=== PATIENT | female | born 1980 | race Caucasian/White ===

== ENCOUNTER 2017-09-11 14:28 | Emergency (ER) | payer BC, OTHER ==
[~2017-09-11] VITALS: Ht 175.3 cm; Wt 100.7 kg
[~2017-09-11 14:28] MED LIST: LEVO175T3 PO; LIOT5TAB9 PO; PRENTAB26 PO; SERT-234 PO
[2017-09-11 14:34] VITALS: TEMP 36.9; Ht 175.3 cm; Wt 100.7 kg
--- NOTE | 2017-09-11 15:11 | EMERGENCY ROOM VISIT NOTE ---
History First contact with patient: 14:39 Chief Complaint: ABDOMINAL PAIN Stated Complaint: PAIN IN LOWER ABD RADIATING TO BACK Nursing Triage Summary: 2 days ago started having menstrual cramps radiates to back knows it is not menstrual crampos because it is not that time of month called pcp office told to come to ed bilat lower abd pain. feels nauseated no appetite. no vomiting diarrhea History of Present Illness 37F with a PMHx of x 3 (2006, 2008, 2014), tubal ligation p/w bilateral lower abdominal pain that she describes as constant, dull and burning that has been present for 48 hours. Nothing makes the pain better, nothing makes the pain worse. She has no appetite. She is not taking anything for the pain. Pt never had her Appendix taken out. At first she thought she ate something funny and then she thought it was a RN DOCUMENTATION problem. States that the pain started as a 3/10 and then progressed to a 6/10. She tried to make an appointment with her PCP and couldn't get it. The triage nurse from [facility] sent her here. She states she does not feel ill. THe pain is also INSIDE her abdomen and not on the skin. LMP was at the end of August - this is between cycles for her. Pt denies fevers, chills, diarrhea, constipation, SOB, chest pain, dysuria, vaginal bleeding, vaginal discharge. Review of Systems See HPI for pertinent positives and negatives. A total of ten systems were reviewed and were otherwise negative. Constitutional: No fever, No chills ENT: No hearing loss Respiratory: No cough, No sputum, No wheezing, No shortness of breath Cardiovascular: No chest pain Abdomen: + pain, + nausea, No vomiting, No diarrhea, No constipation Genitourinary - Female: No dysuria, No urinary frequency, No urinary urgency , No urinary incontinence, No urinary retention Integumentary: No rash Past Medical/Surgical History Medical Problems: (1) Depression (2) Hypothyroidism Family History Cancer Hypertension Social History Smoking Status: Never Smoker Drug Use: none Marital Status: Housing Status: lives with family Occupation Status: employed Current/Historical Medications Scheduled Levothyroxine Sodium (Levothyroxine Sodium), 137 MCG PO DAILY Methylphenidate HCl (Methylphenidate HCl), 10 MG PO BID Sertraline HCl (Sertraline HCl), 200 MG PO DAILY Scheduled PRN Albuterol Hfa (Ventolin Hfa), 2 PUFFS INH Q4H PRN for Shortness of Breath Physical Exam Vital Signs Date Time Temp Pulse Resp B/P (MAP) Pulse Ox O2 Delivery O2 Flow Rate FiO2 09/11/17 14:34 36.9 96 18 128/74 97 Room Air Physical Exam Gen: No acute distress. HEENT: Head - normocephalic and atraumatic. Pupils are equal, round, and reactive to light. Extraocular eye muscles are intact and sclera are anicteric. Ears - bilaterally patent canals with noninjected tympanic membranes and no evidence of hemotympanum. Nose - moist nasal mucosa without discharge. Mouth - moist buccal mucosa. Oropharynx is nonerythematous and there is no tonsillar exudate or edema noted. Neck: Supple; no JVD, nuchal rigidity, cervical lymphadenopathy, or auscultated bruits. Heart: Regular rate and rhythm. There is a normal S1 and S2 with no murmurs, clicks, or gallops appreciated. Lungs: Clear to auscultation bilaterally with no wheezes, rales, or rhonchi. Abdomen: Soft, completely nontender, nondistended, with good bowel sounds. There are no palpable pulsatile masses or hepatosplenomegaly. There is no guarding, rigidity, or rebound noted. Abdominal pain was made worse when the patient sat up. Extremities: No evidence of cyanosis, clubbing, or edema. There are easily palpable peripheral pulses. Neuro:The patient is awake and alert, oriented to day, time, and place. Muscle strength is 5/5 in all 4 extremities. The patient has equal gas tester strength and equal pedal push and pull. There are no cerebellar signs. Medical Decision & Procedures ER Provider Diagnostic Interpretation: ABD/PELVIS NO IV OR ORAL CONT CT DOSE: 950.38 mGy.cm HISTORY: Pain Bilateral Lower Abdominal Pain TECHNIQUE: Multiaxial CT images of the abdomen and pelvis were performed without contrast. A dose lowering technique was utilized adhering to the principles of ALARA. COMPARISON STUDY: None. FINDINGS: The lung bases are clear. The unenhanced liver, spleen, gallbladder, pancreas, kidneys, and adrenal glands are within normal limits. No bowel wall thickening or obstruction. The pelvic organs are unremarkable. No suspicious lytic or blastic osseous lesions. IMPRESSION: No significant abnormality identified within the abdomen or pelvis. Laboratory Results 09/11/17 15:00 Red Blood Count 4.56, Mean Corpuscular Volume 79.6, Mean Corpuscular Hemoglobin 27.6, Mean Corpuscular Hemoglobin Concent 34.7, Mean Platelet Volume 8.7, Neutrophils (%) (Auto) 55.8, Lymphocytes (%) (Auto) 32.2, Monocytes (%) (Auto) 8.1, Eosinophils (%) (Auto) 3.7, Basophils (%) (Auto) 0.1, Neutrophils # (Auto) 3.73, Lymphocytes # (Auto) 2.16, Monocytes # (Auto) 0.54, Eosinophils # (Auto) 0.25, Basophils # (Auto) 0.01 09/11/17 15:00 Test 09/11/17 14:43 09/11/17 15:00 09/11/17 15:40 Urine Color YELLOW Urine Appearance CLEAR (CLEAR) Urine pH 7.0 (4.5-7.5) Urine Specific [place] 1.019 (1.000-1.030) Urine Protein NEG (NEG) Urine Glucose (UA) NEG (NEG) Urine Ketones NEG (NEG) Urine Occult Blood NEG (NEG) Urine Nitrite NEG (NEG) Urine Bilirubin NEG (NEG) Urine Urobilinogen NEG (NEG) Urine Leukocyte Esterase NEG (NEG) Urine WBC (Auto) 0 /hpf (0-5) Urine RBC (Auto) 0-4 /hpf (0-4) Urine Hyaline Casts (Auto) 1-5 /lpf (0-5) Urine Epithelial Cells (Auto) 5-10 /lpf (0-5) Urine Bacteria (Auto) NEG (NEG) Urine Test NEG (NEG) White Blood Count 6.70 K/uL (4.8-10.8) Red Blood Count 4.56 M/uL (4.2-5.4) Hemoglobin 12.6 g/dL (12.0-16.0) Hematocrit 36.3 % (37-47) Mean Corpuscular Volume 79.6 fL (80-100) Mean Corpuscular Hemoglobin 27.6 pg (25-34) Mean Corpuscular Hemoglobin Concent 34.7 g/dl (32-36) Platelet Count 240 K/uL (130-400) Mean Platelet Volume 8.7 fL (7.4-10.4) Neutrophils (%) (Auto) 55.8 % Lymphocytes (%) (Auto) 32.2 % Monocytes (%) (Auto) 8.1 % Eosinophils (%) (Auto) 3.7 % Basophils (%) (Auto) 0.1 % Neutrophils # (Auto) 3.73 K/uL (1.4-6.5) Lymphocytes # (Auto) 2.16 K/uL (1.2-3.4) Monocytes # (Auto) 0.54 K/uL (0.11-0.59) Eosinophils # (Auto) 0.25 K/uL (0-0.5) Basophils # (Auto) 0.01 K/uL (0-0.2) RDW Standard Deviation 38.2 fL (36.4-46.3) RDW Coefficient of Variation 13.3 % (11.5-14.5) Immature Granulocyte % (Auto) 0.1 % Immature Granulocyte # (Auto) 0.01 K/uL (0.00-0.02) Anion Gap 6.0 mmol/L (3-11) BUN/Creatinine Ratio 12.9 (10-20) Calcium Level 8.2 mg/dl (8.5-10.1) Total Bilirubin 0.3 mg/dl (0.2-1) Direct Bilirubin < 0.1 mg/dl (0-0.2) Aspartate Amino Transf (AST/SGOT) 19 U/L (15-37) Alanine Aminotransferase (ALT/SGPT) 30 U/L (12-78) Alkaline Phosphatase 90 U/L (45-117) Total Protein 7.2 gm/dl (6.4-8.2) Albumin 3.5 gm/dl (3.4-5.0) Medical Decision The patient's care and disposition was discussed with Dr. Khan, Attending ED Physician. This is a 37F with abdominal pain. Differential diagnosis include appendicitis , diverticulitis, inflammatory bowel disease, renal colic, PUD, biliary pathology, pancreatitis, mesenteric ischemia, aortic pathology, infections, genitourinary, UTI, perforated viscus, as well as others were entertained. Triage Nursing notes were reviewed. ED Course included an extensive history and physical exam, labs and imaging. 2:45 - Pt was seen and examined by resident. 3:00pm - Pt seen by Dr. Khan. 3:30 - Pelvis exam by Dr. Khan. 3:45 - Pt was updated with lab findings. Did not want anything for pain. Discussed management options with patient. She is OK for discharge and PCP follow up. The pt was informed about the findings as listed above. All questions were answered. Return instructions were outlined and the patient was discharged in good condition. The patient was referred to PCP for recheck of the current condition. Head Trauma GCS Score: 15 Impression Primary Impression: Abdominal pain of unknown cause Departure Information Dispostion Home / Self-Care Condition GOOD Referrals No Doctor, Assigned (PCP) Patient Instructions [facility] Additional Instructions Your lab work (CBC, CMP, Lipase) was normal and the CAT Scan of your Abdomen and Pelvis was also normal. There is no definitive etiology of your abdominal pain. We recommend a trial of 600mg Ibuprofen every 8 hours as needed for abdominal pain. Be sure to stay well hydrated while taking this medication. Please follow up with your PCP regarding your abdominal pain. Abdominal pain warning signs include increasing pain to the point where you cannot perform activities of daily living, worsening abdominal pain and fevers and worsening abdominal pain with an inability to tolerate oral fluids. If these occur please call your PCP or return to the ER. We also advise to drink at least 3L of water per day. Resident Involvement: Resident Care Provided Care Provided: Adult ED
[2017-09-11 15:15] LABS: BASO % 0.1 %; BASO ABS # 0.01 K/uL (0-0.2); EOS % 3.7 %; EOS ABS # 0.25 K/uL (0-0.5); HEMATOCRIT 36.3 % (37-47); HEMOGLOBIN 12.6 g/dL (12.0-16.0); IG# 0.01 K/uL (0.00-0.02); LYMPH % 32.2 %; LYMPH ABS # 2.16 K/uL (1.2-3.4); MEAN CELL VOLUME 79.6 fL (80-100); MEAN CORPUSCULAR HEMOGLOBIN 27.6 pg (25-34); MEAN CORPUSCULAR HGB CONC 34.7 g/dl (32-36); MEAN PLATELET VOLUME 8.7 fL (7.4-10.4); MONO % 8.1 %; MONO ABS # 0.54 K/uL (0.11-0.59); NEUT % 55.8 %; NEUT ABS # 3.73 K/uL (1.4-6.5); PLATELET COUNT 240 K/uL (130-400); RED CELL DISTRIBUTION WIDTH CV 13.3 % (11.5-14.5); RED CELL DISTRIBUTION WIDTH SD 38.2 fL (36.4-46.3)
--- NOTE | 2017-09-11 15:26 | DIAGNOSTIC IMAGING REPORT ---
ABD/PELVIS NO IV OR ORAL CONT CT DOSE: 950.38 mGy.cm HISTORY: Pain Bilateral Lower Abdominal Pain TECHNIQUE: Multiaxial CT images of the abdomen and pelvis were performed without contrast. A dose lowering technique was utilized adhering to the principles of ALARA. COMPARISON STUDY: None. FINDINGS: The lung bases are clear. The unenhanced liver, spleen, gallbladder, pancreas, kidneys, and adrenal glands are within normal limits. No bowel wall thickening or obstruction. The pelvic organs are unremarkable. No suspicious lytic or blastic osseous lesions. IMPRESSION: No significant abnormality identified within the abdomen or pelvis. The above report was generated using voice recognition software. It may contain grammatical, syntax or spelling errors. Electronically signed by: Elroy Sauer M.D. 09/11/2017 3:24 PM Dictated Date/Time: 09/11/2017 3:22 PM
[2017-09-11] MEDS ORDERED: VNTHFA/IN INH (15:31)
[2017-09-11] MEDS ORDERED: LEVO137T3 PO (15:31)
[2017-09-11] MEDS ORDERED: RTL10 PO (15:31)
[2017-09-11] MEDS ORDERED: ZLF/100 PO (15:31)
[2017-09-11 15:40] LABS: ALBUMIN 3.5 gm/dl (3.4-5.0); ALKALINE PHOSPHATASE 90 U/L (45-117); ALT/SGPT 30 U/L (12-78); BLOOD UREA NITROGEN 9 mg/dl (7-18); CALCIUM 8.2 mg/dl (8.5-10.1); CARBON DIOXIDE 25 mmol/L (21-32); GLUCOSE 114 mg/dl (70-99); TOTAL PROTEIN 7.2 gm/dl (6.4-8.2)
[2017-09-11 15:45] LABS: CREATININE 0.71 mg/dl (0.60-1.20); POTASSIUM 3.7 mmol/L (3.5-5.1); SODIUM 139 mmol/L (136-145)
[2017-09-11 15:50] LABS: AST/SGOT 19 U/L (15-37)
[2017-09-11 16:00] LABS: LIPASE 69 U/L (73-393)
[2017-09-11 16:01] VITALS: BP 115/76; PULSE 82; O2SAT 97
--- NOTE | 2017-09-11 17:13 | EMERGENCY ROOM VISIT NOTE ---
History Report prepared by Pancho: Bobo Zimmerman Under the Supervision of: Dr. Ramos Khan D.O. First contact with patient: 14:39 Chief Complaint: ABDOMINAL PAIN Stated Complaint: PAIN IN LOWER ABD RADIATING TO BACK Nursing Triage Summary: 2 days ago started having menstrual cramps radiates to back knows it is not menstrual crampos because it is not that time of month called pcp office told to come to ed bilat lower abd pain. feels nauseated no appetite. no vomiting diarrhea History of Present Illness The patient is a 37 year old female who presents to the Emergency Room with complaints of constant lower abdominal pain beginning two days ago. She rates her pain as a 6/10 in severity. Her pain radiates into her back. The patient describes her pain as "dull" and "burning". She called her PCP today regarding her symptoms, but was unable to be seen. She notes that she has had a small amount of "mucousy-brown discharge" vaginally, but this is normal for her. Pt denies headache, change in vision, fevers, chest pain, shortness of breath, nausea, vomiting, diarrhea, pain with urination, vaginal bleeding, and melena. LNMP was two weeks ago. The patient has a history of tubal ligation and C- section (x3). She is sexually active with a single partner. She has no history of STI. The patient reports lack of appetite recently. Source of History: patient Onset: Two days ago Position: abdomen (lower) Symptom Intensity: 6/10 Quality: burning, dull Timing: constant Associated Symptoms: + back pain, No fevers, No headache, No chest pain, No SOB, No nausea, No vomiting, No melena, No diarrhea, No urinary symptoms Review of Systems See HPI for pertinent positives & negatives. A total of 10 systems reviewed and were otherwise negative. Past Medical & Surgical Medical Problems: (1) Depression (2) Hypothyroidism Family History Cancer Hypertension Social History Smoking Status: Never Smoker Drug Use: none Marital Status: Housing Status: lives with family Occupation Status: employed Current/Historical Medications Scheduled Levothyroxine Sodium (Levothyroxine Sodium), 137 MCG PO DAILY Methylphenidate HCl (Methylphenidate HCl), 10 MG PO BID Sertraline HCl (Sertraline HCl), 200 MG PO DAILY Scheduled PRN Albuterol Hfa (Ventolin Hfa), 2 PUFFS INH Q4H PRN for Shortness of Breath Allergies Coded Allergies: Iodinated Diagnostic Agents (Verified Allergy, Severe, HIVES, SOB, 07/27/14 ) POLLEN (Verified Allergy, Mild, ITCHING, SNEEZING, 07/27/14) Physical Exam Vital Signs Date Time Temp Pulse Resp B/P (MAP) Pulse Ox O2 Delivery O2 Flow Rate FiO2 09/11/17 16:01 82 18 115/76 97 Room Air 09/11/17 14:34 36.9 96 18 128/74 97 Room Air Physical Exam GENERAL: Sitting up in bed, alert, well appearing, well nourished, no distress, non-toxic EYE EXAM: normal conjunctiva. OROPHARYNX: no exudate, no erythema, lips, buccal mucosa, and tongue normal and mucous membranes are moist NECK: supple, no nuchal rigidity, no adenopathy, non-tender LUNGS: Clear to auscultation. Normal chest wall mechanics HEART: no murmurs, S1 normal and S2 normal ABDOMEN: abdomen soft, normo-active bowel sounds, no masses, no rebound or guarding. Faint tenderness in the suprapubic region. BACK: Back is symmetrical on inspection and there is no deformity, no midline tenderness, no CVA tenderness. PELVIC: Normal female external genitalia. No cervical motion tenderness. Normal vaginal mucosa. SKIN: no rashes and no bruising UPPER EXTREMITIES: upper extremities are grossly normal. LOWER EXTREMITIES: No pitting edema. NEURO EXAM: Normal sensorium, cranial nerves II-XII grossly intact, normal speech, no gross weakness of arms, no gross weakness of legs. Medical Decision & Procedures ER Provider Diagnostic Interpretation: Radiology results as stated below per my review and the radiologist's interpretation: ABD/PELVIS NO IV OR ORAL CONT FINDINGS: The lung bases are clear. The unenhanced liver, spleen, gallbladder, pancreas, kidneys, and adrenal glands are within normal limits. No bowel wall thickening or obstruction. The pelvic organs are unremarkable. No suspicious lytic or blastic osseous lesions. IMPRESSION: No significant abnormality identified within the abdomen or pelvis. The above report was generated using voice recognition software. It may contain grammatical, syntax or spelling errors. Electronically signed by: Elroy Sauer M.D. 09/11/2017 3:24 PM Laboratory Results 09/11/17 15:00 Red Blood Count 4.56, Mean Corpuscular Volume 79.6, Mean Corpuscular Hemoglobin 27.6, Mean Corpuscular Hemoglobin Concent 34.7, Mean Platelet Volume 8.7, Neutrophils (%) (Auto) 55.8, Lymphocytes (%) (Auto) 32.2, Monocytes (%) (Auto) 8.1, Eosinophils (%) (Auto) 3.7, Basophils (%) (Auto) 0.1, Neutrophils # (Auto) 3.73, Lymphocytes # (Auto) 2.16, Monocytes # (Auto) 0.54, Eosinophils # (Auto) 0.25, Basophils # (Auto) 0.01 09/11/17 15:00 Test 09/11/17 14:43 09/11/17 15:00 09/11/17 15:40 Urine Color YELLOW Urine Appearance CLEAR (CLEAR) Urine pH 7.0 (4.5-7.5) Urine Specific [place] 1.019 (1.000-1.030) Urine Protein NEG (NEG) Urine Glucose (UA) NEG (NEG) Urine Ketones NEG (NEG) Urine Occult Blood NEG (NEG) Urine Nitrite NEG (NEG) Urine Bilirubin NEG (NEG) Urine Urobilinogen NEG (NEG) Urine Leukocyte Esterase NEG (NEG) Urine WBC (Auto) 0 /hpf (0-5) Urine RBC (Auto) 0-4 /hpf (0-4) Urine Hyaline Casts (Auto) 1-5 /lpf (0-5) Urine Epithelial Cells (Auto) 5-10 /lpf (0-5) Urine Bacteria (Auto) NEG (NEG) Urine Test NEG (NEG) White Blood Count 6.70 K/uL (4.8-10.8) Red Blood Count 4.56 M/uL (4.2-5.4) Hemoglobin 12.6 g/dL (12.0-16.0) Hematocrit 36.3 % (37-47) Mean Corpuscular Volume 79.6 fL (80-100) Mean Corpuscular Hemoglobin 27.6 pg (25-34) Mean Corpuscular Hemoglobin Concent 34.7 g/dl (32-36) Platelet Count 240 K/uL (130-400) Mean Platelet Volume 8.7 fL (7.4-10.4) Neutrophils (%) (Auto) 55.8 % Lymphocytes (%) (Auto) 32.2 % Monocytes (%) (Auto) 8.1 % Eosinophils (%) (Auto) 3.7 % Basophils (%) (Auto) 0.1 % Neutrophils # (Auto) 3.73 K/uL (1.4-6.5) Lymphocytes # (Auto) 2.16 K/uL (1.2-3.4) Monocytes # (Auto) 0.54 K/uL (0.11-0.59) Eosinophils # (Auto) 0.25 K/uL (0-0.5) Basophils # (Auto) 0.01 K/uL (0-0.2) RDW Standard Deviation 38.2 fL (36.4-46.3) RDW Coefficient of Variation 13.3 % (11.5-14.5) Immature Granulocyte % (Auto) 0.1 % Immature Granulocyte # (Auto) 0.01 K/uL (0.00-0.02) Anion Gap 6.0 mmol/L (3-11) Est Creatinine Clear Calc Drug Dose 134.4 ml/min Estimated GFR () 124.4 Estimated GFR (Non- 107.3 BUN/Creatinine Ratio 12.9 (10-20) Calcium Level 8.2 mg/dl (8.5-10.1) Total Bilirubin 0.3 mg/dl (0.2-1) Direct Bilirubin < 0.1 mg/dl (0-0.2) Aspartate Amino Transf (AST/SGOT) 19 U/L (15-37) Alanine Aminotransferase (ALT/SGPT) 30 U/L (12-78) Alkaline Phosphatase 90 U/L (45-117) Total Protein 7.2 gm/dl (6.4-8.2) Albumin 3.5 gm/dl (3.4-5.0) Lipase 69 U/L (73-393) Date/Time Source Procedure Growth Status 09/11/17 15:40 Cervix Exudate Trichomonas Preparation - Final Complete Laboratory results per my review. ED Course ED COURSE: Vital signs were reviewed and appeared normal. The patients medical record was reviewed The above diagnostic studies were performed and reviewed. ED treatments and interventions as stated above. 1441: The patient was evaluated in room A12B. A complete history and physical examination was performed. 1615: Upon reevaluation, the patient is resting comfortably. I discussed my findings with the patient and she understands and agrees with the treatment plan. Based on the patients age, coexisting illnesses, exam and lab findings the decision to treat as an outpatient was made. The patient remained stable while under my care. The patient appeared well at the time of discharge. Medical Decision Differential diagnoses includes but is not limited to gastritis, peptic ulcer disease, GERD, gallbladder disease, pancreatitis, small bowel obstruction, acute coronary syndrome, pericarditis, ischemic bowel, irritable bowel disease, irritable bowel syndrome, appendicitis, diverticulitis, malignancy, hernia, urinary tract infection, torsion, /ectopic , perforation, trauma, infectious. Patient is a 37-year-old female that presents the ER for lower pelvic/abdominal pain. She denies any new vaginal bleeding or vaginal discharge. No urinary symptoms. Abdominal exam is fairly benign. CBC along with BMP, LFTs, bilirubin lipase is normal. UA was unremarkable. was normal. CT abdomen pelvis was benign. Pelvic was unremarkable. Vitals are stable. Patient was updated at bedside. She seen independently of the resident. She is discharged follow-up with PCP as an outpatient with lower abdominal pain which I favor is likely pelvic in origin without signs of infection. Discussed with Pt concerning signs and symptoms to watch out for. Pt was instructed to follow up with their PCP and discussed with the patient their option to return to the ED at anytime for persistent or worsening symptoms. The appropriate anticipatory guidance and out-patient management, including indications for return to the emergency department, were explained at length to the patient and understood. Medication Reconcilliation Current Medication List: was personally reviewed by me Blood Pressure Screening Patient's blood pressure: Normal blood pressure Blood pressure disposition: Did not require urgent referral Impression Primary Impression: Abdominal pain of unknown cause Scribe Attestation The scribe's documentation has been prepared under my direction and personally reviewed by me in its entirety. I confirm that the note above accurately reflects all work, treatment, procedures, and medical decision making performed by me. Departure Information Dispostion Home / Self-Care Referrals No Doctor, Assigned (PCP) Forms Call Back Authorization, HOME CARE DOCUMENTATION FORM, IMPORTANT VISIT INFORMATION Patient Instructions Abdominal Pain - [facility], [facility] Additional Instructions Your lab work (CBC, CMP, Lipase) was normal and the CAT Scan of your Abdomen and Pelvis was also normal. There is no definitive etiology of your abdominal pain. We recommend a trial of 600mg Ibuprofen every 8 hours as needed for abdominal pain. Be sure to stay well hydrated while taking this medication. Please follow up with your PCP regarding your abdominal pain. Abdominal pain warning signs include increasing pain to the point where you cannot perform activities of daily living, worsening abdominal pain and fevers and worsening abdominal pain with an inability to tolerate oral fluids. If any of the above occur please call your PCP or return to the ER. We also advise to drink at least 3L of water per day.
== END 2017-09-11 16:18 | disposition home or self-care (01) ==
LOC: C.EDB 14:29 → C.EDA 16:18
DX: R10.30 Lower abdominal pain, unspecified (principal); E03.9 Hypothyroidism, unspecified; F32.9 Major depressive disorder, single episode, unspecified; Z91.041 Radiographic dye allergy status; Z91.048 Other nonmedicinal substance allergy status

== ENCOUNTER 2023-09-16 13:18 | Observation (INO) ==
--- OUTSIDE RECORDS SUMMARY | 2023-09-16 13:21 | External Medical Summary | Summary of Care ---
Author Name Unknown Organization [facility] Address [address] [address] Phone [phone] Care Team Providers Care Wool Supplier Name Role Phone Chaya Thao DO Primary Care Provider [phone] Reason for Visit * Reason Comments Outpatient Testing Encounter Details Date Type Department Care Team (Late st Contact Info) Description 08/27/2023 8:30 AM EDT Laboratory Laboratory, [facility] [address] [facility] [place] [phone] [facility] [address] [facility] [place] [address] Screening for cardiovascular condition; [employer] Research Other*[id number] Allergies Active Allergy Reactions Criticality Noted Date Comments Iodinated Contrast Media 03/23/2010 hives documented as of this encounter (statuses as of 08/27/2023) Medications Medication Sig Dispensed Refills Start Date End Date Status Cholecalciferol (VITAMIN D-3) 1000 UNITS Capsule Take 1 Cap by mouth daily. 0 12/22/2015 Active fexofenadine (TOMMY ALLERGY) 180 MG Tablet Take 1 Tab by mouth daily. Use as needed for worsening nasal allergy symptoms 0 01/21/2020 Active FLUoxetine HCl 40 MG Oral Capsule (PROzac) Take 2 Capsules by mouth in the morning. Pt takes 2 tablets daily. . 0 Active Fluticasone Propionate 50 MCG/ACT Nasal Suspension (Flonase)Indication s:Seasonal allergic rhinitis due to pollen Administer 2 Sprays into nostril daily. 16 g 5 05/27/2020 Active Additional Information Patient not taking.Reported on 08/17/2023 Famotidine 20 MG Oral Tablet (Pepcid)Indications :Acute gastritis without hemorrhage, unspecified gastritis type Take 1 Tab by mouth 2 times a day. 60 Tab 11 08/31/2020 Active Dicyclomine HCl 10 MG Oral Capsule (Bentyl) Take 1 Cap by mouth 4 times a day as needed (for abdomninal pain). 60 Cap 2 09/21/2020 Active Albuterol Sulfate HFA 108 (90 Base) MCG/ACT Inhalation Aerosol SolutionIndications :Mild intermittent asthma with exacerbation Inhale 2 Puffs by mouth every 6 hours as needed for Cough or Wheezing. 18 g 2 05/09/2021 Active Fluticasone Furoate-Vilanterol 100-25 MCG/INH Inhalation Aerosol Powder Breath Activated (BREO ellipta) Inhale by mouth 1 Puff in the morning. Use for worsening/persiste nt asthma symptoms. 28 Each 5 08/05/2021 Active Additional Information Patient not taking.Reported on 08/17/2023 Ferrous Sulfate 325 (65 Fe) MG Oral Tablet (Feosol) Take 1 Tablet by mouth daily with breakfast. 0 Active Armodafinil 200 MG Oral Tablet 150 0 08/17/2022 Active Omeprazole 40 MG Oral Capsule Delayed Release (PriLOSEC) take 1 capsule by mouth every morning 1 hour before breakfast 30 Capsule 11 12/12/2022 Active Synthroid 150 MCG Oral Tablet 1 tablet 6 days a week and 2 tablets 1 day a week (at least 30 min prior to breakfast or other meds) levothyroxine- generic not working 40 Tablet 5 12/13/2022 Active Montelukast Sodium 10 MG Oral Tablet (Singulair) take 1 tablet by mouth every evening 30 Tablet 2 12/15/2022 Active documented as of this encounter (statuses as of 08/27/2023) Active Problems Problem Noted Date Diagnosed Date Vaginal burning 04/13/2023 PLMD (periodic limb movement disorder) Abnormal uterine bleeding (AUB) 01/12/2023 Mood swings 01/12/2023 JORDAN on CPAP 12/02/2021 Nostril infection 02/17/2021 Nasal abscess 12/07/2020 Primary osteoarthritis of both knees 06/24/2020 Recurrent sinus infections 01/21/2020 Mild persistent asthma without complication 01/05 Major depressive disorder, recurrent 05/27/2018 Chronic fatigue 02/05/2018 Primary hypothyroidism 11/13/2016 History of 3 sections 06/29/2008 Overview: Repeat C-Sx at term scheduled Patient given flu vaccine. 01/25/2009 Reyna Florentino RN VSD (ventricular septal defect) 02/06/2003 Overview: echo at 22 -24wks SBE (subacute bacterial endocarditis) prophylaxi s candidate 02/06/2003 documented as of this encounter (statuses as of 08/27/2023) Resolved Problems Problem Noted Date Diagnosed Date Resolved Date LUQ pain 12/02/2021 01/12/2023 Allergic conjunctivitis, bilateral 01/21/2020 09/04/2020 Allergic rhinitis 01/21/2020 09/04/2020 Snoring 02/05/2018 09/04/2020 Bilateral carpal tunnel syndrome 04/06/2016 09/04/2020 Palpitations 03/03/2016 09/04/2020 Acquired autoimmune hypothyroidism 02/10/2015 11/13/2016 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 Placenta previa without hemorrhage 06/29/2014 12/30/2016 Supervision of other high-risk 03/16/2014 04/06/2016 Overview: ICD-10 update of inactive term Placenta previa without hemorrhage 03/16/2014 07/17/2014 Overview: 1. Discussed complications associated with placenta previa. The primary risk is bleeding. Also explained that there is 5-10% risk of a placenta accreta. 2. Recommend pelvic rest for any previa that is experiencing vaginal bleeding or that persists after 32 weeks. 3. Recommend Maternal Medicine ultrasound to evaluate placental position at 32 weeks gestation and if still persists, then again at 35-36 weeks. 4. Recommend section delivery between 36w0d and 37w6d for any previa within 1cm of the internal cervical os without amniocentesis for lung maturity. 5. If placental edge is 1cm or greater from the internal cervical os and no vaginal bleeding has occurred, then trial of labor should be considered and may continue to 41 weeks gestation. 6. Characteristics suspicious for placenta accreta, such as placental lakes and/or loss of uterine/placental definition, are not appreciated on today's ultrasound. If there is sonographic concern for accreta or high clinical suspicion, we recommend delivery by between 34w0d and 35w6d. Acute sinusitis 03/09/2014 04/06/2016 AMA (advanced maternal age) multigravida 35+ 4 12/30/2016 Depression complicating , antepartum 01/10/20 14 09/04/2020 Medication exposure during f irst trimester of 01/09/2014 12/30/2016 Hypothyroid in , antepartum 12/05/2013 07/17/2014 Overview: 12/05/13 @ [facility] pt taking Levothyroxine 175mcg and Liothyronine 5mg daily; TSH: 1.65 Endocrinology 12/17/13: increased cytomel 5mg in AM, 2.5mg in PM Elderly multigravida 12/05/2013 015 Overview: Desires [id number]; offer MSAFP after 15wks Patient received flu vaccine. 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 01/17/2009 12/05/2013 Overview: +RV culture; IV Abx in labor Ovarian cyst 07/05/2008 12/05/2013 Overview: L ovarian cyst on early sono -- repeat scan early August-[facility] for 08/03 Nausea with vomiting 06/29/2008 014 Overview: Diet discussed. Rx Phenergan 25 mg tabs and Zofran 8 mg ODT. Poor growth, affecting management of mother, antepartum condition or complication 09/17/2006 02/06/2008 Allergic conjunctivitis 03/16/200505/2015 Intermittent asthma with rel iever use up to twice per week 03/16/2005 01/21/2020 Headache 11/25/2003 02/06/2008 Overview: ICD-10 update of inactive term Hypothyroidism 02/06/2003 12/05/2013 Overview: On Meds -- check studies every trimester TSH @28w-13; increase Levoythyroxine to 175mcg daily repeat TSH in 4-6weeks TSH@ 36w -5.72; increase Levothyroxine to 200mcg Allergic rhinitis 02/06/2003 04/06/2016 EXTRINSIC ASTHMA, UNSPEC 02/06/200306/2007 PATELLAR TENDINITIS- patellar dislocation 02/06/2003 02/06/2008 Major depressive disorder 02/06/2003 Overview: On Zoloft 200mg daily ICD-10 update of inactive term PRESCRIP-ORAL CONTRACEPT 02/06/200306/2007 documented as of this encounter (statuses as of 08/27/2023) Immunizations Name Administration Dates Next Due COVID-19 mRNA, LNP-s, No Pre serve, 2-Dose Series (Moderna) 07/03/2020,05/29/2020 H1N1 2009 Influenza, IM 03/15/2009 Hepatitis B, 20+ yrs 04/12/2023,11/10/2022,10/11 Pneumococcal Conjugate Vacci ne, 20-valent ([id number]) 10/11/2022 Pneumococcal Polysaccharide PPV23 (Pneumovax) 05/31/2011,2011(Deferred: Patient Refused) Seasonal Influenza, PF, 6 M & above, IM , (FluLaval or Fluzone) 03/09/2023,02/10/2022,03/24/2021,02/05,01/16/2019,02/05/2018,01/26/20 17 Seasonal Influenza, Quadriva lent, No Preserve, IM 04/06/2016 04/06/2017 Seasonal Influenza, Split, I IV3, With Preserve, Inj 01/29/2014,03/10/2013,02/14/2012,02/05,01/25/2009,05/02/2007 TDAP (age 10 and older)(Boostrix) 07/24/2014 TDAP (age 11 and older)(Adacel) 02/13/20,09/03/2008(Deferred: Patient Refused) documented as of this encounter Social History Tobacco Use Types Packs/Day Years Used Date Smoking Tobacco: Never Smokeless Tobacco: Never Comments:no passive smoke Alcohol Use Standard Drinks/Week Comments No 0 (1 standard drink = 0.6 oz pur e alcohol) PHQ-2 Answer Date Recorded PHQ Adult Total Score 2 04/20/2021 Hunger Vital Sign Answer Date Recorded Worried About Running Out of Food in the Last Ye ar Never true 05/22/2019 Ran Out of Food in the Last Year Never true 05/22/2019 Sex and Gender Information Value Date Recorded Sex Assigned at Female 11/19/2019 9:42 AM EDT Gender Identity Female 11/19/2019 9:42 AM EDT Sexual Orientation Straight 11/19/2019 9: 42 AM EDT Job Start Date Occupation Industry Not on file Not on file Not on file documented as of this encounter Plan of Treatment Upcoming Encounters Date Type Department Care Team (Latest Contact Info) Description 08/27/2023 10:40 AM EDT Office Visit Family Practice [facility] [address] [facility] [place] [address] June Colvin DO [address] [place] [address] 09/20/2023 3:30 PM EDT Office [facility] [place] [facility] [phone] Parth Sarabia MD [address] [facility] [place] [address] 09/28/2023 7:30 AM EDT Hospital Encounter OR [facility], Operating Room, [facility] 1st Floor [address] [place] [address] Parth Sarabia MD [address] [place] [address] 09/28/2023 7:30 AM EDT - 09/28/2023 9:50 AM EDT Surgery OR [facility], Operating Room, [facility] 1st Floor [address] [place] [address] Parth Sarabia MD [address] [place] [phone] LAPAROSCOPIC HYSTERECTOMY REMOVAL TUBES AND/OR OVARIES FOR UTERUS 250GM OR LESS Pending Results Name Type Priority Associated Diagnoses Date /Time LIPID PANEL WITH DIRECT LDL IF TG IS HIGH Lab Routine Screening for cardiovascular condition 08/27/2023 8:37 AM EDT MYCODE SUBSEQUENT ADULT Lab Routine [employer] Other*[id number] 08/27/2023 8:37 AM EDT MYCODE SST1 Lab Routine [employer] Other*[id number] 08/27/2023 8:37 AM EDT MYCODE SST2 Lab Routine [employer] Other*[id number] 08/27/2023 8:37 AM EDT Scheduled Orders Name Type Priority Associated Diagnoses Orde r Schedule LIPID PANEL WITH DIRECT LDL IF TG IS HIGH Lab Routine Screening for cardiovascular condition Expected: 08/27/2023 (Approximate), Expires: 08/26/2024 Scheduled Procedures Name Priority Associated Diagnoses Date/Ti me LAPAROSCOPIC HYSTERECTOMY REMOVAL TUBES AND/OR OVARIES FOR UTERUS 250GM OR LESS Abnormal uterine bleeding (AUB) Adenomyosis Pelvic pain in female 09/28/2023 7:30 AM EDT COLONOSCOPY FLEXIBLE PROXIMAL DIAGNOSTIC Recall Screening for colon cancer Health Maintenance Due Date Last Done Comments HPV/Co-Test 02/25/2008 Lipid Panel 10/19/2010 10/19/2005 COVID-19 Vaccine ( season) 2023 07/03/2020, 05/29/2020 Mammogram 03/26/2024 03/26/2023, 03/07, 04/12/2021, Additional history exists DTaP,Tdap,and Td Vaccines (3 - Td or Tdap) 07/24/2024 07/24/2014, 02/12/2009 TSH 08/16/2024 08/17/2023, 05/07, 03/19/2023, Additional history exists Cervical Cancer Screening 01/10/2025 Pap Smear 01/10/2025 01/10/2022, 07/06, 12/19/2015, Additional history exists Diabetes Screening 03/19/2026 03/19/2023, 0 12/01/2022, 08/30/2022, Additional history exists COLONOSCOPY-EVERY 5 YRS AGES 18-100 11/24/2026 11/24/2021, 11/24/2021, 09/27/2020, Additional history exists COLONOSCOPY-ANNUAL AGES 18-100 Discontinued 11/24/2021, 11/24/2021, 09/27/2020, Additional history exists Pneumococcal Vaccine: Pediatrics (0 to 5 Years) and At-Risk Patients (6 to 64 Years) Completed 10/11/2022, 05/31/2011 Influenza Vaccine (FLU shot) Completed 03/09/2023, 02/10/2022, 03/24/2021, Additional history exists Hepatitis B Completed 04/12/2023, 0711/2022, 10/11/2022 GARDASIL-HPV IMMUNIZATION SERIES Aged Out No longer eligible based on patient's age to complete this topic MENINGOCOCCAL (MENACTRA/MENVEO) Aged Out No longer eligible based on patient's age to complete this topic documented as of this encounter Medical Devices Not on filedocumented as of this encounter Visit Diagnoses Diagnosis Screening for cardiovascular condition Screening for other and unspecified cardiovascular conditions [employer] Other*[id number] Abnormal uterine bleeding (AUB) Adenomyosis Endometriosis of uterus Pelvic pain in female Unspecified symptom associated with female genital organs documented in this encounter Care Teams Wool Supplier Relationship Specialty Start Date End Date Chaya Thao DO [address] [place] [phone] PCP - General Family Medicine 03/03/16 documented as of this encounter
--- OUTSIDE RECORDS SUMMARY | 2023-09-16 13:21 | External Medical Summary | Summary of Care ---
Author Name Unknown Organization [facility] Address [address] [facility] [place] [address] Phone [phone] Care Team Providers Care Lockstitch Collar Setter Name Role Phone Chaya Thao DO Primary Care Provider [phone] Reason for Visit * Reason Comments NEW PATIENT Right middle finger pain Encounter Details Date Type Department Care Team (Late st Contact Info) Description 08/31/2023 8:15 AM EDT Office Visit Orthopaedics [facility] [address] [place] [address] SharerLibia PA-C [address] [place] [address] Closed nondisplaced fracture of middle phalanx of left middle finger, initial encounter*; Pain of left middle finger Allergies Active Allergy Reactions Criticality Noted Date Comments Iodinated Contrast Media 03/23/2010 hives documented as of this encounter (statuses as of 08/31/2023) Medications Medication Sig Dispensed Refills Start Date [...] every evening 30 Tablet 2 12/15/2022 Active Hospital, Clinic, or Other Facility Administered Medication Ordered Dose Route Frequency Start Date End Date Status Albuterol Sulfate (Proventil) (2.5 MG/3ML) 0.083% inhalation solution 2.5 mgIndications:SOB (shortness of breath),Mild persistent asthma without complication 2.5 mg NEBULIZER ONCE PRN 08/27/2023 08/26/2024 Active documented as of this encounter (statuses as of 08/31/2023) Active Problems Problem Noted Date Diagnosed Date [...] as of this encounter (statuses as of 08/31/2023) Resolved Problems Problem Noted Date Diagnosed Date [...] in AM, 2.5mg in PM Elderly multigravida 12/05/201307/17/ 015 Overview: Desires [id number]; offer MSAFP after 15wks Patient received flu vaccine. 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 Rx Phenergan 25 mg tabs and Zofran 8 mg ODT. Poor growth, affecting management of mother, antepartum condition or complication 09/17/2006 02/06/2008 Allergic conjunctivitis 03/16/2005 1205/2015 Intermittent asthma with rel iever use up [...] as of this encounter (statuses as of 08/31/2023) Immunizations Name Administration Dates Next Due COVID-19 mRNA, LNP-s, No Pre serve, 2-Dose Series (Moderna) 07/03/2020,05/29/2020 H1N1 2009 Influenza, IM 03/15/2009 Hepatitis B, 20+ yrs 04/12/2023,11/10/2022,10/11 Pneumococcal Conjugate Vacci ne, 20-valent ([id number]) 10/11/2022 Pneumococcal Polysaccharide PPV23 (Pneumovax) 05/31/2011,2011(Deferred: Patient Refused) Seasonal Influenza, PF, 6 M & above, IM , (FluLaval or Fluzone) 03/09/2023,02/10/2022,03/24/2021,02/05,01/16/2019,02/05/2018,01/26/20 17 Seasonal Influenza, Quadriva lent, No Preserve, IM 04/06/2016 04/06/2017 Seasonal Influenza, Split, I IV3, With Preserve, Inj 01/29/2014,03/10/2013,02/14/2012,02/05,01/25/2009,05/02/2007 TDAP (age 10 and older)(Boostrix) 07/24/2014 TDAP (age 11 and older)(Adacel) 02/13/20 09,09/03/2008(Deferred: Patient Refused) documented as of this encounter [...] on file documented as of this encounter Progress Notes * Sharer, Libia Ortega PA-C - 08/31/2023 8:34 AM EDT Lenka Meyer is a 43 year old female who presents for consultation to [facility] for right hand injury/pain. Consult requested by Self. Lenka Meyer is here unaccompanied History: Patient is a 43 year old female here today with right hand/finger pain. Reports pain started 08/30/2023. Patient states she injured her hand when she jammed her finger into a table as it was falling.She complains of pain along PIP joint. Reports difficulty with finger motion. Notes associated swelling. She denies any previous hand injuries. She denies any numbness or tingling. Review of systems: All others negative except those noted above in HPI. Past Medical History: Diagnosis Date ALLERGIC RHINITIS NOS 02/06/2003 Asthma, severity to be determined 03/16/2005 rare inhaler use Carpal tunnel syndrome on both sides 2015 Chronic fatigue 02/05/2018 Depressive disorder, not elsewhere classified 02/06/2003 using zoloft Hypothyroidism 02/06/2003 Rick's INFORMATION was told to have IgG transfusions Palpitations 03/03/2016 SBE (subacute bacterial endocarditis) prophylaxis candidate 02/06/2003 Sleep apnea, obstructive Snoring 02/05/2018 VENTRICULAR SEPTAL DEFECT-almost closed 02/06/2003 Family History Problem Relation Age of Onset Thyroid Disorder Mother hypothyroidism Allergies Mother nasal allergies Depression Mother Heart Disorder Father a.fib Hypertension Father Allergies Father allergic rhinitis Allergies Daughter food allergies; nasal allergies Asthma Daughter Allergies Daughter nasal and food allergies Cancer Grandmother (Maternal) Hod dx Allergies Grandfather (Maternal) nasal allergies Heart Disorder Grandfather (Maternal) CHF Prostate cancer Grandfather (Maternal) Stroke Grandmother (Paternal) TIA Skin cancer Grandmother (Paternal) Macular degeneration Grandmother (Paternal) No Past Hx Son Social History Socioeconomic History Marital status: Spouse name: Stone Alvarado Number of children: 2 Years of education: 17 Highest education level: Not on file Occupational History Occupation: housewife Tobacco Use Smoking status: Never Smokeless tobacco: Never Tobacco comments: no passive smoke Vaping Use Vaping Use: Never used Substance and Sexual Activity Alcohol use: No Drug use: No Sexual activity: Yes Partners: Male control/protection: Surgical Comment: BTL Other Topics Concern Not on file Social History Narrative Not on file Social Determinants of Health Financial Resource Strain: Not on file Food Insecurity: No Food Insecurity (05/22/2019) Hunger Vital Sign Worried About Running Out of Food in the Last Year: Never true Ran Out of Food in the Last Year: Never true Transportation Needs: Not on file Physical Activity: Not on file Stress: Not on file Social Connections: Not on file Intimate Partner Violence: Not on file Housing Stability: Not on file Past Surgical History: Procedure Laterality Date CARPAL TUNNEL SURGERY Bilateral 05/2016, and 09/2016 DELIVERY 2006, 2008, 2015 COLONOSCOPY 09/27/2020 COLONOSCOPY, DIAGNOSTIC (RECTUM) 11/24/2021 normal, repeat 5 yrs / COLONOSCOPY FLEXIBLE PROXIMAL DIAGNOSTIC performed by Audrey Rothman MD at ENDOSCOPY [facility] DENTAL SURGERY PROCEDURE NEC 1998 wisdom teeth EGD, FLEXIBLE, DIAGNOSTIC 11/24/2021 normal bx / ESOPHAGOGASTRODUODENOSCOPY (EGD), FLEXIBLE, TRANSORAL, DIAGNOSTIC performed by Audrey Mendieta MD at ENDOSCOPY [facility] INJECT DX/THER SUBSTANCE INTERLAMINAR LUMBAR/SACRAL W IMAGE GUIDE 11/04/2018 INJECTION SPINE LUMBAR OR SACRAL performed by Trey Calle DO at OR [facility] REPAIR OF KNEE CARTILAGE Right 10/2016 Dr. Dey Physical Exam There were no vitals filed for this visit. Estimated body mass index is 34.83 kg/m as calculated from the following: Height as of 08/17/23: 1.753 m (5' 9.02"). Weight as of 08/27/23: 107 kg (236 lb). General: generally well-nourished and in no acute distress HEENT: normocephalic, atraumatic, sclera anicteric. Psych: mood and affect normal , cooperative Card: Peripheral pulses: normal in affected extremity (s) Resp: equal chest rise, non-tachypneic, non-labored breathing Skin: no rash, normal Neuro: Coordination: normal; Sensation: normal on affected extremity (s) MSK: Hand Exam, Bilateral Inspection: Moderate swelling left middle finger. No ecchymosis. Skin intact. Palpation: Tenderness of the PIP joint left middle finger. Range of Motion: Range of motion: symmetric and normal in both hands Rotation, angulation, or crossover: no Strength: [employer] Coordinator - 5/5 Finger spread - 5/5 Flex - 5/5 Ext - 5/5 T Special tests: Digits: Collaterol ligaments intact - yes Boutonniere deformity - no [place]-neck deformity - no Mallet finger - no Lavelle's test for central slip- negative Radiology (I have personally reviewed the following films): X-rays of the left middle finger were reviewed with patient. Those x-rays show a nondisplaced volar plate avulsion fracture Assessment and Plan: Closed nondisplaced fracture of middle phalanx of left middle finger, initial encounter (Primary) Pain of left middle finger - XR FINGERS 2 OR MORE VIEWS Patient will be immobilized aluminum splint in slight flexion for 5 to 10 days as needed for comfort. May then advance to jennifer tape. Patient will follow up in 3-4 weeks with repeat x-ray Follow Up: Return for 3-4 weeks for finger fracture. | For: 3-4 weeks for finger fracture Libia Diego PA-C [address]opaed[address] [address] documented in this encounter Nursing Notes * Virginia Jaime ATC - 08/31/2023 8:06 AM EDT Right middle finger pain. States that she has been icing and taking medication for pain control. Ice made finger hurt worse. States that she went to catch a bookcase at a book far and her finger musthave jammed into a space and got caught. States she has most pain with bending. Finger is swollen. documented in this encounter Plan of Treatment Upcoming Encounters Date Type Department Care Team (Latest Contact Info) Description 09/03/2023 7:45 AM EDT Imaging Radiology [facility] 1st Floor, [address] [place] [address] 09/03/2023 8:15 AM EDT Imaging Radiology [address] [place] [address] 09/20/2023 3:30 PM EDT Office Visit Gynecology/[place]st[place] [address] [place] [id number] Parth Sarabia MD [address] [place] [address] 09/25/2023 11:00 AM EDT Office Visit Orthopaedics [facility] [address] [facility] [place] [address] Sharer, Libia Ortega PA-C [address] [facility] [place] [address] 09/28/2023 7:30 AM EDT Hospital Encounter OR [facility], Operating Room, [facility] 1st Floor [address] [place] [address] Parth Sarabia MD [address] [place] [address] 09/28/2023 7:30 AM EDT - 09/28/2023 9:50 AM EDT Surgery OR [facility], Operating Room, [facility] 1st Floor [address] [place] [address] Parth Sarabia MD [address] [place] [id number] LAPAROSCOPIC HYSTERECTOMY REMOVAL TUBES AND/OR OVARIES FOR UTERUS 250GM OR LESS 10/16/2023 1:30 PM EDT PulmDiagnostic Pulmonary Function Lab, [facility] [address] [facility] [place] [address] [place], [address] [facility] [place] [address] 11/22/2023 1:00 PM EDT Imaging Cardiac Studies, [facility] [address] [facility] [place] [address] 01/18/2024 7:00 AM EDT Office Visit Sleep Disorders [facility] [address] [facility] [place] [phone] Evi Bartholomew CRNP [address] [place] [address] Pending Results Name Type Priority Associated Diagnoses Date /Time XR FINGERS 2 OR MORE VIEWS Medical Imaging Routine Pain of left middle finger 08/31/2023 8:25 AM EDT Scheduled Procedures Name Priority Associated Diagnoses Date/Ti me LAPAROSCOPIC HYSTERECTOMY REMOVAL TUBES AND/OR OVARIES FOR UTERUS 250GM OR LESS Abnormal uterine bleeding (AUB) Adenomyosis Pelvic pain in female 09/28/2023 7:30 AM EDT COLONOSCOPY FLEXIBLE PROXIMAL DIAGNOSTIC Recall Screening for colon cancer Health Maintenance Due Date Last Done Comments HPV/Co-Test 02/25/2008 COVID-19 Vaccine (3 - 2022- season) 2023 07/03/2020, 05/29/2020 Mammogram 03/26/2024 03/26/2023, [...] 11/24/2026 11/24/2021, 11/24/2021, 09/27/2020, Additional history exists Lipid Panel 08/26/2028 08/27/2023, 10/19/2005 COLONOSCOPY-ANNUAL AGES 18-100 Discontinued 11/24/2021, 11/24/2021, 09/27/2020, Additional history exists Pneumococcal Vaccine: Pediatrics (0 to 5 Years) and At-Risk Patients (6 to 64 Years) Completed 10/11/2022, 05/31/2011 Influenza Vaccine (FLU shot) Completed 03/09/2023, 02/10/2022, 03/24/2021, Additional history exists Hepatitis B Completed 04/12/2023, 07/11/2022, 10/11/2022 GARDASIL-HPV IMMUNIZATION SERIES Aged Out No longer eligible based on patient's age to complete this topic MENINGOCOCCAL (MENACTRA/MENVEO) Aged Out No longer eligible based on patient's age to complete this topic documented as of this encounter Medical Devices Not on filedocumented as of this encounter Visit Diagnoses Diagnosis Closed nondisplaced fracture of middle phalanx of left middle finger, initial encounter- Primary Pain of left middle finger Abnormal uterine bleeding (AUB) Adenomyosis Endometriosis of uterus Pelvic pain in female Unspecified symptom associated with female genital organs documented in this encounter Care Teams Lockstitch Collar Setter Relationship Specialty Start Date End Date Chaya Thao DO [address] [facility] [place] [address] PCP - General Family Medicine 03/03/16 documented as of this encounter
--- OUTSIDE RECORDS SUMMARY | 2023-09-16 13:21 | External Medical Summary ---
Author Name Unknown Address Unknown Organization K01:[facility] [place] [address] [place] [address] Laboratory Report Ordering Provider Test Date Status SANJU POSADAS 08/27/2023 08:37:41 Final Observation Date Value Abnormality Reference (Units ) Status MYCODE SPECIMEN-SST 08/27/2023 08:37:41 Freezing of extracted DNA, whole blood and/or serum. Final Performing Location LAB[facility]AT[facility] - [address] [place] [address]
--- OUTSIDE RECORDS SUMMARY | 2023-09-16 13:21 | External Medical Summary | Summary of Care ---
Author Name Unknown Organization [facility] Address [address] [place] [address] Phone [phone] Care Team Providers Care Laborer Cheesemaking Name Role Phone Chaya Thao DO Primary Care Provider [phone] Reason for Referral * Precert (Within 10 days (routine)) - Pending Review Specialty Diagnoses / Procedures Referred By Contac t Referred To Contact Cardiac Studies Diagnoses SOB (shortness of breath) Chronic fatigue Chest pain, unspecified type Procedures ECHO, STRESS (EXERCISE) W/ PHYSICIAN June Colvin DO [address] [place] [address] Referral ID Status Reason Start Date Expiration Date Visits Requested Visits Authorized [id number] Pending Review Precert 08/27/2023 999 999 * Precert (Within 10 days (routine)) - Pending Review Specialty Diagnoses / Procedures Referred By Contac t Referred To Contact Radiology Diagnoses SOB (shortness of breath) Mild persistent asthma without complication Procedures CT CHEST WO CONTRAST June Colvin DO [address] [place] [address] Referral ID Status Reason Start Date Expiration Date V isits Requested Visits Authorized [id number] Pending Review 08/27/2023 999 999 * Evaluate & Treat - Unlimited Visits (Within 10 days (routine)) - Pending Review Specialty Diagnoses / Procedures Referred By Contac t Referred To Contact Sleep Medicine / Sleep Disorders Diagnoses SOB (shortness of breath) Chronic fatigue June Colvin DO [address] [place] [address] Referral ID Status Reason Start Date Expiration Date Visits Requested Visits Authorized [id number] Pending Review Specialty Services Required 08/27/2023 2 2 Question Answer Referral Priority Within 10 days (routine) Where should this appointment be scheduled? [facility] Sleep Apnea Testing and Management Does the patient snore and/or gasp at night or has been told they stop breathing at night? Yes Reason for Visit * Reason Comments Emergency Department Follow-Up Pt being seen for ER f/u apt and was seen for increase weakness and SOB, was sent from our office. Still has same symptoms and not better. Encounter Details Date Type Department Care Team (Late st Contact Info) Description 08/27/2023 10:40 AM EDT Office Visit [facility] [address] [place] [address] June Colvin DO [address] [place] [address] SOB (shortness of breath)*; Chronic fatigue; LUQ pain; Mild persistent asthma without complication; Chest pain, unspecified type Allergies Active Allergy Reactions Criticality Noted Date [...] morning 1 hour before breakfast 30 Capsule 12/12/2022 Active Synthroid 150 MCG Oral Tablet [...] PM Elderly multigravida 12/05/2013 015 Overview: Desires [id number]; offer MSAFP after 15wks Patient received flu vaccine. 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 01/17/2009 12/05/2013 Overview: +RV culture; IV Abx in labor Ovarian cyst 07/05/2008 12/05/2013 Overview: L ovarian cyst on early sono -- repeat scan early August-[facility] for 08/03 Nausea with vomiting 06/29/2008 [...] yrs 04/12/2023,11/10/2022,10/11 Pneumococcal Conjugate Vacci ne, 20-valent ([id number]) 10/11/2022 Pneumococcal Polysaccharide PPV23 (Pneumovax) 05/31/2011,2011(Deferred: Patient [...] Date Smoking Tobacco: Never Smokeless Tobacco: Never Tobacco Cessation:Counseling Given: Not Answered Comments:no passive smoke Alcohol Use Standard Drinks/Week [...] on file documented as of this encounter Last Filed Vital Signs Vital Sign Reading Time Taken Comments Blood Pressure 126/80 08/27/2023 10:36 AM EDT Pulse 87 08/27/2023 10:36 AM EDT Temperature 37.3 C (99.1 F) 08/27/2023 10:36 AM E DT Respiratory Rate 16 08/27/2023 10:36 AM EDT Oxygen Saturation - - Inhaled Oxygen Concentration - - Weight 107 kg (236 lb) 08/27/2023 10:36 AM EDT Height - - Body Mass Index 34.83 08/17/2023 11:26 AM EDT documented in this encounter Progress Notes * June Colvin, - 08/27/2023 10:42 AM EDT Subjective: Lenka Meyer is a 43 year old female. Chief Complaint Patient presents with Emergency Department Follow-Up Pt being seen for ER f/u apt and was seen for increase weakness and SOB, was sent from our office. Still has same symptoms and not better. There are no exam notes on file for this visit. HPI: This is a 43 year old female with PMHx as below presents with acute illness 2 weeks fatigue and sob. Pulse and chest pain will inc with activity - not normally doing that Went to Er - no acute abnormalities noted Pos hx of asthma - not taking breo/flonase. Doesn't feel asthma related. But did advise to start flonase and breo to see if that helps with high pollen count right now Pos snoring Pos fullness LUQ Pulse ox normal at home VSS Health Maintenance Due Topic Date Due Lipid Panel 10/19/2010 COVID-19 Vaccine ( season) 2023 Patient Active Problem List Diagnosis Code VSD (ventricular septal defect) Q21.0 SBE (subacute bacterial endocarditis) prophylaxis candidate Z29.89 History of 3 sections Z98.891 Primary hypothyroidism E03.9 Chronic fatigue R53.82 Major depressive disorder, recurrent (HCC) F33.9 Recurrent sinus infections J32.9 Mild persistent asthma without complication J45.30 Primary osteoarthritis of both knees M17.0 Nasal abscess J34.0 Nostril infection J34.89 JORDAN on CPAP G47.33 Abnormal uterine bleeding (AUB) N93.9 Mood swings R45.86 PLMD (periodic limb movement disorder) G47.61 Vaginal burning N94.9 Current Outpatient Medications Medication Sig Dispense Refill Cholecalciferol (VITAMIN D-3) 1000 UNITS Capsule Take 1 Cap by mouth daily. FLUoxetine HCl 40 MG Oral Capsule (PROzac) Take 2 Capsules by mouth in the morning. Pt takes 2 tablets daily. . Famotidine 20 MG Oral Tablet (Pepcid) Take 1 Tab by mouth 2 times a day. 60 Tab 11 Albuterol Sulfate HFA 108 (90 Base) MCG/ACT Inhalation Aerosol Solution Inhale 2 Puffs by mouth every 6 hours as needed for Cough or Wheezing. 18 g 2 Ferrous Sulfate 325 (65 Fe) MG Oral Tablet (Feosol) Take 1 Tablet by mouth daily with breakfast. Armodafinil 200 MG Oral Tablet 150 Omeprazole 40 MG Oral Capsule Delayed Release (PriLOSEC) take 1 capsule by mouth every morning 1 hour before breakfast 30 Capsule 11 Synthroid 150 MCG Oral Tablet 1 tablet 6 days a week and 2 tablets 1 day a week (at least 30 min prior to breakfast or other meds) levothyroxine- generic not working 40 Tablet 5 Montelukast Sodium 10 MG Oral Tablet (Singulair) take 1 tablet by mouth every evening 30 Tablet 2 fexofenadine (TOMMY ALLERGY) 180 MG Tablet Take 1 Tab by mouth daily. Use as needed for worseningnasal allergy symptoms Fluticasone Propionate 50 MCG/ACT Nasal Suspension (Flonase) Administer 2 Sprays into nostril daily. (Patient not taking: Reported on 08/17/2023) 16 g 5 Dicyclomine HCl 10 MG Oral Capsule (Bentyl) Take 1 Cap by mouth 4 times a day as needed (for abdomninal pain). 60 Cap 2 Fluticasone Furoate-Vilanterol 100-25 MCG/INH Inhalation Aerosol Powder Breath Activated (BREO ellipta) Inhale by mouth 1 Puff in the morning. Use for worsening/persistent asthma symptoms. (Patient not taking: Reported on 08/17/2023) 28 Each 5 No current facility-administered medications for this visit. Past Medical History: Diagnosis Date ALLERGIC RHINITIS [...] Snoring 02/05/2018 VENTRICULAR SEPTAL DEFECT-almost closed 02/06/2003 Past Surgical History: Procedure Laterality Date CARPAL TUNNEL SURGERY Bilateral 05/2016, and 09/2016 DELIVERY 2006, 2008, 2014 COLONOSCOPY 09/27/2020 COLONOSCOPY, DIAGNOSTIC (RECTUM) 11/24/2021 normal, repeat 5 yrs / COLONOSCOPY FLEXIBLE PROXIMAL DIAGNOSTIC performed by Audrey Rothman MD at ENDOSCOPY [facility] DENTAL SURGERY PROCEDURE NEC 1998 wisdom teeth EGD, FLEXIBLE, DIAGNOSTIC 11/24/2021 normal bx / ESOPHAGOGASTRODUODENOSCOPY (EGD), FLEXIBLE, TRANSORAL, DIAGNOSTIC performed by Audrey Mendieta MD at ENDOSCOPY [facility] INJECT DX/THER SUBSTANCE INTERLAMINAR LUMBAR/SACRAL W IMAGE GUIDE 11/04/2018 INJECTION SPINE LUMBAR OR SACRAL performed by Trey Calle DO at OR [facility] REPAIR OF KNEE CARTILAGE Right 10/2016 Dr. Dey Review of patient's allergies indicates: Allergen Reactions Iodinated Contrast Media hives Family History Problem Relation Age of Onset [...] degeneration Grandmother (Paternal) No Past Hx Son Family Status Relation Status Mo Alive Fa Alive Yulissa Alive Yulissa (Not Specified) MGMA (Not Specified) MGFA (Not Specified) PGMA (Not Specified) Son Alive Social History Socioeconomic History Marital status: Spouse [...] on file Housing Stability: Not on file Review of Systems: As per HPI all other ROS negative. Wt Readings from Last 3 Encounters: 08/27/23 107 kg (236 lb) 08/23/23 108.2 kg (238 lb 9.6 oz) 08/17/23 105.7 kg (233 lb 1.3 oz) Results for orders placed or performed in visit on 08/17/23 TSH WITH FREE T4 IF INDICATED Result Value Ref Range TSH 1.28 0.27 - 4.20 uIU/mL ANEMIA CBC Result Value Ref Range WBC 6.54 4.00 - 10.80 K/uL RBC 4.71 3.85 - 5.15 M/uL HGB 12.3 12.0 - 15.3 g/dL HCT 39.1 36.0 - 45.2 % MCV 83.0 81.5 - 97.5 fL MCH 26.1 27.0 - 34.0 pg MCHC 31.5 32.0 - 36.0 g/dL RDW 13.4 11.5 - 15.5 % PLT 342 140 - 400 K/uL MPV 9.4 6.6 - 11.1 fL nRBCs 0 <=0 /100 WBCs DIFFERENTIAL, AUTOMATED Result Value Ref Range WBC 6.54 4.00 - 10.80 K/uL Neutrophils % 52.7 40.0 - 75.0 % Lymphocytes % 35.9 18.0 - 42.0 % Monocytes % 6.6 1.0 - 11.0 % Eosinophils % 4.0 0.0 - 6.0 % Basophils % 0.5 0.0 - 2.0 % Immature Granulocytes % 0.3 0.0 - 2.0 % Absolute Neutrophils 3.45 1.80 - 7.70 K/uL Absolute Lymphocytes 2.35 1.00 - 4.80 K/ul Absolute Monocytes 0.43 0.00 - 1.10 K/uL Absolute Eosinophils 0.26 0.00 - 0.70 K/uL Absolute Basophils 0.03 0.00 - 0.20 K/uL Absolute Immature Granulocytes 0.02 0.00 - 0.20 K/uL *Note: Due to a large number of results and/or encounters for the requested time period, some results have not been displayed. A complete set of results can be found in Results Review. OBJECTIVE: Physical Exam: BP 126/80 | Pulse 87 | Temp 37.3 C (99.1 F) (Tympanic) | Resp 16 | Wt 107 kg (236 lb) | BMI 34.83 kg/m | BSA 2.28 m General: alert, healthy, and no distress Heart: regular rate & rhythm, no murmur, and no gallops Lungs: lungs clear to auscultation Abdomen: abdomen soft, non-tender, normal bowel sounds, and no masses or organomegaly Extremities: no joint deformities, effusion, or inflammation SOB (shortness of breath) (Primary) - SLEEP MEDICINE REFERRAL OP - SPIROMETRY B/A BRONCHODILATOR; Future; Expected date: 08/27/2023 - Albuterol Sulfate (Proventil) (2.5 MG/3ML) 0.083% inhalation solution 2.5 mg - CT CHEST WO CONTRAST - ECHO, STRESS (EXERCISE) W/ PHYSICIAN; Future; Expected date: 08/27/2023 Chronic fatigue - SLEEP MEDICINE REFERRAL OP - ECHO, STRESS (EXERCISE) W/ PHYSICIAN; Future; Expected date: 08/27/2023 LUQ pain - US ABDOMEN LIMITED; Future; Expected date: 08/28/2023 Mild persistent asthma without complication - SPIROMETRY B/A BRONCHODILATOR; Future; Expected date: 08/27/2023 - Albuterol Sulfate (Proventil) (2.5 MG/3ML) 0.083% inhalation solution 2.5 mg - CT CHEST WO CONTRAST Chest pain, unspecified type - ECHO, STRESS (EXERCISE) W/ PHYSICIAN; Future; Expected date: 08/27/2023 June Colvin DO documented in this encounter Plan of Treatment Upcoming Encounters Date Type Department Care Team (Latest Contact Info) Description 09/03/2023 7:45 AM EDT Imaging Radiology [facility] 1st Floor, [place] [address] [facility] [place] [address] 09/03/2023 8:15 AM EDT Imaging Radiology [facility] [address] [facility] [place] [address] 09/20/2023 3:30 PM EDT Office Visit Gynecology/Obsteti cs [facility] [place] [address] [place] [address] [place] [phone] Parth Sarabia MD [address] [place] [address] 09/28/2023 7:30 AM EDT Hospital Encounter OR [facility], Operating Room, [facility] 1st Floor [address] [place] [address] Parth Sarabia MD [address] [place] [address] 09/28/2023 7:30 AM EDT - 09/28/2023 9:50 AM EDT Surgery OR [facility], Operating Room, [facility] 1st Floor [address] [place] [address] Parth Sarabia MD [address] [place] [address] LAPAROSCOPIC HYSTERECTOMY REMOVAL TUBES AND/OR OVARIES FOR UTERUS 250GM OR LESS 10/16/2023 1:30 PM EDT PulmDiagnostic Pulmonary Function Lab, [facility] [address] [facility] [place] [address] [address], [address] [place] [address] 11/22/2023 1:00 PM EDT Imaging Cardiac Studies, [facility] [address] [facility] [place] [address] 01/18/2024 7:00 AM EDT Office Visit Sleep Disorders Ctr [facility] [address] [facility] [place] [address] Evi Bartholomew CRNP [address] [place] [address] Scheduled Orders Name Type Priority Associated Diagnoses Orde r Schedule US ABDOMEN LIMITED Medical Imaging Routine LUQ pain Expected: 08/28/2023 (Approximate), Expires: 09/25/2024 SPIROMETRY B/A BRONCHODILATOR Procedures Routine SOB (shortness of breath) Mild persistent asthma without complication Expected: 08/27/2023 (Approximate), Expires: 09/25/2024 CT CHEST WO CONTRAST Medical Imaging Routine SOB (shortness of breath) Mild persistent asthma without complication Ordered: 08/27/2023 ECHO, STRESS (EXERCISE) W/ PHYSICIAN Echocardiology Routine SOB (shortness of breath) Chronic fatigue Chest pain, unspecified type Expected: 08/27/2023, Expires: 09/25/2024 Scheduled Procedures Name Priority Associated Diagnoses Date/Ti me LAPAROSCOPIC HYSTERECTOMY REMOVAL TUBES AND/OR OVARIES FOR UTERUS 250GM OR LESS Abnormal uterine bleeding (AUB) Adenomyosis Pelvic pain in female 09/28/2023 7:30 AM EDT COLONOSCOPY FLEXIBLE PROXIMAL DIAGNOSTIC Recall Screening for colon cancer Scheduled Referrals Name Type Priority Associated Diagnoses Orde r Schedule SLEEP MEDICINE REFERRAL OP Referral Within 10 days (routine) SOB (shortness of breath) Chronic fatigue Ordered: 08/27/2023 Health Maintenance Due Date Last Done Comments HPV/Co-Test 02/25/2008 Lipid Panel 10/19/2010 10/19/2005 COVID-19 Vaccine (3 - 2022- season) 2023 [...] Additional history exists Hepatitis B Completed 04/12/2023, 11/2022, 10/11/2022 GARDASIL-HPV IMMUNIZATION SERIES Aged Out No longer eligible based on patient's age to complete this topic MENINGOCOCCAL (MENACTRA/MENVEO) Aged Out No longer eligible based on patient's age to complete this topic documented as of this encounter Medical Devices Not on filedocumented as of this encounter Visit Diagnoses Diagnosis SOB (shortness of breath)- Primary Shortness of breath Chronic fatigue Other malaise and fatigue LUQ pain Abdominal pain, left upper quadrant Mild persistent asthma without complication Unspecified asthma Chest pain, unspecified type Abnormal uterine bleeding (AUB) Adenomyosis Endometriosis of uterus Pelvic pain in female Unspecified symptom associated with female genital organs documented in this encounter Care Teams Laborer Cheesemaking Relationship Specialty Start Date End Date Chaya Thao DO [address] [place] [address] PCP - General Family Medicine 03/03/16 documented as of this encounter"
--- OUTSIDE RECORDS SUMMARY | 2023-09-16 13:21 | External Medical Summary ---
Author Name Unknown Address Unknown Organization [id number] [place] [address] [facility] [address] Laboratory Report Ordering Provider Test Date Status AJITH BUTLERR 08/27/2023 08:37:41 Final Observation Date Value Abnormality Reference (Units ) Status Triglyceride 08/27/2023 08:37:41 225 Above high normal <=174 (mg/dL) Final Triglyceride Reference Range s (mg/dL):
<150 Acceptable
150-174 Borderline high
175-499 High
>=500 Very high Cholesterol 08/27/2023 08:37:41 196 <200 (mg /dL) Final Total Cholesterol Reference Ranges (mg/dL):
<200 Desirable
200-239 Borderline high
>=240 High HDL 08/27/2023 08:37:41 37 Below low normal >49 (mg/dL) Final HDL Cholesterol Reference Ra nges (mg/dL):
>=60 High (Desirable)
<50 Low (Undesirable) For Females
<40 Low (Undesirable) For Males NON-HDL CHOLESTEROL 08/27/2023 08:37:41 159 <=159 (mg/dL) Final Non-HDL Cholesterol Referenc e Range (mg/dL):
<100 Target level for high risk ASCVD patient
<130 Optimal for general population
130-159 Near optimal for general population
160-189 Borderline High
190-219 High
>=220 Very High LDL, (calculated) 08/27/2023 08:37:41 114 <= 129 (mg/dL) Final LDL Cholesterol Reference Ra nges (mg/dL):
<70 Target level for high risk ASCVD patient
<100 Optimal for general population
100-129 Near optimal for general population
130-159 Borderline high
160-189 High
>=190 Very high Performing Location [facility] [place] [address] [facility] [address]
--- OUTSIDE RECORDS SUMMARY | 2023-09-16 13:21 | External Medical Summary | Summary of Care ---
Author Name Unknown Organization [facility] Address [address] [place] [address] Phone [phone] Care Team Providers Care Log Chain Worker Name Role Phone HectorChaya loredo Claude OGDEN Primary Care Provider [phone] Reason for Visit * Reason Onset Date Comments Mycode Lab Reorder 09/11/2023 Encounter Details Date Type Department Care Team (Late st Contact Info) Description 09/11/2023 Orders Only Outcomes Research Department [address] [place] [address] Elisabet Duval CHRA MyCode Research Other*[id number]* Allergies Active Allergy Reactions Criticality Noted Date Comments Iodinated Contrast Media 03/23/2010 hives documented as of this encounter (statuses as of 09/11/2023) Medications Medication Sig Dispensed Refills Start Date [...] as of this encounter (statuses as of 09/11/2023) Active Problems Problem Noted Date Diagnosed Date [...] as of this encounter (statuses as of 09/11/2023) Resolved Problems Problem Noted Date Diagnosed Date [...] PM Elderly multigravida 12/05/2013 015 Overview: Desires [id number]; offer MSAFP after 15wks Patient received flu vaccine. 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 01/17/2009 12/05/2013 Overview: +RV culture; IV Abx in labor Ovarian cyst 07/05/2008 12/05/2013 Overview: L ovarian cyst on early sono -- repeat scan early August-[facility] for 08/03 Nausea with vomiting 06/29/2008 014 Overview: Diet discussed. Rx Phenergan 25 mg tabs and Zofran 8 mg ODT. Poor growth, affecting management of mother, antepartum condition or complication 09/17/2006 02/06/2008 Allergic conjunctivitis 03/16/2005 12/0 05/2015 Intermittent asthma with rel iever use up [...] as of this encounter (statuses as of 09/11/2023) Immunizations Name Administration Dates Next Due COVID-19 mRNA, LNP-s, No Pre serve, 2-Dose Series (Moderna) 07/03/2020,05/29/2020 H1N1 2009 Influenza, IM 03/15/2009 Hepatitis B, 20+ yrs 04/12/2023,11/10/2022,10/11 Pneumococcal Conjugate Vacci ne, 20-valent ([id number]) 10/11/2022 Pneumococcal Polysaccharide PPV23 (Pneumovax) 05/31/2011,2011(Deferred: Patient [...] as of this encounter Progress Notes * Elisabet Duval CHRA - 09/11/2023 2:23 PM EDT MyCode lab reordered. documented in this encounter Plan of Treatment Upcoming Encounters Date Type Department Care Team (Latest Contact Info) Description 09/20/2023 3:30 PM EDT Office Visit Gynecology/Obsteti cs [place] [address] [place] [phone] Parth Sarabia [facility] [address] [facility] [place] [id number] 09/25/2023 11:00 AM EDT Office Visit Orthopaedics [facility] [address] [place] [address] SharerLibia PA-C [address] [facility] [place] [address] 09/28/2023 7:30 AM EDT Hospital Encounter OR [facility], Operating Room, [facility] 1st Floor [address] [place] [address] Parth Sarabia MD [address] [place] [address] 09/28/2023 7:30 AM EDT - 09/28/2023 9:50 AM EDT Surgery OR [facility], Operating Room, [facility] 1st Floor [address] [place] [address] Parth Sarabia MD [address] [place] [address] LAPAROSCOPIC HYSTERECTOMY REMOVAL TUBES AND/OR OVARIES FOR UTERUS 250GM OR LESS 10/09/2023 1:00 PM EDT Office Visit Sleep Disorders Ctr [facility] [address] [facility] [place] [address] Evi Bartholomew CRNP [address] [place] [address] 10/16/2023 1:30 PM EDT PulmDiagnostic Pulmonary Function Lab, [facility] [address] [place] [address] [address], [address] [place] [address] 11/22/2023 1:00 PM EDT Imaging Cardiac Studies, [facility] [address] [facility] [place] [address] Scheduled Orders Name Type Priority Associated Diagnoses Orde r Schedule MYCODE SUBSEQUENT ADULT Lab Routine MyCode Research Other*[id number] Every 6 Months for 2 Occurrences starting 09/11/2023 until 09/30/2024 Scheduled Procedures Name Priority Associated Diagnoses Date/Ti me LAPAROSCOPIC HYSTERECTOMY REMOVAL TUBES AND/OR OVARIES FOR UTERUS 250GM OR LESS Abnormal uterine bleeding (AUB) Adenomyosis Pelvic pain in female 09/28/2023 7:30 AM EDT COLONOSCOPY FLEXIBLE PROXIMAL DIAGNOSTIC Recall Screening for colon cancer Health Maintenance Due Date Last Done Comments HPV/Co-Test 02/25/2008 COVID-19 Vaccine (3 - 2022- season) 2023 07/03/2020, 05/29/2020 Cologuard 2023 Fecal Occult Blood Test 2023 Sigmoidoscopy 2023 Mammogram 03/26/2024 03/26/2023, 03/07, 04/12/2021, Additional history exists DTaP,Tdap,and Td Vaccines (3 - Td or Tdap) 07/24/2024 07/24/2014, 02/12/2009 TSH 08/16/2024 08/17/2023, 05/07, 03/19/2023, Additional history exists Cervical Cancer Screening 01/10/2025 Pap Smear 01/10/2025 01/10/2022, 07/06, 12/19/2015, Additional history exists Diabetes Screening 03/19/2026 03/19/2023, 0 12/01/2022, 08/30/2022, Additional history exists Colonoscopy 11/24/2026 11/24/2021, 11/05, 09/27/2020, Additional history exists Colorectal Cancer Screening 11/24/2026 Lipid Panel 08/26/2028 08/27/2023, 10/19/2005 RETIRED - COLONOSCOPY-ANNUAL AGES 18-100 Discontinued 11/24/2021, 11/24/2021, 09/27/2020, Additional history exists RETIRED - COLONOSCOPY-EVERY 5 YRS AGES 18-100 Discontinued 11/24/2021, 11/24/2021, 09/27/2020, Additional [...] as of this encounter Visit Diagnoses Diagnosis MyCode Research Other*[id number]- Primary Abnormal uterine bleeding (AUB) Adenomyosis Endometriosis of uterus Pelvic pain in female Unspecified symptom associated with female genital organs documented in this encounter Care Teams Log Chain Worker Relationship Specialty Start Date End Date Chaya Thao DO [address] [facility] [place] [address] PCP - General Family Medicine 03/03/16 documented as of this encounter
--- OUTSIDE RECORDS SUMMARY | 2023-09-16 13:21 | External Medical Summary ---
Author Name Unknown Address Unknown Organization K01[place] [place] [address] [place] [address] Laboratory Report Ordering Provider Test Date Status SANJU POSADAS 08/27/2023 08:37:41 Final Observation Date Value Abnormality Reference (Units ) Status MYCODE SPECIMEN-SST 08/27/2023 08:37:41 Freezing of extracted DNA, whole blood and/or serum. Final Performing Location LABORATORY C - [address] [place] [address]
--- NOTE | 2023-09-16 13:22 | Emergency Department Note ---
Impression & Plan Elevated troponin, Grief, Acute dyspnea, Heart palpitations ED Provider Note NAME: LEIGH ANN JOHNSON AGE: 43 SEX: F : 1980 ARRIVES VIA: Ambulance INFORMANT: Patient, ED PROVIDER(S): Williams Mina MD CHIEF COMPLAINT: Weakness, fecal fatigue, shortness of breath, abdominal cramping MEDICAL DECISION MAKING: Patient presented due to concern for shortness of breath weakness and fatigue in the setting of discovering that her daughter had committed suicide. Blood work was obtained along with chest x-ray EKG troponin. Patient was offered fluids and medications which she declined at this time. Patient's blood work showed white count that was normal with normal H&H and platelet count kidney function was unremarkable. Troponin was 20.4 so repeat was ordered. EKG reviewed and no signs of any significant changes. Patient did request IV fluids as well as NSAIDs for cramping and the patient was ordered fluids and Toradol. ED case management did give the patient resources with regards to grief Repeat troponin was 27. Given this with the patient's recent tragic event with regard to her daughter did not think it is unreasonable for monitoring trending the troponins and an echocardiogram. Takotsubo in the differential. It is with the on-call hospitalist Dr. Parr and the patient was admitted to the medicine service. Prior to the patient being assigned to bed the patient had complained of chest pain repeat EKG was performed which did not show any acute ST elevations. Discussion w/ other healthcare providers: Dr. Parr inpatient medicine service ED case management Prior /Outside records reviewed: None Differential diagnosis: Reactive airway disease, pneumonia, pneumothorax, COPD, CHF, ACS, pulmonary embolism, musculoskeletal, GERD as well as other pathologies were considered. Diagnostics, as interpreted by me: ECG: Normal sinus rhythm, rate of 80 prolonged QT, normal axis no ST elevations, T wave inversion in V2. No significant change from comparison EKG completed August 23, 2023 w/ exception of longer QTc. Repeat EKG interpreted myself Normal sinus rhythm rate of 89, normal TX and QRS prolonged QTc, normal axis no ST elevations. Cardiac monitoring: An order was placed for continuous cardiac monitoring. The monitor shows a rate of 85 with sinus rhythm. Patient was placed on pulse oximetry Medical decision rules: None Imaging studies: I informally interpreted the patient's chest x-ray without obvious pneumonia or pneumothorax with formal report to follow. HPI: Patient presents from home after recently discovering that her daughter had hung herself and . Patient states that she felt short of breath weak and had lower back discomfort and abdominal cramping. The patient had nausea but without vomiting. Patient currently denies wanting to harm herself. Patient states that some of her symptoms are still present. She does have a known history of asthma but denies any wheezing. Patient had had some shortness of breath last couple of months did have a recent ED visit which reportedly was normal at that time. Patient does feel weak and exhausted. Patient denies any recent surgeries procedures or hospitalizations no recent prolonged car plane travel. The patient is pending hysterectomy due to heavy cramping bleeding and anemia. Patient currently does not feel anxious and does not want anything to eat or drink. Patient states that this situation has not quite sunken yet. PAST MEDICAL HISTORY: See Below PAST SURGICAL HISTORY: See Below SOCIAL HISTORY: See Below HOME MEDICATIONS: See Below ALLERGIES: See Below VITALS: See Below PHYSICAL EXAMINATION: GENERAL: NAD, non-toxic. Fatigable in appearance. EYE EXAM: Normal conjunctiva. PERRL, no anisocoria and EOM's grossly intact w/o pain. OROPHARYNX: Moist mucus membranes, grossly normal dentition. NECK: Trachea midline, no stridor. Supple, no nuchal rigidity, no adenopathy, non-tender. No signs of meningismus. FROM of the neck with good chin to chest and neck extension. LUNGS: Clear to auscultation. Normal chest wall mechanics. HEART: NSR, no MRG. ABDOMEN: Abdomen soft, non-tender, no masses, no rebound or guarding. BACK: No CVA TTP. SKIN: No rashes and no bruising. UPPER EXTREMITIES: Upper extremities are grossly normal. LOWER EXTREMITIES: Grossly normal, no edema. Negative Homans' sign bilaterally. NEURO EXAM: A&O x3, cranial nerves II-XII grossly intact, normal speech, moves all 4 extremities. Psych: Flat affect, negative SI. Past Med/Surg History Medical History (Updated 09/16/23 @ 19:00 by Williams Mina MD) Ventricular septal defect Surgical History H/O section H/O tubal ligation Family History Other Obstructive sleep apnea Social History Smoking Status: Never smoker Hx Alcohol Use: Yes Preferred Language: Sami marital status: Current Living Situation: Family current occupational status: employed Feels Safe at Home: Yes Allergies Allergies Allergy/AdvReac Type Severity Reaction Status Date / Time Iodinated Contrast Media Allergy Severe HIVES, SOB Verified 09/16/23 16:53 pollen extracts Allergy Mild ITCHING, Verified 09/16/23 16:53 SNEEZING Home Meds Home Medications Medication Instructions Recorded Confirmed albuterol sulfate 90 mcg/actuation 2 puff inhalation Q6H PRN SOB #18 01/31/09/16/23 aerosol inhaler grams fluoxetine 40 mg capsule (Prozac) 40 mg PO QAM 09/06/20 09/16/23 levothyroxine 150 mcg tablet 150 mcg PO QAM 09/06/20 09/16/23 (Levoxyl) montelukast 10 mg tablet 10 mg PO QPM 09/06/20 09/16/23 cholecalciferol (vitamin D3) 10 10 mcg PO DAILY 08/23/23 09/16/23 mcg (400 unit) capsule (Vitamin D3) ferrous sulfate 325 mg (65 mg 325 mg PO DAILY 08/23/23 09/16/23 iron) tablet (Iron (ferrous sulfate)) omeprazole 40 mg capsule,delayed 40 mg PO QAM 08/23/23 09/16/23 release armodafinil 250 mg tablet 250 mg PO QAM 09/16/23 09/16/23 Results & Data (ED) Vital Signs Vital Signs - 24 hr 09/16/23 13:18 09/16/23 13:35 09/16/23 14:01 Temperature 36.7 C Temperature Source Oral Pulse Rate 80 90 Pulse Rate [Apical] Respiratory Rate 16 Respiratory Effort / Characteristics Non-Labored Spontaneous Respiratory Depth Normal Respiratory Pattern Blood Pressure 172/94 H Blood Pressure [Left Arm] Blood Pressure Mean 120 Blood Pressure Mean [Left Arm] Blood Pressure Position [Left Arm] Pulse Oximetry 100 Oxygen Delivery Method Room Air Room Air Sepsis Recent Fever Within 48 Hours No Sepsis New/Unexplained Change in Mental Status No Sepsis Action Taken by Nursing No Action Required 09/16/23 14:13 09/16/23 14:18 09/16/23 14:30 Temperature Temperature Source Pulse Rate Pulse Rate [Apical] 86 Respiratory Rate 18 Respiratory Effort / Characteristics Non-Labored Accessory Muscle Use Non-Labored Spontaneous Respiratory Depth Normal Normal Respiratory Pattern Regular Blood Pressure Blood Pressure [Left Arm] 192/97 H Blood Pressure Mean Blood Pressure Mean [Left Arm] 128 Blood Pressure Position [Left Arm] Pulse Oximetry 96 Oxygen Delivery Method Room Air Room Air Room Air Sepsis Recent Fever Within 48 Hours Sepsis New/Unexplained Change in Mental Status Sepsis Action Taken by Nursing 09/16/23 15:05 09/16/23 16:00 09/16/23 18:04 Temperature Temperature Source Pulse Rate 81 Pulse Rate [Apical] 102 H 86 Respiratory Rate 21 18 Respiratory Effort / Characteristics Non-Labored Spontaneous Non-Labored Spontaneous Respiratory Depth Normal Normal Respiratory Pattern Blood Pressure Blood Pressure [Left Arm] 142/99 H 152/77 H Blood Pressure Mean Blood Pressure Mean [Left Arm] 113 102 Blood Pressure Position [Left Arm] Lying Pulse Oximetry 96 99 Oxygen Delivery Method Room Air Room Air Sepsis Recent Fever Within 48 Hours Sepsis New/Unexplained Change in Mental Status Sepsis Action Taken by Nursing 09/16/23 18:40 Temperature Temperature Source Pulse Rate Pulse Rate [Apical] 87 Respiratory Rate 14 Respiratory Effort / Characteristics Non-Labored Spontaneous Respiratory Depth Normal Respiratory Pattern Blood Pressure Blood Pressure [Left Arm] 159/81 H Blood Pressure Mean Blood Pressure Mean [Left Arm] 107 Blood Pressure Position [Left Arm] Lying Pulse Oximetry 99 Oxygen Delivery Method Room Air Sepsis Recent Fever Within 48 Hours Sepsis New/Unexplained Change in Mental Status Sepsis Action Taken by Group Home Medications Current Medication List: was personally reviewed by me Laboratory Data Attestation: I reviewed the patient's lab results. 09/16/23 13:35 09/16/23 14:00 Lab Results 09/16/23 09/16/23 09/16/23 Range/Units 13:35 14:00 15:40 WBC 9.23 (4.8-10.8) K/ul RBC 4.98 (4.20-5.40) M/uL Hgb 12.8 (12.0-16.0) g/dl Hct 39.4 (37.0-47.0) % MCV 79.1 L (80.0-100.0) fL MCH 25.7 (25.0-34.0) pg MCHC 32.5 (32.0-36.0) g/dL RDW Std Deviation 40.1 (36.4-46.3) fL RDW Coeff of Jimenez 13.9 (11.5-14.5) % Plt Count 315 (130-400) K/uL MPV 8.7 L (9.4-12.4) fL Immature Gran % (Auto) 0.4 % Neut % (Auto) 83.3 % Lymph % (Auto) 10.8 % Andrew % (Auto) 4.7 % Eos % (Auto) 0.5 % Baso % (Auto) 0.3 % Neut # (Auto) 7.68 H (1.40-6.50) K/uL Lymph # (Auto) 1.00 L (1.20-3.40) K/uL Andrew # (Auto) 0.43 (0.11-0.59) K/uL Eos # (Auto) 0.05 (0.00-0.50) K/uL Baso # (Auto) 0.03 (0.00-0.20) K/uL Immature Gran # (Auto) 0.04 (0.01-0.20) K/uL Sodium 136 (136-145) mmol/L Potassium 3.5 (3.5-5.1) mmol/L Chloride 103 (98-107) mmol/L Carbon Dioxide 25 (21-32) mmol/L Anion Gap 8 (3-11) BUN 9 (6-23) mg/dl Creatinine 0.62 (0.6-1.2) mg/dl Est Cr Clr Drug Dosing Not Reportable Est GFR ( Amer) 126.2 ml/min Est GFR (Non-Af Amer) 108.9 ml/min BUN/Creatinine Ratio 14.5 (10-20) Glucose 102 H (70-99(Fasting)) mg/dl Calcium 9.1 (8.6-10.3) mg/dl Magnesium 2.0 (1.7-2.4) mg/dl Iron 70 (35-150) mcg/dl TIBC 375 (250-450) mcg/dl Unsaturated IBC 305 (155-355) mcg/dl Transferrin % Sat 19 (15-50) % Ferritin 10.6 (8-388) ng/ml Total Bilirubin 0.5 (0.2-1.0) mg/dl AST 20 (13-39) U/L ALT 21 (7-52) U/L Alkaline Phosphatase 102 (34-104) U/L Troponin I High Sens 20.4 H 27.0 H (0-14) pg/ml Total Protein 7.5 (6.0-8.3) gm/dl Albumin 4.3 (3.4-5.0) gm/dl Globulin 3.2 (2.5-4.0) gm/dl Albumin/Globulin Ratio 1.3 (0.9-2) Vitamin B12 (180-914) pg/ml Folate (>5.38) ng/ml 09/16/23 Range/Units 15:40 WBC (4.8-10.8) K/ul RBC (4.20-5.40) M/uL Hgb (12.0-16.0) g/dl Hct (37.0-47.0) % MCV (80.0-100.0) fL MCH (25.0-34.0) pg MCHC (32.0-36.0) g/dL RDW Std Deviation (36.4-46.3) fL RDW Coeff of Jimenez (11.5-14.5) % Plt Count (130-400) K/uL MPV (9.4-12.4) fL Immature Gran % (Auto) % Neut % (Auto) % Lymph % (Auto) % Andrew % (Auto) % Eos % (Auto) % Baso % (Auto) % Neut # (Auto) (1.40-6.50) K/uL Lymph # (Auto) (1.20-3.40) K/uL Andrew # (Auto) (0.11-0.59) K/uL Eos # (Auto) (0.00-0.50) K/uL Baso # (Auto) (0.00-0.20) K/uL Immature Gran # (Auto) (0.01-0.20) K/uL Sodium (136-145) mmol/L Potassium (3.5-5.1) mmol/L Chloride (98-107) mmol/L Carbon Dioxide (21-32) mmol/L Anion Gap (3-11) BUN (6-23) mg/dl Creatinine (0.6-1.2) mg/dl Est Cr Clr Drug Dosing Est GFR ( Amer) ml/min Est GFR (Non-Af Amer) ml/min BUN/Creatinine Ratio (10-20) Glucose (70-99(Fasting)) mg/dl Calcium (8.6-10.3) mg/dl Magnesium (1.7-2.4) mg/dl Iron (35-150) mcg/dl TIBC (250-450) mcg/dl Unsaturated IBC (155-355) mcg/dl Transferrin % Sat (15-50) % Ferritin (8-388) ng/ml Total Bilirubin (0.2-1.0) mg/dl AST (13-39) U/L ALT (7-52) U/L Alkaline Phosphatase (34-104) U/L Troponin I High Sens 26.6 H (0-14) pg/ml Total Protein (6.0-8.3) gm/dl Albumin (3.4-5.0) gm/dl Globulin (2.5-4.0) gm/dl Albumin/Globulin Ratio (0.9-2) Vitamin B12 243 (180-914) pg/ml Folate 18.91 (>5.38) ng/ml Administered Medications Discontinued Medications Sodium Chloride (Nss) 1,000 mls @ 999 mls/hr IV .Q1H1M ONE Stop: 09/16/23 15:20 Last Infusion: 09/16/23 16:47 Dose: Infused Documented By: [facility] Admin: 09/16/23 14:22 Dose: 999 mls/hr Documented By: Ketorolac Tromethamine (Ketorolac Tromethamine 15 Mg/Ml Vial) 10 mg IV NOW ONE Stop: 09/16/23 14:21 Last Admin: 09/16/23 14:25 Dose: 10 mg Documented By: Imaging Data Radiologist's Impression: Chest X-Ray 09/16/23 13:35 XR chest 1V portable CLINICAL HISTORY: Dyspnea TECHNIQUE: Single frontal radiograph of the chest was obtained. Comparison: Comparison is made to chest radiograph of 08/23/2023 FINDINGS: No lines and tubes are seen. The cardiomediastinal silhouette is normal. The lungs are clear. No evidence of pleural effusion or pneumothorax. IMPRESSION: No acute abnormalities and in particular no radiographic evidence of pneumonia. ACT 112: Negative or not required by law. Electronically signed by: Addi Mcdonald M.D. 09/16/2023 2:51 PM Discharge Plan Visit Data Chief Complaint: Shortness of Breath/Dyspnea Stated Complaint: PANIC ATTACK, HTN, TACHYCARDIA ED Provider: Williams Mina Discharge Problem: Elevated troponin, Grief, Acute dyspnea, Heart palpitations Forms Stand Alone Forms: [facility] Prescriptions Prescriptions: No Action albuterol sulfate 90 mcg/actuation HFA aerosol inhaler 2 puff INH Q6H PRN (Reason: SOB) Qty: 18 fluoxetine [Prozac] 40 mg Capsule 40 mg PO QAM levothyroxine [Levoxyl] 150 mcg tablet 150 mcg PO QAM montelukast 10 mg tablet 10 mg PO QPM armodafinil 250 mg tablet 250 mg PO QAM omeprazole 40 mg capsule,delayed release(DR/EC) 40 mg PO QAM ferrous sulfate [Iron (ferrous sulfate)] 325 mg (65 mg iron) Tablet 325 mg PO DAILY cholecalciferol (vitamin D3) [Vitamin D3] 10 mcg (400 unit) Capsule 10 mcg PO DAILY Referrals Referrals: Chaya Thao DO [Primary Care Provider] -
--- OUTSIDE RECORDS SUMMARY | 2023-09-16 13:22 | External Medical Summary | Summary of Care ---
Author Name Unknown Organization [facility] Address [address] [place] [address] Phone [phone] Care Team Providers Care Research Archaeologist Name Role Phone Chaya Thao DO Primary Care Provider [phone] Reason for Visit * Reason Comments Re-Check Fatigue - worse Encounter Details Date Type Department Care Team (Late st Contact Info) Description 08/23/2023 3:40 PM EDT Office Visit [facility] [address] [place] [id number] Guerda Vásquez CRNP [address] [place] [id number] Shortness of breath*; Mild persistent asthma without complication; JORDAN on CPAP Allergies Active Allergy Reactions Criticality Noted Date Comments Iodinated Contrast Media 03/23/2010 hives documented as of this encounter (statuses as of 08/23/2023) Medications Medication Sig Dispensed Refills Start Date End Date Status Cholecalciferol (VITAMIN D-3) 1000 UNITS Capsule Take 1 Cap by mouth daily. 0 12/22/2015 Active fexofenadine (SAVANA ALLERGY) 180 MG Tablet Take 1 Tab [...] as of this encounter (statuses as of 08/23/2023) Active Problems Problem Noted Date Diagnosed Date [...] as of this encounter (statuses as of 08/23/2023) Resolved Problems Problem Noted Date Diagnosed Date [...] PM Elderly multigravida 12/05/2013 015 Overview: Desires [id number]; offer MSAFP after 15wks Patient received flu vaccine. 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 01/17/2009 12/05/2013 Overview: +RV culture; IV Abx in labor Ovarian cyst 07/05/2008 12/05/2013 Overview: L ovarian cyst on early sono -- repeat scan early August-[facility] for 08/03 Nausea with vomiting 06/29/2008 014 [...] as of this encounter (statuses as of 08/23/2023) Immunizations Name Administration Dates Next Due COVID-19 mRNA, LNP-s, No Pre serve, 2-Dose Series (Moderna) 07/03/2020,05/29/2020 H1N1 2009 Influenza, IM 03/15/2009 Hepatitis B, 20+ yrs 04/12/2023,11/10/2022,10/11 Pneumococcal Conjugate Vacci ne, 20-valent ([id number]) 10/11/2022 Pneumococcal Polysaccharide PPV23 (Pneumovax) 05/31/2011,2011(Deferred: Patient [...] Sign Reading Time Taken Comments Blood Pressure 114/74 08/23/2023 3:38 PM EDT Pulse 88 08/23/2023 3:38 PM EDT Temperature 37.1 C (98.7 F) 08/23/2023 3:38 PM ED T Respiratory Rate 16 08/23/2023 3:38 PM EDT Oxygen Saturation - - Inhaled Oxygen Concentration - - Weight 108.2 kg (238 lb 9.6 oz) 08/23/2023 3:38 PM EDT Height - - Body Mass Index 35.22 08/17/2023 11:26 AM EDT documented in this encounter Progress Notes * Guerda Vásquez CRNP - 08/23/2023 3:37 PM EDT Follow up Family Medicine Visit CC: "I can not catch my breath. History of Present Illness: Lenka Meyer is a 43 year old female presenting with complaints of increased shortness of breath since last Sunday. Seen on 08/17/2023. Blood count is normal and tsh normal. -COUGH -WHEEZING +CHEST TIGHTNESS -chest pain +INACTIVE Not taking savana. Using albuterol but does She is not taking breo. Social History Socioeconomic History Marital status: Spouse [...] on file Housing Stability: Not on file PMH: Past Medical History: Diagnosis Date ALLERGIC RHINITIS [...] SURGERY Bilateral 05/2016, and 09/2016 DELIVERY 2006, 2009, 2015 COLONOSCOPY 09/27/2020 COLONOSCOPY, DIAGNOSTIC (RECTUM) 11/24/2021 normal, repeat 5 yrs / COLONOSCOPY FLEXIBLE PROXIMAL DIAGNOSTIC performed by Audrey Rothman MD at ENDOSCOPY [facility] DENTAL SURGERY PROCEDURE NEC 1998 wisdom teeth EGD, FLEXIBLE, DIAGNOSTIC 11/24/2021 normal bx / ESOPHAGOGASTRODUODENOSCOPY (EGD), FLEXIBLE, TRANSORAL, DIAGNOSTIC performed by Audrey Mendieta MD at ENDOSCOPY [facility] INJECT DX/THER SUBSTANCE INTERLAMINAR LUMBAR/SACRAL W IMAGE GUIDE 11/04/2018 INJECTION SPINE LUMBAR OR SACRAL performed by Trey Calle DO at OR [facility] REPAIR OF KNEE CARTILAGE Right 10/2016 Dr. Dey No outpatient medications have been marked as taking for the 08/23/23 encounter (Appointment) with Guerda Vásquez CRNP. Review of patient's allergies indicates: Allergen Reactions Iodinated Contrast Media hives Most Recent Immunizations Administered Date(s) Administered COVID-19 mRNA, LNP-s, No Preserve, 2-Dose Series (Moderna) 07/03/2020 H1N1 2009 Influenza, IM 03/15/2009 Hepatitis B, 20+ yrs 04/12/2023 Pneumococcal Conjugate Vaccine, 20-valent ([id number]) 10/11/2022 Pneumococcal Polysaccharide PPV23 (Pneumovax) 05/31/2011 Seasonal Influenza, PF, 6 M & above, IM , (FluLaval or Fluzone) 03/09/2023 Seasonal Influenza, Quadrivalent, No Preserve, IM 04/06/2016 Seasonal Influenza, Split, IIV3, With Preserve, Inj 01/29/2014 TDAP (age 10 and older)(Boostrix) 07/24/2014 TDAP (age 11 and older)(Adacel) 02/12/2009 Terbutaline Sulfate 12/09/2008 Review of Systems: Review of Systems Constitutional: Negative for fatigue. Respiratory: Positive for chest tightness and shortness of breath. Negative for cough and wheezing. Cardiovascular: Negative for chest pain, palpitations and leg swelling. Gastrointestinal: Positive for abdominal pain. Negative for nausea. Feels luq pain/fullness Musculoskeletal: Positive for back pain. Physical Exam: Filed Vitals: 08/23/23 1538 BP: 114/74 Pulse: 88 Resp: 16 Temp: 37.1 C (98.7 F) TempSrc: Tympanic Weight: 108.2 kg (238 lb 9.6 oz) Physical Exam HENT: Head: Normocephalic. Pulmonary: Effort: Pulmonary effort is normal. Neurological: General: No focal deficit present. Mental Status: She is alert and oriented to person, place, and time. Psychiatric: Mood and Affect: Mood normal. Behavior: Behavior normal. Thought Content: Thought content normal. Judgment: Judgment normal. Assessment and Plan: 1. Shortness of breath Acute sob worse the last week Does not feel like asthma EKG reassuring Recommend ED eval- she is agreeable to drive her self Report called to [facility] ED - EKG; Future - EKG 2. Mild persistent asthma without complication Not on breo Tried albuterol with no improveent 3. JORDAN on CPAP Unable to tolerate cpap Feels exhausted always per her report I have advised the patient to call our office incase of any worsening or new symptoms. I spent a total of 20-29 minutes (exact time 25 mins) on the date of service in preparation, delivery, and documentation of the care provided to Lenka Meyer excluding any time spent in the performance of separately billed services. Brody, MSN, AMILCAR [facility] documented in this encounter Nursing Notes * Felipe Fox, RN - 08/23/2023 3:40 PM EDT Chief Complaint Patient presents with Re-Check Fatigue - worse documented in this encounter Plan of Treatment Upcoming Encounters Date Type Department Care Team (Latest Contact Info) Description 09/20/2023 3:30 PM EDT Office Visit Gynecology/Obstetic s [address] [id number] Parth Sarabia MD [address] [place] [phone] 09/28/2023 7:30 AM EDT Hospital Encounter OR [facility], Operating Room, [facility] 1st Floor [address] [place] [address] Parth Sarabia MD [address] [place] [phone] 09/28/2023 7:30 AM EDT - 09/28/2023 9:50 AM EDT Surgery OR [facility], Operating Room, [facility] 1st Floor [address] [place] [address] Parth Sarabia MD [address] [place] [address] [id number] LAPAROSCOPIC HYSTERECTOMY REMOVAL TUBES AND/OR OVARIES FOR UTERUS 250GM OR LESS Scheduled Orders Name Type Priority Associated Diagnoses Orde r Schedule EKG EKG Routine Shortness of breath Expected: 08/23/2023 (Approximate), Expi res: 09/21/2024 Scheduled Procedures Name Priority Associated Diagnoses Date/Ti me LAPAROSCOPIC HYSTERECTOMY REMOVAL TUBES AND/OR OVARIES FOR UTERUS 250GM OR LESS Abnormal uterine bleeding (AUB) Adenomyosis Pelvic pain in female 09/28/2023 7:30 AM EDT COLONOSCOPY FLEXIBLE PROXIMAL DIAGNOSTIC Recall Screening for colon cancer Health Maintenance Due Date Last Done Comments HPV/Co-Test 02/25/2008 Lipid Panel 10/19/2010 10/19/2005 COVID-19 Vaccine (3 - season) 2023 07/03/2020, 05/29/2020 Mammogram 03/26/2024 03/26/2023, [...] as of this encounter Visit Diagnoses Diagnosis Shortness of breath- Primary Mild persistent asthma without complication Unspecified asthma JORDAN on CPAP Obstructive sleep apnea (adult) (pediatric) Abnormal uterine bleeding (AUB) Adenomyosis Endometriosis of uterus Pelvic pain in female Unspecified symptom associated with female genital organs documented in this encounter Care Teams Research Archaeologist Relationship Specialty Start Date End Date Chaya Thao DO [address] [facility] [place] [id number] PCP - General Family Medicine 03/03/16 documented as of this encounter
[2023-09-16] MEDS: SODIUM CHLORIDE 0.9% 1,000 ML IV ONE (14:22)
[2023-09-16] MEDS: KETOROLAC TROMETHAMINE 15 MG/ML VIAL IV ONE (14:25)
[2023-09-16 14:34] LABS: Basophils # (auto) 0.03 K/uL (0.00-0.20); Basophils % (auto) 0.3 %; Eosinophils # (auto) 0.05 K/uL (0.00-0.50); Eosinophils % (auto) 0.5 %; Hematocrit (blood only) 39.4 % (37.0-47.0); Hemoglobin 12.8 g/dl (12.0-16.0); Immature Granulocytes # (auto) 0.04 K/uL (0.01-0.20); Immature Granulocytes % (auto) 0.4 %; Lymphocytes % (auto) 10.8 %; Mean Corpuscular Hemoglobin 25.7 pg (25.0-34.0); Mean Corpuscular Hgb Conc 32.5 g/dL (32.0-36.0); Mean Corpuscular Volume 79.1 fL (80.0-100.0); Mean Platelet Volume 8.7 fL (9.4-12.4); Monocytes # (auto) 0.43 K/uL (0.11-0.59); Monocytes % (auto) 4.7 %; Neutrophils # (auto) 7.68 K/uL (1.40-6.50); Neutrophils % (auto) 83.3 %; Platelet Count 315 K/uL (130-400); RDW Coefficient of Variation 13.9 % (11.5-14.5); RDW Standard Deviation 40.1 fL (36.4-46.3); Red Blood Count 4.98 M/uL (4.20-5.40); White Blood Count 9.23 K/ul (4.8-10.8)
[2023-09-16 14:36] LABS: Alanine Aminotransferase 21 U/L (7-52); Albumin Globulin Ratio 1.3 (0.9-2); Albumin Level 4.3 gm/dl (3.4-5.0); Alkaline Phosphatase 102 U/L (34-104); Anion Gap 8 (3-11); Aspartate Aminotransferase 20 U/L (13-39); BUN Creatinine Ratio 14.5 (10-20); Bilirubin,Total 0.5 mg/dl (0.2-1.0); Blood Urea Nitrogen 9 mg/dl (6-23); Calcium 9.1 mg/dl (8.6-10.3); Carbon Dioxide 25 mmol/L (21-32); Chloride 103 mmol/L (98-107); Est GFR (African American) 126.2 ml/min; Est GFR (Non-African American) 108.9 ml/min; Globulin 3.2 gm/dl (2.5-4.0); Glucose 102 mg/dl (70-99(Fasting)); Potassium 3.5 mmol/L (3.5-5.1); Sodium 136 mmol/L (136-145); Total Protein 7.5 gm/dl (6.0-8.3)
[2023-09-16 14:42] LABS: Troponin I High Sensitivity 20.4 pg/ml (0-14)
--- NOTE | 2023-09-16 14:52 | XRay Report ---
XR chest 1V portable CLINICAL HISTORY: Dyspnea TECHNIQUE: Single frontal radiograph of the chest was obtained. Comparison: Comparison is made to chest radiograph of 08/23/2023 FINDINGS: No lines and tubes are seen. The cardiomediastinal silhouette is normal. The lungs are clear. No evid ence of pleural effusion or pneumothorax. IMPRESSION: No acute abnormalities and in particular no radiographic evidence of pneumonia. ACT 112: Negative or not required by law. Electronically signed by: Addi Mcdonald M.D. 09/16/2023 2:51 PM
--- NOTE | 2023-09-16 17:33 | History & Physical Report ---
Date of Service September 16, 2023 Assessment & Plan (1) Palpitation: (2) Shortness of breath: Plan Ms Lenka Meyre is a 43-year-old female with a past medical history of depression, hypothyroidism, AUB, iron deficiency who is admitted for monitoring of SOB and palpitations iso recent traumatic event and elevated troponin. #Shortness of breath #Palpitations No wheezing, less suspicious for asthma; hx of iron deficiency with notable microcytosis--potentially contributing SOB recurring concern; however notable life-changing event likely contributing anxiety v takotsubo Admit tele ECHO ativan prn anxiety Follow up iron studies, b12, folate Behavioral liaison consult to offer resources/support BNP ordered #Abnormal EKG Prolonged QTC 484, LAE known hx JORDAN, not controlled, monitor on tele (risk fx for paf) avoid qtc prolonging medications #Elevated troponin -iso significant stressor no ischemic changes on EKG admit tele trend trop to peak ECHO Consider cards contingent on tele/echo #Iron deficiency #Abnormal uterine bleeding marked by microcytosis follows OP obgyn--planning definitive treatment course Iron labs ordered (intermittent noncompliance with PO iron) #Mild persistent asthma without complication albuterol prn, montelukast #JORDAN Unable to tolerate cpap #Hypothyroidism TSH 1.28 continue synthroid DVT SCDs, ambulation as able Admit med/tele Admission and Anticipated Discharge Date Admission Date: Time spent evaluating patient, direct bedside care, chart review, placing orders, interpretation of diagnostic studies, discussion with consultants, patient, and family members, as well as other required patient management activities is 60 minutes. History of Present Illness Primary Care Provider: Chaya Thao DO Ms Lenka Meyer is a 43-year-old female with a past medical history of depression, hypothyroidism, AUB, iron deficiency who presented to ED due to palpitations and SOB. This morning, patient's discovered daughter committed suicide. Patient withdrawn and reports feeling "numb." Patient reports symptoms of racing heart and dizziness, but denies chest pain, orthopnea, edema. Patient accompanied by parents and friend at bedside. Patient declined further questioning. In the ED, vitals were notable for BP of 150s, HR of 80-90, and O2 sat of high 90s on room air. Imaging revealed normal cardiac silhouette, no congestion EKG ?LAE QTC 484 ED interventions: ketorolac, 1L Patient to be admitted to med/tele for further evaluation and management of palpitations and elevated troponin iso recent traumatic event Allergies Allergy/AdvReac Type Severity Reaction Status Date / Time Iodinated Contrast Media Allergy Severe HIVES, SOB Verified 09/16/23 16:53 pollen extracts Allergy Mild ITCHING, Verified 09/16/23 16:53 SNEEZING Home Medications Medication Instructions Recorded Confirmed Type albuterol sulfate 90 mcg/actuation 2 puff inhalation Q6H PRN SOB #18 01/31/09/16/23 History aerosol inhaler grams fluoxetine 40 mg capsule (Prozac) 40 mg PO QAM 09/06/20 09/16/23 History levothyroxine 150 mcg tablet 150 mcg PO QAM 09/06/20 09/16/23 History (Levoxyl) montelukast 10 mg tablet 10 mg PO QPM 09/06/20 09/16/23 History cholecalciferol (vitamin D3) 10 10 mcg PO DAILY 08/23/23 09/16/23 History mcg (400 unit) capsule (Vitamin D3) ferrous sulfate 325 mg (65 mg 325 mg PO DAILY 08/23/23 09/16/23 History iron) tablet (Iron (ferrous sulfate)) omeprazole 40 mg capsule,delayed 40 mg PO QAM 08/23/23 09/16/23 History release armodafinil 250 mg tablet 250 mg PO QAM 09/16/23 09/16/23 History Past Med/Surg History Medical History (Updated 09/16/23 @ 18:17 by Donna Parr MD) Ventricular septal defect Surgical History H/O section H/O tubal ligation Family History Other Obstructive sleep apnea Social History Smoking Status: Never smoker Hx Alcohol Use: Yes Preferred Language: Greenlandic marital status: Current Living Situation: Family current occupational status: employed Feels Safe at Home: Yes Review of Systems Review of Systems: Constitutional: (-) fever/chills, (-) recent loss of weight, (-) appetite changes, (-) night sweats. Head: (-) headache, (-) dizziness. Eye: (-) blurring of vision, (-) double vision, (-) redness. Ear: (-) hearing loss, (-) discharge, (-) vertigo Nose: (-) discharge, (-) bleeding, (-) congestion, (-) post nasal drip. Throat: (-) sore throat, (-) hoarseness of voice, (-) odynophagia. Cardiovascular: (-) chest pain, (++) palpitations, (-) syncope, (-) orthopnea, (-) PND, (-) leg swelling. Respiratory: (++) shortness of breath, (-) cough, (-) wheezing, (-) hemoptysis. Neuro: (-) weakness in extremities, (-) numbness, (-) tingling, (-) tremor. Gastrointestinal: (-) belly pain, (-) belly distension, (-) nausea, (-) vomiting, (-) diarrhea, (-) constipation, (-) na, (-) hematemesis, (-) hematochezia, (-) bowel incontinence Genitourinary: (-) hematuria, (-) dysuria, (-) polyuria, (-) hesitancy, (-) frequency, (-) urinary incontinence. Musculoskeletal: (-) myalgia, (-) arthralgia. Skin: (-) rashes. Endocrine: (-) heat/cold intolerance. Psychiatry: (-) depression, (-) hallucination. Physical Exam Physical Exam: GENERAL APPEARANCE: AxOx4, flat affect, minimally conversant--however, able to sit up and eat apple sauce HEENT: NC, AT. MMM. EOMI, clear conjunctiva, oropharynx clear. NECK: Supple without lymphadenopathy. No stiffness or restricted ROM. HEART: Normal rate and regular rhythm, normal S1/S1, no m/r/g LUNGS: CTAB, moving air well. No crackles or wheezes are heard. ABDOMEN: Soft, nontender, nondistended with good bowel sounds heard.. EXTREMITIES: Without cyanosis, clubbing or edema. NEUROLOGICAL: Grossly nonfocal. Alert and oriented, moving all 4 extremities. CN not formally tested but appear grossly intact Skin: Warm and dry without any rash. Results & Data Results & Data Vital Signs (Past 12 Hours) Vital Signs Temp Pulse Pulse Resp BP BP Pulse Ox 09/16/23 16:00 86 18 152/77 H 99 09/16/23 15:05 102 H 21 142/99 H 96 09/16/23 14:30 86 18 192/97 H 96 09/16/23 14:18 09/16/23 14:13 09/16/23 14:01 90 09/16/23 13:35 09/16/23 13:18 36.7 C 80 16 172/94 H 100 O2 Del Method 09/16/23 16:00 Room Air 09/16/23 15:05 Room Air 09/16/23 14:30 Room Air 09/16/23 14:18 Room Air 09/16/23 14:13 Room Air 09/16/23 14:01 09/16/23 13:35 Room Air 09/16/23 13:18 Room Air Laboratory Results Short CBC 09/16/23 Range/Units 13:35 WBC 9.23 (4.8-10.8) K/ul Hgb 12.8 (12.0-16.0) g/dl Hct 39.4 (37.0-47.0) % Plt Count 315 (130-400) K/uL BMP 09/16/23 14:00 Sodium 136 Potassium 3.5 Chloride 103 Carbon Dioxide 25 BUN 9 Creatinine 0.62 Glucose 102 H Calcium 9.1 Liver Function 09/16/23 Range/Units 14:00 Total Bilirubin 0.5 (0.2-1.0) mg/dl AST 20 (13-39) U/L ALT 21 (7-52) U/L Alkaline Phosphatase 102 (34-104) U/L Albumin 4.3 (3.4-5.0) gm/dl Diagnostic Findings Narrative & Impression EMR Link EXAM: CT CHEST WO CONTRAST DATE and TIME: 09/03/2023 8:00 am HISTORY CLINICAL INFORMATION: sob TECHNIQUE Modality: CT COMPARISON none FINDINGS THYROID:Within normal limits. THORACIC AORTA: No aneurysm. MAIN PULMONARY ARTERY: Normal sized. HEART: No pericardial effusion. ESOPHAGUS: Within normal limits. MEDIASTINUM AND ROE: Within normal limits. CHEST SOFT TISSUES: Within normal limits. CHEST WALL: Within normal limits. AIRWAYS: Within normal limits LUNGS: Within normal limits UPPER ABDOMEN:Within normal limits. IMPRESSION IMPRESSION No acute finding Medications Administered Home Medications Medication Instructions Recorded Confirmed Last Taken albuterol sulfate 90 mcg/actuation 2 puff inhalation Q6H PRN SOB #18 01/31/19 09/16/23 Unknown aerosol inhaler grams fluoxetine 40 mg capsule (Prozac) 40 mg PO QAM 09/06/20 09/16/23 09/15/23 levothyroxine 150 mcg tablet 150 mcg PO QAM 09/06/20 09/16/23 09/15/23 (Levoxyl) montelukast 10 mg tablet 10 mg PO QPM 09/06/20 09/16/23 08/22/23 20:00 cholecalciferol (vitamin D3) 10 10 mcg PO DAILY 08/23/23 09/16/23 08/23/23 08:00 mcg (400 unit) capsule (Vitamin D3) ferrous sulfate 325 mg (65 mg 325 mg PO DAILY 08/23/23 09/16/23 08/22/23 07:00 iron) tablet (Iron (ferrous sulfate)) omeprazole 40 mg capsule,delayed 40 mg PO QAM 08/23/23 09/16/23 09/15/23 release armodafinil 250 mg tablet 250 mg PO QAM 09/16/23 09/16/23 09/15/23
[2023-09-16 18:07] LABS: Troponin I High Sensitivity 26.6 pg/ml (0-14)
[2023-09-16 18:21] LABS: Ferritin 10.6 ng/ml (8-388)
[2023-09-16 18:26] LABS: Folate (Folic Acid),Ser orPlas 18.91 ng/ml (>5.38)
[2023-09-16] MEDS ORDERED: ALBUTEROL HFA 8 GM INHALER INH PRN (19:47)
[2023-09-16] MEDS: ENOXAPARIN INJ 40 MG/0.4 ML SYR SQ SCH (19:59)
[2023-09-16] MEDS: Patient's HEIGHT &/or WEIGHT Needed SCH (20:03)
[2023-09-16] MEDS: LORazepam 0.5 MG TAB PO PRN (20:08)
[2023-09-16] MEDS: ACETAMINOPHEN 1,000 MG/100 ML VIAL IV STA (20:53)
[2023-09-16] MEDS: PROMETHAZINE HCL 12.5 MG in SODIUM CHLORIDE 0.9% 50 ML IV STA (20:53)
[2023-09-16] MEDS: MONTELUKAST SODIUM 10 MG TABLET PO SCH (20:54)
[2023-09-17 02:43] LABS: BUN Creatinine Ratio 11.5 (10-20); Calcium 8.8 mg/dl (8.6-10.3); Creatinine Clr Calc Pharmacy 145.7 ml/min; Est GFR (African American) 126.9 ml/min; Est GFR (Non-African American) 109.5 ml/min; Phosphorus 3.1 mg/dl (2.5-4.9); Potassium 3.3 mmol/L (3.5-5.1)
[2023-09-17 02:53] LABS: Hematocrit (blood only) 35.3 % (37.0-47.0); Hemoglobin 11.7 g/dl (12.0-16.0); Mean Corpuscular Hgb Conc 33.1 g/dL (32.0-36.0); Mean Corpuscular Volume 78.4 fL (80.0-100.0); Mean Platelet Volume 8.5 fL (9.4-12.4); Platelet Count 287 K/uL (130-400); RDW Coefficient of Variation 14.2 % (11.5-14.5); RDW Standard Deviation 40.6 fL (36.4-46.3); White Blood Count 6.98 K/ul (4.8-10.8)
[2023-09-17] MEDS: LEVOTHYROXINE SODIUM 150 MCG TABLET PO SCH (05:53)
--- NOTE | 2023-09-17 08:27 | Electrocardiogram Report ---
Test Reason : Blood Pressure : / mmHG Vent. Rate : 080 BPM Atrial Rate : 080 BPM P-R Int : 118 ms QRS Dur : 084 ms QT Int : 400 ms P-R-T Axes : 061 013 042 degrees QTc Int : 462 ms Normal sinus rhythm Possible Left atrial enlargement Abnormal ECG When compared with ECG of 23-AUG-2023 18:35, No significant change was found Confirmed by Ar Varner ([id number]) on 09/17/2023 8:27:21 AM Referred By: Chaya Thao Confirmed By:Jordin Varner
[2023-09-17] MEDS: FLUoxetine HCL 20 MG CAP PO SCH (08:34)
[2023-09-17] MEDS: PANTOprazole 40 MG TAB PO SCH (08:34)
[2023-09-17] MEDS: POTASSIUM CHLORIDE CRTAB 20 MEQ TABCR PO STA (08:34)
[2023-09-17] MEDS: CHOLECALCIFEROL 10 MCG (400 UNITS) TAB PO SCH (08:35)
[2023-09-17] MEDS: FERROUS SULFATE 325 MG TAB PO SCH (08:35)
--- NOTE | 2023-09-17 12:52 | Discharge Summary ---
Date of Service September 17, 2023 Admission HPI Per Admitting Provider Ms Lenka Meyer is a 43-year-old female with a past medical history of depression, hypothyroidism, AUB, iron deficiency who presented to ED due to palpitations and SOB. This morning, patient's discovered daughter committed suicide. Patient withdrawn and reports feeling "numb." Patient reports symptoms of racing heart and dizziness, but denies chest pain, orthopnea, edema. Patient accompanied by parents and friend at bedside. Patient declined further questioning. In the ED, vitals were notable for BP of 150s, HR of 80-90, and O2 sat of high 90s on room air. Imaging revealed normal cardiac silhouette, no congestion EKG ?LAE QTC 484 ED interventions: ketorolac, 1L Patient to be admitted to med/tele for further evaluation and management of palpitations and elevated troponin iso recent traumatic event Admission Exam Per Admitting Provider GENERAL APPEARANCE: AxOx4, flat affect, minimally conversant--however, able to sit up and eat apple sauce HEENT: NC, AT. MMM. EOMI, clear conjunctiva, oropharynx clear. NECK: Supple without lymphadenopathy. No stiffness or restricted ROM. HEART: Normal rate and regular rhythm, normal S1/S1, no m/r/g LUNGS: CTAB, moving air well. No crackles or wheezes are heard. ABDOMEN: Soft, nontender, nondistended with good bowel sounds heard.. EXTREMITIES: Without cyanosis, clubbing or edema. NEUROLOGICAL: Grossly nonfocal. Alert and oriented, moving all 4 extremities. CN not formally tested but appear grossly intact Skin: Warm and dry without any rash. Principal Diagnosis Palpitations Elevated troponin Grief Discharge Exam Constitutional + well hydrated; no acute distress Eyes PERRL, conjunctivae normal, anicteric sclerae ENMT external ear and nose normal, oropharynx normal Respiratory normal respiratory effort, lungs clear to auscultation Cardiovascular Rate/Rhythm: regular rate and regular rhythm Heart Sounds: no murmur Gastrointestinal (Abdomen) normal bowel sounds, soft, nontender, no hepatosplenomegaly Musculoskeletal No pedal edema Neurologic PERRL, EOMI, accommodation nl, no face palsy, no dysarthria Psychiatric Alert and oriented to person, place and time. Flat affect Discharge Data Allergies Allergy/AdvReac Type Severity Reaction Status Date / Time Iodinated Contrast Media Allergy Severe HIVES, SOB Verified 09/16/23 16:53 pollen extracts Allergy Mild ITCHING, Verified 09/16/23 16:53 SNEEZING Consultations 09/16/23 16:44 ED Decision to Admit Stat 09/16/23 17:51 Consult Behavioral Health Liaison Routine Hospital Course (1) Palpitation: (2) Shortness of breath: Plan Ms Lenka Meyer is a 43-year-old female with a past medical history of depression, hypothyroidism, AUB, iron deficiency who is admitted for monitoring of SOB and palpitations in the setting of bereavement. #Shortness of breath #Palpitations #Elevated troponin #Grief CXR did not show any acute abnormalities Trop mildly elevated 20-26-11 EKG noted normal sinus rhythm, prolonged QT and no ST-T changes Echocardiogram noted mild conc LVH, EF 62%, no significant valvular disease Elevated trop likely demand ischemia in the setting of major life event. However, no significant abnormality on Echo. Provided counseling to patient and parents at bedside Patient to follow up with PCP Discussed with Psych liason who consulted Pastoral services for counselling. RN to get CM to provide resources #Iron deficiency #Abnormal uterine bleeding Marked by microcytosis follows OP obgyn--planning definitive treatment course (intermittent noncompliance with PO iron) #Mild persistent asthma without complication albuterol prn, montelukast #JORDAN Unable to tolerate cpap #Hypothyroidism TSH 1.28 Continue synthroid Total Time Total Time Spent Total Time Spent (In Minutes): 40 Total Time Includes: Examination of the Patient, Discharge Planning, Medication Reconciliation and Communication With Other Providers Discharge Plan Discharge Items Patient Disposition: Home - Self-Care Reason For Visit: PALPITATIONS Discharge Diagnosis: Palpitations Elevated troponin Grief Activity: Resume your previous activity Non-emergency contact: Primary Care Provider Call non-emergency contact if: you have any medication questions and your symptoms worsen Follow-up/Referrals: Chaya Thao DO [Primary Care Provider] - (Date & Time 09/21/2023 9:00 AM Provider Catracho Brown MD Department Family [facility] ) Diet: Regular Addtl Attending Provider Instructions: Mrs Meyer You were managed in the hospital for the above diagnoses. Your Echocardiogram (ultrasound of your heart) did not show any significant abnormalities. Please ensure follow up with your Family Doctor Pending Studies at Discharge: No Stand-Alone Forms: My [facility], Smoking Cessation Medications and DC Order Prescriptions: Continued albuterol sulfate 90 mcg/actuation HFA aerosol inhaler 2 puff INH Q6H PRN (Reason: SOB) Qty: 18 fluoxetine [Prozac] 40 mg Capsule 80 mg PO QAM levothyroxine [Levoxyl] 150 mcg tablet See Rx Instructions .ROUTE .COMPLEX Rx Instructions: 1 tab 6 days a week and 2 tab 1 day a week montelukast 10 mg tablet 10 mg PO QPM armodafinil 250 mg tablet 250 mg PO QAM omeprazole 40 mg capsule,delayed release(DR/EC) 40 mg PO QAM ferrous sulfate [Iron (ferrous sulfate)] 325 mg (65 mg iron) Tablet 325 mg PO DAILY cholecalciferol (vitamin D3) [Vitamin D3] 10 mcg (400 unit) Capsule 10 mcg PO DAILY No Action dicyclomine 10 mg Capsule 10 mg PO QID PRN (Reason: Abdominal cramps) Discharge Orders: Discharge Order (Routine); Ordered 09/17/23 Ordered By: Talisha Barrios Admission Data Admit Date/Time: 09/16/23 17:50 Attending Provider: Talisha Barrios I. Admit Provider: Donna Parr Primary Care Provider: Chaya Thao Other Providers: Donna Parr Other Interventions: Discharge Summary Assessment (RN) Last Done: 09/17/23 13:05
[2023-09-17] MEDS: DICYCLOMINE HCL 10 MG CAP PO PRN (14:15)
--- NOTE | 2023-09-17 15:10 | Electrocardiogram Report ---
Test Reason : Blood Pressure : / mmHG Vent. Rate : 089 BPM Atrial Rate : 089 BPM P-R Int : 120 ms QRS Dur : 080 ms QT Int : 400 ms P-R-T Axes : 067 023 049 degrees QTc Int : 487 ms Normal sinus rhythm Prolonged QT Abnormal ECG When compared with ECG of 16-SEP-2023 13:44, No significant change was found Confirmed by Ar Varner ([id number]) on 09/17/2023 3:09:56 PM Referred By: Chaya Thao Confirmed By:Jordin Varner
--- NOTE | 2023-09-17 15:11 | Electrocardiogram Report ---
Test Reason : Blood Pressure : / mmHG Vent. Rate : 079 BPM Atrial Rate : 079 BPM P-R Int : 112 ms QRS Dur : 080 ms QT Int : 400 ms P-R-T Axes : -13 010 055 degrees QTc Int : 459 ms Normal sinus rhythm When compared with ECG of 16-SEP-2023 18:23, (unconfirmed) No significant change was found Confirmed by Ar Varner ([id number]) on 09/17/2023 3:11:19 PM Referred By: Chaya Thao Confirmed By:Jordin Varner
== END 2023-09-17 18:42 | disposition home or self-care (01) ==
LOC: 2N 13:18 → ED 13:18 → SUATTDRO 17:50 → 2N 19:30
DX: R00.2 Palpitations; Z91.041 Radiographic dye allergy status; F43.21 Adjustment disorder with depressed mood; Z79.899 Other long term (current) drug therapy; E61.1 Iron deficiency; R94.31 Abnormal electrocardiogram [ECG] [EKG]; G47.33 Obstructive sleep apnea (adult) (pediatric); Z79.890 Hormone replacement therapy; J45.30 Mild persistent asthma, uncomplicated; E03.9 Hypothyroidism, unspecified; Z63.4 Disappearance and death of family member; R06.02 Shortness of breath; R79.89 Other specified abnormal findings of blood chemistry; N93.9 Abnormal uterine and vaginal bleeding, unspecified

== ENCOUNTER 2023-11-02 09:15 | Observation (INO) ==
--- NOTE | 2023-10-03 10:22 | PAT Medication Instructions ---
Medication Instructions Date of Service October 03, 2023 Home Medications Medication Instructions Recorded hydroxyzine HCl 25 mg tablet 25 mg PO TID PRN anxiety #10 tabs 09/17/23 albuterol sulfate 90 mcg/actuation aerosol inhaler 2 puff inhalation Q6H PRN fluoxetine 40 mg capsule (Prozac) 80 mg PO QAM levothyroxine 150 mcg tablet (Levoxyl) 150 - 300 mcg PO UD montelukast 10 mg tablet 10 mg PO QPM cholecalciferol (vitamin D3) 10 mcg (400 unit) capsule (Vitamin D3) 10 mcg PO QAM ferrous sulfate 325 mg (65 mg iron) tablet (Iron (ferrous sulfate)) 325 mg PO QAM omeprazole 40 mg capsule,delayed release 40 mg PO QAM armodafinil 250 mg tablet 250 mg PO QAM dicyclomine 10 mg capsule 10 mg PO QID PRN hydroxyzine HCl 25 mg tablet 25 mg PO TID PRN acetaminophen 500 mg tablet 1,000 mg PO Q6H PRN ibuprofen 800 mg tablet 800 mg PO TID PRN metoprolol tartrate 25 mg tablet 12.5 mg PO QPM oxycodone 5 mg capsule 5 mg PO QID PRN Continue as directed levothyroxine 150 mcg tablet (Levoxyl) 150 - 300 mcg PO UD ASK your surgeon for instructions ibuprofen 800 mg tablet 800 mg PO TID PRN DO NOT take the morning of surgery cholecalciferol (vitamin D3) 10 mcg (400 unit) capsule (Vitamin D3) 10 mcg PO QAM ferrous sulfate 325 mg (65 mg iron) tablet (Iron (ferrous sulfate)) 325 mg PO QAM armodafinil 250 mg tablet 250 mg PO QAM dicyclomine 10 mg capsule 10 mg PO QID PRN Take morning of surgery With a small sip of water, OTHERWISE NOTHING TO EAT OR DRINK AFTER MIDNIGHT: albuterol sulfate 90 mcg/actuation aerosol inhaler 2 puff inhalation Q6H PRN(use if needed; please bring with you to hospital day of surgery if possible) fluoxetine 40 mg capsule (Prozac) 80 mg PO QAM omeprazole 40 mg capsule,delayed release 40 mg PO QAM hydroxyzine HCl 25 mg tablet 25 mg PO TID PRN(if needed) acetaminophen 500 mg tablet 1,000 mg PO Q6H PRN(if needed) oxycodone 5 mg capsule 5 mg PO QID PRN(if needed) Take evening before surgery albuterol sulfate 90 mcg/actuation aerosol inhaler 2 puff inhalation Q6H PRN(if needed) montelukast 10 mg tablet 10 mg PO QPM dicyclomine 10 mg capsule 10 mg PO QID PRN(if needed) hydroxyzine HCl 25 mg tablet 25 mg PO TID PRN(if needed) acetaminophen 500 mg tablet 1,000 mg PO Q6H PRN(if needed) oxycodone 5 mg capsule 5 mg PO QID PRN(if needed) metoprolol tartrate 25 mg tablet 12.5 mg PO QPM Other Notes If you have any questions please call us at [phone] or [phone] or [phone] or [phone]
--- NOTE | 2023-10-09 09:40 | Anesthesiology Consultation ---
Date of Service October 09, 2023 Assessment & Plan (1) Encounter for pre-operative examination: Chart Review Chart Review: Acceptable Risk for Surgery and Patient seen in Pre Admission Testing - Discussed case with Dr Acosta (recent [facility] admission and hx of VSD- no current issues)- patient can proceed as scheduled - Patient is NOT an ideal OPJ candidate (currently 23 hour obs) Per [facility] appt on 10/08/23, no recent illness/disease exposures, illness related symptoms, or recent illness/disease positive tests. Will leave to surgeon's discretion if preop Covid testing needed Patient admitted to [facility] 09/16/23-09/17/23= admitted for palpitations, elevated troponin and grief in the setting of bereavement. Troponins mildly elevated. EKG and ECHO Done. CXR no acute issues. Elevated toponin likely demand ischemia in the setting of major life event. Iron deficiency/AUB- following with [facility] [employer] for definitive treatment. Mild asthma. JORDAN- cannot tolerate CPAP. Hypothyroidism (Per patient at [facility] appt 10/09/23- no palpitations since PA admission- tolerated laparoscopic hysterectomy 09/28/23 without issues) Teaching & Discussion Pre-Anesthesia Teaching/Discussion Notes: Instructed NPO after midnight before surgery,except medications with 15 cc of water. Medication instructions provided according to the [facility] guidelines. History Surgery Operation Date: 11/02/23 09:10 Proposed Procedures p Right Total Knee Arthroplasty - Jimmie Monreal, DO Height/Weight Height: 5 ft 9 in Weight: 105.1 kg Allergies Allergy/AdvReac Type Severity Reaction Status Date / Time Iodinated Contrast Media Allergy Severe HIVES, SOB Verified 10/02/23 13:25 pollen extracts Allergy Mild ITCHING, Verified 10/02/23 13:25 SNEEZING Medications Home Medications Medication Instructions Recorded Confirmed Last Taken albuterol sulfate 90 mcg/actuation 2 puff inhalation Q6H PRN SOB #18 01/31/19 10/02/23 Unknown aerosol inhaler grams fluoxetine 40 mg capsule (Prozac) 80 mg PO QAM 09/06/20 10/02/23 09/15/23 levothyroxine 150 mcg tablet 150 - 300 mcg PO UD 09/06/20 10/02/23 09/15/23 (Levoxyl) montelukast 10 mg tablet 10 mg PO QPM 09/06/20 10/02/23 08/22/23 20:00 cholecalciferol (vitamin D3) 10 10 mcg PO QAM 08/23/23 10/02/23 08/23/23 08:00 mcg (400 unit) capsule (Vitamin D3) ferrous sulfate 325 mg (65 mg 325 mg PO QAM 08/23/23 10/02/23 08/22/23 07:00 iron) tablet (Iron (ferrous sulfate)) omeprazole 40 mg capsule,delayed 40 mg PO QAM 08/23/23 10/02/23 09/15/23 release armodafinil 250 mg tablet 250 mg PO QAM 09/16/23 10/02/23 09/15/23 dicyclomine 10 mg capsule 10 mg PO QID PRN Abdominal cramps 09/17/23 10/02/23 Unknown hydroxyzine HCl 25 mg tablet 25 mg PO TID PRN anxiety #10 tabs 09/17/23 10/02/23 Unknown acetaminophen 500 mg tablet 1,000 mg PO Q6H PRN Pain 10/02/23 10/02/23 Unknown ibuprofen 800 mg tablet 800 mg PO TID PRN Pain 10/02/23 10/02/23 Unknown metoprolol tartrate 25 mg tablet 12.5 mg PO QPM 10/02/23 10/02/23 Unknown oxycodone 5 mg capsule 5 mg PO QID PRN Pain 10/02/23 10/02/23 Unknown Past Medical History Medical History (Updated 10/09/23 @ 10:21 by Elisabet Presley PA-C) ADHD ADHD meds currently on hold due to palpitations Asthma stable and controlled - usually aggravated by temperature changes/illness Depression Currently stable- following with therapist- feels stable for surgery Excessive daytime sleepiness GERD (gastroesophageal reflux disease) well controlled and stable History of anemia due to blood loss during menstrual cycles, had recent hysterectomy (09/28/23 at [facility]) History of palpitations 09/2023, "feels it was stress induced," reason for Metoprolol>getting further testing summer 2023 (possible ZIO monitor per PCP records); f/u PCP currently (denies issues since [facility] admission 09/2023) Hypothyroidism Mild obstructive sleep apnea "mild">tried device, unable to tolerate Nausea and vomiting after administration of anesthetic agent Osteoarthritis of knees, bilateral PLMD (periodic limb movement disorder) Seasonal allergies Ventricular septal defect - "born with this, has been monitored for years, thought to be mostly closed by cardiology">no current issues - follows with cardio q 10 years (no recent visits) Exercise / Class Metabolic Activity II 4-5 Yardwork/Stairs/Walk up hill (one flight of stairs - no chest pain or SOB ) Past Family History Family History Other Obstructive sleep apnea Past Surgical History Surgical History H/O section H/O tubal ligation History of carpal tunnel release of both wrists History of esophagogastroduodenoscopy (EGD) Hx of arthroscopy of right knee Hx of colonoscopy Hx of LASIK S/P laparoscopic hysterectomy 09/28/23, [facility] [place] teeth extracted Past Anesthesia History No Hx of Anesthesia Complications (with exception to PONV ) and No Family Hx of Anesthesia Complications History of PONV History of PONV (chronic issue - did have issues with most recent hysterectomy 09/28/23) and Hx of Motion Sickness Social History Smoking Status: Never smoker Do You Dip or Chew Tobacco: No Hx Alcohol Use: Yes alcohol intake frequency: holidays/special occasions only Hx Substance Use: No substance use type: does not use Review of Systems Patient denies chest pain, shortness of breath, dyspnea on exertion, cough, wheezing, palpitations. No hx of seizures, stroke, NC. No hx of blood clots or blood transfusions Physical Exam Vital Signs VITALS BP 120/88 (manually) P 74 TEMP 98.0 SP02 98% RESP 16 Constitutional no acute distress ENMT Mouth: no TMJ clicking Thyromental Distance: < 3.5 Finger Breadths (3.0) Mallampati Class: III Neck neck extension not limited Respiratory normal respiratory effort; no respiratory distress Auscultation: lungs clear to auscultation bilaterally; no wheezes Cardiovascular Rate/Rhythm: regular rate and regular rhythm Heart Sounds: no murmur Vessels: no carotid bruit Musculoskeletal Spine: no pain with cervical ROM Extremities: extremities normal to inspection Psychiatric Orientation: alert Lab Results Anesthesia Preop Results Results Anesthesia Widget: WBC 6.42 K/ul (4.8-10.8) 10/09/23 Hgb 11.4 g/dl (12.0-16.0) L 10/09/23 Hct 34.7 % (37.0-47.0) L 10/09/23 Plt 312 K/uL (130-400) 10/09/23 Na 136 mmol/L (136-145) 10/09/23 K 3.6 mmol/L (3.5-5.1) 10/09/23 Cl 103 mmol/L (98-107) 10/09/23 CO2 27 mmol/L (21-32) 10/09/23 BUN 10 mg/dl (6-23) 10/09/23 Creat 0.71 mg/dl (0.6-1.2) 10/09/23 Glucose Level 97 mg/dl (70-99(Fasting)) 10/09/23 PT 10.9 Seconds (9.0-12.0) 10/09/23 PTT 31 Seconds (21-31) 10/09/23 INR 1.0 (0.9-1.1) 10/09/23 Blood Type O Positive 10/09/23 Antibody Screen NEGATIVE 10/09/23 Testing Electrocardiogram Date: 09/17/23 Findings: + NSR @ (79bpm) Chest X-Ray Date: 09/16/23 Findings: + NAD FINDINGS: No lines and tubes are seen. The cardiomediastinal silhouette is normal. The lungs are clear. No evidence of pleural effusion or pneumothorax. IMPRESSION: No acute abnormalities and in particular no radiographic evidence of pneumonia Echocardiogram Date: 09/17/23 EF: 62% LV Function: normal RWMA: + none Other Findings: + LVH (mild/concentric ) Valvular Disease: + no significant valvular disease RV is normal in size and function There is no evidence of atrial septal defect, but resolution does not allow assessment for patent foramen ovale
[~2023-11-02 09:15] MED LIST changes: +BUPIVACAINE 0.5 % 5 MG/1 ML PF 10ML VIAL ONE; -LEVO175T3 PO; -LIOT5TAB9 PO; -PRENTAB26 PO; +ROPIVACAINE 0.5% 5 MG/ML 30 ML VIAL ONE; -SERT-234 PO
[2023-11-02] MEDS: LR 60ML/HR IV SCH (09:44)
[2023-11-02] MEDS: ACETAMINOPHEN 500 MG TAB PO SCH ×2 (09:45→16:00)
[2023-11-02] MEDS: GABAPENTIN 900 MG DOSE PO SCH (09:45)
[2023-11-02] MEDS: FAMOTIDINE 20 MG TAB PO SCH (09:45)
--- NOTE | 2023-11-02 10:03 | History & Physical Bridge Note ---
Date of Service November 02, 2023 History & Physical Bridge Note I have examined the patient, reviewed the History & Physical and in the interval since the performance of the History & Physical I have noted the following changes of clinical significance: no changes noted
[2023-11-02] MEDS ORDERED: MIDAZOLAM HCL 1 MG/ML 2ML VIAL ONE (10:10)
[2023-11-02] MEDS ORDERED: fentaNYL citrate PF 100 MCG/2 ML VIAL ONE (10:10)
[2023-11-02] MEDS: dexAMETHasone**PF** 10 MG/ML VIAL IV SCH (10:12)
[2023-11-02] MEDS: LR 500ML BOLUS, THEN 15ML/HR IV SCH (10:12)
[2023-11-02] MEDS ORDERED: PROPOFOL IV EMULSION 10 MG/ML 20 ML VIAL IV ONE (10:43)
[2023-11-02] MEDS: TRANEXAMIC ACID 1,000 MG **IV Pre-op IV SCH (10:50)
[2023-11-02] MEDS: ceFAZolin 2000MG 2,000 MG/15 ML SYR IV SCH ×2 (11:00→18:58)
[2023-11-02] MEDS: ROPIV 0.5% 246mg, Ketorolac 30mg, EPINEPHrine 0.5mg in NSS INFIL SCH (11:42)
[2023-11-02] MEDS: ORTHO JOINT ANESTHETIC ONE (11:42)
[2023-11-02] MEDS: TRANEXAMIC ACID 1,000 MG **IV Intra-op IV SCH (12:00)
[2023-11-02] MEDS ORDERED: LIDOCAINE 2% 2 ML VIAL/AMP(20MG/ML) INFIL ONE (12:03)
--- NOTE | 2023-11-02 12:06 | Operative Report ---
PG Post Operative Report Pre & Post Diagnosis Operation Date: 11/02/23 11:05 Pre-Op Diagnosis: Degenerative Joint Disease Right Knee Post-Op Diagnosis: Degenerative Joint Disease Right Knee I identified the patient and participated in the time-out.: Yes Procedure Operation Date: 11/02/23 11:05 Actual Procedures p Right Total Knee Arthroplasty(Right) - Jimmie Monreal DO Surgeon Jimmie Monreal DO [employer] Jimmie Griffith PA-C Estimated Blood Loss 30 Findings Consistent with Post-Op Diagnosis Specimens Right femoral tibial bone Description of Procedure Implants used: I used a Otis Persona total knee arthroplasty system with a size 8 standard femur, D tibia, 28 oval patella, and a size 14 medial congruent polyethylene bearing. All components were cemented in place with Biomet cement. Lenka arrived [facility] for the above procedure. She was seen in the preoperative holding area and the operative extremity was identified and signed. She was given a preoperative antibiotic, TXA, a spinal anesthetic and an adductor nerve block. She was taken back to the operating room and laid on the table in supine position. She was given basic sedation. The operative knee was then prepped and draped in sterile fashion. A timeout was done, and the patient and the operative extremity was properly identified. A midline incision was made directly over the patella. Dissection was taken down to the extensor mechanism. A subvastus arthrotomy was used. The medial retinaculum was released and the fat pad was mostly excised. The knee was flexed and the ACL, PCL, and meniscus were removed. A drill was sent down the center of the femoral canal followed by an intramedullary juju. Off that juju a distal femoral cutting block was placed. 9 mm was resected off the distal femur at 5 of valgus. A posterior referencing AP sizing guide was then placed on the distal femur. The femur measured to be a size 8. 2 drill holes were placed in 3 of external rotation. A 4-in-1 cutting block was then impacted into place. Anterior, posterior, and chamfer cuts were then made. The proximal tibia was then exposed. An external tibial alignment guide was placed. A tibial cut guide was then anchored in place and the proximal tibia was then resected. The posterior aspect of the knee was then opened up and any additional meniscus fragments and osteophytes were removed. The tibia measured to be a size E. The tibial plate was then placed in the appropriate rotation and the tibia was drilled and punched. Trial components were then placed. I used a size 14 medial congruent polyethylene insert. The knee was brought through a full range of motion and felt to be stable. The peg holes for the femoral component were then drilled. The patella was then everted and 9 mm was resected off the posterior aspect of the patella. The patella measured to be a size 28 oval. 3 peg holes were then drilled. A trial patella was placed. The knee was once again brought through a full range of motion and felt to be stable. Trial components were then removed. The surrounding soft tissues were injected with 100 cc of an orthopedic pain control cocktail. All components were then cemented into place with Biomet cement. The final polyethylene insert was then snapped into place. Once cement was dry the tourniquet was deflated. Hemostasis was obtained. A dilute betadyne lavage was then done for 3 minutes. The joint was then irrigated with normal saline solution. The subvastus arthro kojo was then closed with #1 Vicryl suture. The skin was closed with 2-0 Vicryl, 3-0V lock suture, and iban. A soft compressive dressing was placed. She was then transferred to a hospital bed and taken to the postanesthesia care unit in stable condition. She tolerated the procedure well. Jimmie Griffith PA-C, was present for the entire procedure. He was critical for patient positioning, prepping, draping, retraction exposure, wound closure and application of sterile dressing. I attest to the content of the Intraoperative Record and any orders documented therein. Any exceptions are noted below.
--- NOTE | 2023-11-02 13:47 | XRay Report ---
XR knee RT 1 or 2V routine CLINICAL HISTORY: Surgical Post Op TECHNIQUE: 2 views of the right knee were obtained. Comparison: None available at the time of this dictation. FINDINGS: Patient is status post total knee arthroplasty with expected postsurgical changes including soft tiss ue swelling and subcutaneous emphysema. No periarticular lucency or hardware fracture is seen. IMPRESSION: Expected postoperative appearance status post placement of total knee arthroplasty. ACT 112: Negative or not required by law. Electronically signed by: Addi Mcdonald M.D. 11/02/2023 1:46 PM
--- NOTE | 2023-11-02 13:49 | Anesthesiology Progress Note ---
Date of Service November 02, 2023 Anesthesia Post Procedure Vital Signs Vital Signs: Temp Pulse Resp BP Pulse Ox O2 Del Method 11/02/23 13:40 62 12 113/69 93 Room Air 11/02/23 13:30 63 14 120/74 93 Room Air 11/02/23 13:25 62 12 124/79 95 Room Air 11/02/23 13:15 60 14 121/76 99 Room Air 11/02/23 13:05 63 12 123/67 97 Room Air 11/02/23 12:55 62 12 131/82 96 Room Air 11/02/23 12:45 68 13 134/88 100 Room Air 11/02/23 12:35 68 12 133/79 100 Room Air 11/02/23 12:25 97.7 F 69 10 L 127/80 97 Room Air 11/02/23 09:47 97.9 F 67 20 127/83 96 Room Air Pain Intensity Right Knee: Pain Intensity: 2 Transfer of Care Handoff Completed per policy Notes Mental Status: alert / awake / arousable and participated in evaluation Patient Amnestic to Procedure: Yes Nausea / Vomiting: adequately controlled Pain: adequately controlled Airway Patency, RR, SpO2: stable & adequate BP & HR: stable & adequate Hydration State: stable & adequate Neuraxial Anesthesia: was administered and sensory block is resolving Anesthetic Complications: no major complications apparent and Pt Satisfied with anesthetic care
--- OUTSIDE RECORDS SUMMARY | 2023-11-02 13:52 | External Medical Summary | Summary of Care ---
Author Name Unknown Organization [facility] Address [address] [place] [address] Phone [phone] Care Team Providers Care Appliance Repairer Name Role Phone Chaya Thao DO Primary Care Provider [phone] Reason for Visit * Reason Comments Follow Up * Evaluate & Treat - Unlimited Visits (Within 10 days (routine)) - Pending Review Specialty Diagnoses / Procedures Referred By Delfin wong Referred To Contact Sleep Medicine / Sleep Disorders Diagnoses SOB (shortness of breath) Chronic fatigue June Colvin DO [address] [place] [address] Referral ID Status Reason Start Date Expiration Date Visits Requested Visits Authorized [id number] Pending Review Specialty Services Required 08/27/2023 2 2 Encounter Details Date Type Department Care Team (Late st Contact Info) Description 10/09/2023 1:00 PM EDT Telemedicine Sleep Disorders Ctr [facility] [address] [place] [phone] Evi Bartholomew CRNP [address] [place] [id number] JORDAN (obstructive sleep apnea)*; Hypersomnia; PLMD (periodic limb movement disorder); Restless legs syndrome (RLS) Allergies Active Allergy Reactions Criticality Noted Date Comments Iodinated Contrast Media 03/23/2010 hives documented as of this encounter (statuses as of 10/17/2023) Medications Medication Sig Dispensed Refills Start Date End Date Status Cholecalciferol (VITAMIN D-3) 1000 UNITS Capsule Take 1 Cap by mouth daily. 12/22/2015 Active fexofenadine (TOMMY ALLERGY) 180 MG Tablet Take 1 Tab by mouth daily. Use as needed for worsening nasal allergy symptoms 01/21/2020 Active Additional Information Patient not taking.Reported on 09/25/2023 FLUoxetine HCl 40 MG Oral Capsule (PROzac) Take 2 Capsules by mouth in the morning. Pt takes 2 tablets daily. . Active Fluticasone Propionate 50 MCG/ACT Nasal Suspension (Flonase)Indicatio ns:Seasonal allergic rhinitis due to pollen Administer 2 Sprays into nostril daily. 16 g 5 05/27/2020 Active Additional Information Patient not taking.Reported on 08/17/2023 Famotidine 20 MG Oral Tablet (Pepcid)Indication s:Acute gastritis without hemorrhage, unspecified gastritis type Take 1 Tab by mouth 2 times a day. 60 Tab 11 08/31/2020 Active Dicyclomine HCl 10 MG Oral Capsule (Bentyl) Take 1 Cap by mouth 4 times a day as needed (for abdomninal pain). 60 Cap 2 09/21/2020 Active Fluticasone Furoate-Vilanterol 100-25 MCG/INH Inhalation Aerosol Powder Breath Activated (BREO ellipta) Inhale by mouth 1 Puff in the morning. Use for worsening/persisten t asthma symptoms. 28 Each 5 08/05/2021 Active Additional Information Patient not taking.Reported on 08/17/2023 Ferrous Sulfate 325 (65 Fe) MG Oral Tablet (Feosol) Take 1 Tablet by mouth daily with breakfast. Active Armodafinil 200 MG Oral Tablet 150 08/17/2022 Active Omeprazole 40 MG Oral Capsule [...] every evening 30 Tablet 2 12/15/2022 Active hydrOXYzine HCl 25 MG Oral Tablet Take 1 Tablet by mouth 3 times a day as needed for Anxiety. 60 Tablet 1 09/19/2023 Active Metoprolol Tartrate 25 MG Oral Tablet (Lopressor) Take 0.5 Tablets by mouth every evening. 30 Tablet 3 09/19/2023 Active Albuterol Sulfate HFA 108 (90 Base) MCG/ACT Inhalation Aerosol SolutionIndication s:Mild intermittent asthma with exacerbation Inhale 2 Puffs by mouth every 6 hours as needed for Cough or Wheezing. 18 g 2 09/19/2023 Active ALPRAZolam 0.5 MG Oral Tablet (Xanax) Take 1 Tablet by mouth 3 times a day as needed for Sleep. 30 Tablet 09/19/2023 Active Acetaminophen 325 MG Oral Tablet (Tylenol) Take 3 Tablets by mouth every 8 hours as needed for Pain, Moderate. Alternate with Ibuprofen 30 Tablet 1 09/28/2023 Active Ibuprofen 800 MG Oral Tablet (Motrin) Take 1 Tablet by mouth every 8 hours as needed for Pain, Moderate. Alternate with Acetaminophen 30 Tablet 1 09/28/2023 Active oxyCODONE HCl 5 MG Oral Tablet (Oxy IR) Take 1 Tablet by mouth every 6 hours as needed for Pain, Severe. 10 Tablet 09/28/2023 Active Senna 8.6 MG Oral Capsule Take 1 Tablet by mouth daily as needed for Constipation for up to 1 dose. 14 Capsule 09/28/2023 Active Simethicone 80 MG Oral Tablet Chewable (Mylicon) Take 1 Tablet by mouth as needed for Gas. 30 Tablet 09/28/2023 Active Hospital, Clinic, or Other Facility Administered Medication Ordered Dose Route Frequency Start Date End Date Status Albuterol Sulfate (Proventil) (2.5 MG/3ML) 0.083% inhalation solution 2.5 mgIndications:SOB (shortness of breath),Mild persistent asthma without complication 2.5 mg NEBULIZER ONCE PRN 08/27/2023 08/26/2024 Active documented as of this encounter (statuses as of 10/17/2023) Active Problems Problem Noted Date Diagnosed Date S/P hysterectomy 09/29/2023 Status post bilateral salpingectomy 09/29/2023 Shortness of breath 09/28/2023 PLMD (periodic limb movement disorder) Abnormal uterine [...] as of this encounter (statuses as of 10/17/2023) Resolved Problems Problem Noted Date Diagnosed Date Resolved Date Vaginal burning 04/13/2023 09/25/2023 LUQ pain 12/02/2021 01/12/2023 Allergic conjunctivitis, bilateral [...] PM Elderly multigravida 12/05/2013 015 Overview: Desires [id number]; offer MSAFP after 15wks Patient received flu vaccine. 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 01/17/2009 12/05/2013 Overview: +RV culture; IV Abx in labor Ovarian cyst 07/05/2008 12/05/2013 Overview: L ovarian cyst on early sono -- repeat scan early [facility] Nausea with vomiting 06/29/2008 [...] as of this encounter (statuses as of 10/17/2023) Immunizations Name Administration Dates Next Due COVID-19 mRNA, LNP-s, No Pre serve, 2-Dose Series (Moderna) 07/03/2020,05/29/2020 H1N1 2009 Influenza, IM 03/15/2009 Hepatitis B, 20+ yrs 04/12/2023,11/10/2022,10/11 Pneumococcal Conjugate Vacci ne, 20-valent ([id number]) 10/11/2022 Pneumococcal Polysaccharide PPV23 (Pneumovax) 05/31/2011,2011(Deferred: Patient Refused) Seasonal Influenza, PF, 6 M & above, IM , (FluLaval or Fluzone) 03/09/2023,02/10/2022,03/24/2021,02/05,01/16/2019,02/05/2018,01/26/20 17 Seasonal Influenza, Quadriva lent, No Preserve, IM 04/06/2016 04/06/2017 Seasonal Influenza, Split, I IV3, With Preserve, Inj 01/29/2014,03/10/2013,02/14/2012,02/05,01/25/2009,05/02/2007 TDAP (age 10 and older)(Boostrix) 07/24/2014 TDAP, Age 7 and older, IM (Adacel) 02/12,09/03/2008(Deferred: Patient Refused) documented as of this encounter [...] Sign Reading Time Taken Comments Blood Pressure - - Pulse - - Temperature - - Respiratory Rate - - Oxygen Saturation - - Inhaled Oxygen Concentration - - Weight - - Height 175.3 cm (5' 9") 10/09/2023 12:28 PM EDT Body Mass Index - - documented in this encounter Functional Status Functional Status Response Date of Assess ment Are you deaf or do you have serious difficulty h earing? No 09/28/2023 Are you blind or do you have serious difficulty seeing, even when wearing glasses? No 09/28/2023 Do you have serious difficul ty walking or climbing stairs? (5 years old or older) No 09/28/2023 Do you have difficulty dress ing or bathing? (5 years old or older) No 09/28/2023 Because of a physical, menta l, or emotional condition, do you have difficulty doing errands alone such as visiting a doctor s office or shopping? (15 years old or older) No 09/28/19 Cognitive Status Response Date of Assessm ent Because of a physical, menta l, or emotional condition, do you have serious difficulty concentrating, remembering, or making decisions? (5 years old or older) No 09/28/2023 documented as of this encounter Patient Instructions * Patient Instructions* Evi Bartholomew CRNP - 10/17/2023 8:38 AM EDT Recommendations for sleep apnea: - Plan to get enough sleep at night. Most adults do best with 7-8 hours a night. Use CPAP whenever sleeping. - Exercise daily! Aim for 30 minutes per day of moderate-intensity exercise (enough to get your heart rate up and break out into a light sweat). - Losing even a little bit of weight can reduce the severity of sleep apnea, and may reduce the pressure of CPAP that is needed to treat your sleep apnea. - Avoid substances that suppress the central nervous system or the drive to breathe. This includes opiate pain medicines and alcohol. - Don't drive when you are sleepy/drowsy. If you become drowsy while driving, pulling unit floorhand, take a quick nap, get some caffeine, or get someone else to drive. documented in this encounter Progress Notes * Evi Bartholomew CRNP - 10/09/2023 1:20 PM EDT Patient location: HOME. I was in a hospital or clinic location. After connecting through [employer],patient was verified with two unique identifiers. Patient (or authorized legal outside energy sales representatives) was then informed that this was a Telemedicine visit and being conducted confidentially over secure lines. Methods to assure confidentiality were taken. Patient acknowledged consent and understanding of pr ivacy and security of the Telemedicine visit. The patient agreed to participate. [facility] Lenka Meyer is a 43 year old female seen today for follow-up with history of mild JORDAN and hypersomnolence with history of depression and hypothyroidism. Excessive daytime sleepiness noted since early 20s. Mother with history of JORDAN. Oldest child diagnosed with narcolepsy, age 15. Sleep testing: -Sleep testing early s, unsure of results -PSG 04/15/2019: TST 347 mins, 46 mins REM, SE 89%, PLMI 25, PLMAI 10, AHI 5.9/RDI 6 (34 H, 12 RERA), SpO2 katarzyna 88% -> intolerant to CPAP and unable to sleep through the night with it, tried a couple masks -PSG 04/16/2022 (wt 225 lb): AHI 10.6 (supine AHI 39, non-supine AHI 2.5), REM AHI 0, 32 mins REM, SpO2 katarzyna 89%, PLMI 35, PLMAI 16, total arousal index 46, EtCO2 wnl -> MSLT not performed Interim History: Was lost to follow-up after 2021 PSG. Continues with same symptoms including excessive daytime sleepiness. Had been on armodafinil for some time but recently stopped due to elevated BP and heart rate aroundthe time of a traumatic event. Recent hysterectomy. Taking iron. Ferritin 25, transferrin saturation 14%. Legs move throughout all day, some urge sensation at times but generally not. Weight 223 lb [place] Sleepiness Scale Question 10/09/2023 12:31 PM EDT - Filed by Geetha Bland LPN What is the chance you will doze off in the following situation? Sitting and reading High chance of dozing Watching TV Slight chance of dozing Sitting inactive in a public place, such as a theater or meeting Slight chance of dozing As a passenger in a car for an hour without a break High chance of dozing Lying down to rest in the afternoon when circumstances permit High chance of dozing When sitting and talking to someone No chance of dozing When sitting quietly after lunch without alcohol Moderate chance of dozing In a car, while stopped for a few minutes in traffic Slight chance of dozing Score (range: 0 - 24) 14 Problem List: Patient Active Problem List Diagnosis VSD (ventricular septal defect) SBE (subacute bacterial endocarditis) prophylaxis candidate History of 3 sections Primary hypothyroidism Chronic fatigue Major depressive disorder, recurrent (HCC) Recurrent sinus infections Mild persistent asthma without complication Primary osteoarthritis of both knees Nasal abscess Nostril infection JORDAN on CPAP Abnormal uterine bleeding (AUB) Mood swings PLMD (periodic limb movement disorder) Shortness of breath S/P hysterectomy Status post bilateral salpingectomy Current Medications: Current Outpatient Medications Medication Sig Dispense Refill Acetaminophen 325 MG Oral Tablet (Tylenol) Take 3 Tablets by mouth every 8 hours as needed for Pain, Moderate. Alternate with Ibuprofen 30 Tablet 1 Ibuprofen 800 MG Oral Tablet (Motrin) Take 1 Tablet by mouth every 8 hours as needed for Pain, Moderate. Alternate with Acetaminophen 30 Tablet 1 oxyCODONE HCl 5 MG Oral Tablet (Oxy IR) Take 1 Tablet by mouth every 6 hours as needed for Pain, Severe. 10 Tablet 0 Senna 8.6 MG Oral Capsule Take 1 Tablet by mouth daily as needed for Constipation for up to 1 dose.14 Capsule 0 Simethicone 80 MG Oral Tablet Chewable (Mylicon) Take 1 Tablet by mouth as needed for Gas. 30 Tablet 0 Albuterol Sulfate HFA 108 (90 Base) MCG/ACT Inhalation Aerosol Solution Inhale 2 Puffs by mouth every 6 hours as needed for Cough or Wheezing. 18 g 2 ALPRAZolam 0.5 MG Oral Tablet (Xanax) Take 1 Tablet by mouth 3 times a day as needed for Sleep. 30 Tablet 0 hydrOXYzine HCl 25 MG Oral Tablet Take 1 Tablet by mouth 3 times a day as needed for Anxiety. 60 Tablet 1 Metoprolol Tartrate 25 MG Oral Tablet (Lopressor) Take 0.5 Tablets by mouth every evening. 30 Tablet 3 Montelukast Sodium 10 MG Oral Tablet (Singulair) take 1 tablet by mouth every evening 30 Tablet 2 Synthroid 150 MCG Oral Tablet 1 tablet 6 days a week and 2 tablets 1 day a week (at least 30 min prior to breakfast or other meds) levothyroxine- generic not working 40 Tablet 5 Omeprazole 40 MG Oral Capsule Delayed Release (PriLOSEC) take 1 capsule by mouth every morning 1 hour before breakfast 30 Capsule 11 Ferrous Sulfate 325 (65 Fe) MG Oral Tablet (Feosol) Take 1 Tablet by mouth daily with breakfast. Dicyclomine HCl 10 MG Oral Capsule (Bentyl) Take 1 Cap by mouth 4 times a day as needed (for abdomninal pain). 60 Cap 2 Famotidine 20 MG Oral Tablet (Pepcid) Take 1 Tab by mouth 2 times a day. 60 Tab 11 FLUoxetine HCl 40 MG Oral Capsule (PROzac) Take 2 Capsules by mouth in the morning. Pt takes 2 tablets daily. . Cholecalciferol (VITAMIN D-3) 1000 UNITS Capsule Take 1 Cap by mouth daily. Armodafinil 200 MG Oral Tablet 150 (Patient not taking: Reported on 09/25/2023) Fluticasone Furoate-Vilanterol 100-25 MCG/INH Inhalation Aerosol Powder Breath Activated (BREO ellipta) Inhale by mouth 1 Puff in the morning. Use for worsening/persistent asthma symptoms. (Patient not taking: Reported on 08/17/2023) 28 Each 5 Fluticasone Propionate 50 MCG/ACT Nasal Suspension (Flonase) Administer 2 Sprays into nostril daily. (Patient not taking: Reported on 08/17/2023) 16 g 5 fexofenadine (TOMMY ALLERGY) 180 MG Tablet Take 1 Tab by mouth daily. Use as needed for worseningnasal allergy symptoms (Patient not taking: Reported on 09/25/2023) Current Facility-Administered Medications Medication Dose Route Frequency Provider Last Rate Last Admin Albuterol Sulfate (Proventil) (2.5 MG/3ML) 0.083% inhalation solution 2.5 mg 2.5 mg Nebulizer Once PRN June Colvin, Physical Exam: Constitutional: Alert, oriented and in no acute distress Neuro: Fluent speech Psych: Appropriate mood and affect Assessment & Plan: JORDAN (obstructive sleep apnea) (Primary) Mild JORDAN based on AHI criteria and positional related Previously intolerant to CPAP therapy with worsened sleep quality Discussed oral appliance therapy that can be made through dentistry. She is agreeable to looking into this treatment. Avoid supine sleep as able and sedatives Hypersomnia Onset 20+ years Continue to avoid engaging in activities that require full alertness when feeling sleepy or tired Continue to strive for a minimum of 7 hours of total sleep time nightly with routine sleep and wakescheduling as able Family history of narcolepsy- oldest child Once JORDAN is treated, reassessment of symptoms would be made with consideration for PSG/MSLT if hypersomnia persists despite treatment of JORDAN. Dr. Ocasio had planned to test her continuation of SSRI,would hold stimulant the week of testing PLMD (periodic limb movement disorder) Restless legs syndrome (RLS) May be secondary to SSRI or untreated JORDAN. Medications/substances that can induce or worsen RLS include: nicotine, caffeine, alcohol, SSRIs, SNRIs, tricyclic antidepressants, lithium, first generation antihistamines and dopamine D2 receptor antagonists (e.g. neuroleptics and antipsychotics). Low iron stores, now s/p hysterectomy -> recommend reassessing levels in 3-6 months, continue oral iron Follow Up: Return in about 6 months (around 04/09/2024) for jordan. | For: jordan AMILCAR [facility] I spent a total of 30-39 minutes (exact time 30 mins) on the date of service in preparation, delivery, and documentation of the care provided to Lenka Meyer excluding any time spent in the performance of separately billed services. documented in this encounter Nursing Notes * Geetha Bland LPN - 10/09/2023 12:31 PM EDT Pt for video f/u. She had PSG 2021, but never followed up. [place] Sleepiness Scale Question 10/09/2023 12:31 PM EDT - Filed by Geetha Bland LPN What is the chance you will doze off in the following situation? Sitting and reading High chance of dozing Watching TV Slight chance of dozing Sitting inactive in a public place, such as a theater or meeting Slight chance of dozing As a passenger in a car for an hour without a break High chance of dozing Lying down to rest in the afternoon when circumstances permit High chance of dozing When sitting and talking to someone No chance of dozing When sitting quietly after lunch without alcohol Moderate chance of dozing In a car, while stopped for a few minutes in traffic Slight chance of dozing Score (range: 0 - 24) 14 documented in this encounter Plan of Treatment Upcoming Encounters Date Type Department Care Team (Late st Contact Info) Description 10/31/2023 2:00 PM EDT Office Visit Family [facility] [address] [address] Guerda Vásquez CRNP [address] [place] [address] 11/09/2023 9:15 AM EDT [facility] [phone] Hayley Rojas PA-C [address] [facility] [place] [address] 11/22/2023 1:00 PM EDT Imaging Card[facility] Studies, [facility] [address] [facility] [id number] 04/09/2024 10:00 AM EST Telemedicine Sleep Disorders Ctr [facility] [address] [facility] [place] [phone] Evi Bartholomew CRNP [address] [facility] [place] [address] Scheduled Procedures Name Priority Associated Diagnoses Date/Ti me COLONOSCOPY FLEXIBLE PROXIMA L DIAGNOSTIC Recall Screening for colon cancer Scheduled Referrals Name Type Priority Associated Diagnoses Orde r Schedule SLEEP MEDICINE REFERRAL OP Referral Within 10 days (routine) SOB (shortness of breath) Chronic fatigue Ordered: 08/27/2023 Health Maintenance Due Date Last Done Comments Depression Monitoring 04/20/2022 04/20/2021 COVID-19 Vaccine (3 - 2022- season) 2023 07/03/2020, 05/29/2020 Cologuard 2023 Fecal Occult Blood Test 2023 Sigmoidoscopy 2023 Mammogram 03/26/2024 03/26/2023, 03/07, 04/12/2021, Additional history exists DTaP,Tdap,and Td Vaccines (3 - Td or Tdap) 07/24/2024 07/24/2014, 02/12/2009 TSH 08/16/2024 08/17/2023, 05/07, 03/19/2023, Additional history exists Diabetes Screening 10/01/2026 10/02/2023, 0 09/29/2023, 09/28/2023, Additional history exists Colonoscopy 11/24/2026 11/24/2021, 11/05, 09/27/2020, Additional history exists Colorectal Cancer Screening 11/24/2026 Lipid Panel 08/26/2028 08/27/2023, 10/19/2005 RETIRED - COLONOSCOPY-ANNUAL AGES 18-100 Discontinued 11/24/2021, 11/24/2021, 09/27/2020, Additional history exists RETIRED - COLONOSCOPY-EVERY 5 YRS AGES 18-100 Discontinued 11/24/2021, 11/24/2021, 09/27/2020, Additional history exists Cervical Cancer Screening Discontinued Pap Smear Discontinued 01/10/2022, 07/06, 12/19/2015, Additional history exists Pneumococcal Vaccine: Pediatrics (0 to 5 Years) and At-Risk Patients (6 to 64 Years) Completed 10/11/2022, 05/31/2011 Influenza Vaccine (FLU shot) Completed 03/09/2023, 02/10/2022, 03/24/2021, Additional history exists Hepatitis B Completed 04/12/2023, 11/2022, 10/11/2022 GARDASIL-HPV IMMUNIZATION SERIES Aged Out No longer eligible based on patient's age to complete this topic HPV/Co-Test Discontinued MENINGOCOCCAL (MENACTRA/MENVEO) Aged Out No longer eligible based on patient's age to complete this topic documented as of this encounter Medical Devices Not on filedocumented as of this encounter Visit Diagnoses Diagnosis JORDAN (obstructive sleep apnea)- Primary Obstructive sleep apnea (adult) (pediatric) Hypersomnia Hypersomnia, unspecified PLMD (periodic limb movement disorder) Periodic limb movement disorder Restless legs syndrome (RLS) documented in this encounter Advance Directives * Full Code (Latest Code Status on File) Date Activated Date Inactivated Comments 09/28/2023 3:15 PM 09/29/2023 2:36 PM This order r eflects the patients wishes and were consensually agreed upon. Question Answer Comments Discussion of Advance Directives occurred with: Patient * Full Code Date Activated Date Inactivated Comments 09/28/2023 9:24 AM 09/28/2023 3:15 PM This order r eflects the patients wishes and were consensually agreed upon. Question Answer Comments Discussion of Advance Directives occurred with: Patient Care Teams Appliance Repairer Relationship Specialty Start Date End Date Chaya Thao DO [address] [place] [address] PCP - General Family Medicine 03/03/16 documented as of this encounter
--- OUTSIDE RECORDS SUMMARY | 2023-11-02 13:52 | External Medical Summary | Summary of Care ---
Author Name Unknown Organization [facility] Address [address] [place] [facility] [place] [address] Phone [phone] Care Team Providers Care Home Health Aid Name Role Phone Chaya Thao DO Primary Care Provider [phone] Encounter Details Date Type Department Care Team (Late st Contact Info) Description 10/24/2023 Orders Only Gynecology and Obstetrics, [place] [address] [place], [place] [id number] Kourtney Cordova MD [address] [place] [address] Allergies Active Allergy Reactions Criticality Noted Date Comments Iodinated Contrast Media 03/23/2010 hives documented as of this encounter (statuses as of 10/24/2023) Medications Medication Sig Dispensed Refills Start Date End Date Status Cholecalciferol (VITAMIN D-3) 1000 UNITS Capsule Take 1 Cap by mouth daily. 6 Active fexofenadine (TOMMY ALLERGY) 180 MG Tablet Take 1 Tab by mouth daily. Use as needed for worsening nasal allergy symptoms 0 Active Additional Information Patient not taking.Reported on 09/25/2023 FLUoxetine HCl 40 MG Oral Capsule (PROzac) Take 2 Capsules by mouth in the morning. Pt takes 2 tablets daily. . Active Fluticasone Propionate 50 MCG/ACT Nasal Suspension (Flonase)Indicati ons:Seasonal allergic rhinitis due to pollen Administer 2 Sprays into nostril daily. 16 g 5 1 Active Additional Information Patient not taking.Reported on 08/17/2023 Famotidine 20 MG Oral Tablet (Pepcid)Indicatio ns:Acute gastritis without hemorrhage, unspecified gastritis type Take 1 Tab by mouth 2 times a day. 60 Tab 11 1 Active Dicyclomine HCl 10 MG Oral Capsule (Bentyl) Take 1 Cap by mouth 4 times a day as needed (for abdomninal pain). 60 Cap 2 1 Active Fluticasone Furoate-Vilantero l 100-25 MCG/INH Inhalation Aerosol Powder Breath Activated (BREO ellipta) Inhale by mouth 1 Puff in the morning. Use for worsening/persist ent asthma symptoms. 28 Each 5 2 Active Additional Information Patient not taking.Reported on 08/17/2023 Ferrous Sulfate 325 (65 Fe) MG Oral Tablet (Feosol) Take 1 Tablet by mouth daily with breakfast. Active Armodafinil 200 MG Oral Tablet 150 3 Active Synthroid 150 MCG Oral Tablet 1 tablet 6 days a week and 2 tablets 1 day a week (at least 30 min prior to breakfast or other meds) levothyroxine- generic not working 40 Tablet 5 3 Active Montelukast Sodium 10 MG Oral Tablet (Singulair) take 1 tablet by mouth every evening 30 Tablet 2 3 Active hydrOXYzine HCl 25 MG Oral Tablet Take 1 Tablet by mouth 3 times a day as needed for Anxiety. 60 Tablet 1 4 Active Metoprolol Tartrate 25 MG Oral Tablet (Lopressor) Take 0.5 Tablets by mouth every evening. 30 Tablet 3 4 Active Albuterol Sulfate HFA 108 (90 Base) MCG/ACT Inhalation Aerosol SolutionIndicatio ns:Mild intermittent asthma with exacerbation Inhale 2 Puffs by mouth every 6 hours as needed for Cough or Wheezing. 18 g 2 4 Active ALPRAZolam 0.5 MG Oral Tablet (Xanax) Take 1 Tablet by mouth 3 times a day as needed for Sleep. 30 Tablet 4 Active Acetaminophen 325 MG Oral Tablet (Tylenol) Take 3 Tablets by mouth every 8 hours as needed for Pain, Moderate. Alternate with Ibuprofen 30 Tablet 1 4 Active Ibuprofen 800 MG Oral Tablet (Motrin) Take 1 Tablet by mouth every 8 hours as needed for Pain, Moderate. Alternate with Acetaminophen 30 Tablet 1 4 Active oxyCODONE HCl 5 MG Oral Tablet (Oxy IR) Take 1 Tablet by mouth every 6 hours as needed for Pain, Severe. 10 Tablet 4 Active Senna 8.6 MG Oral Capsule Take 1 Tablet by mouth daily as needed for Constipation for up to 1 dose. 14 Capsule 4 Active Simethicone 80 MG Oral Tablet Chewable (Mylicon) Take 1 Tablet by mouth as needed for Gas. 30 Tablet 4 Active Omeprazole 40 MG Oral Capsule Delayed Release (PriLOSEC) take 1 capsule by mouth every morning 1 hour before breakfast 30 Capsule 11 4 Active Cephalexin 500 MG Oral Capsule (Keflex) Take 1 Capsule by mouth in the morning and 1 Capsule before bedtime. Until gone.. 14 Capsule 4 Active Cephalexin 500 MG Oral Capsule (Keflex) Take 1 Capsule by mouth in the morning and 1 Capsule before bedtime. Do all this for 7 days. Until gone.. 14 Capsule 4 10/24/19 24 Discontinued Hospital, Clinic, or Other Facility Administered Medication Ordered Dose Route Frequency Start Date End Date Status Albuterol Sulfate (Proventil) (2.5 MG/3ML) 0.083% inhalation solution 2.5 mgIndications:SOB (shortness of breath),Mild persistent asthma without complication 2.5 mg NEBULIZER ONCE PRN 08/27/2023 08/26/2024 Active documented as of this encounter (statuses as of 10/24/2023) Active Problems Problem Noted Date Diagnosed Date S/P hysterectomy 09/29/2023 Status post bilateral salpingectomy 09/29/2023 Shortness of breath 09/28/2023 PLMD (periodic limb movement disorder) 3 Abnormal uterine bleeding (AUB) 01/12/2023 Mood swings [...] as of this encounter (statuses as of 10/24/2023) Resolved Problems Problem Noted Date Diagnosed Date [...] PM Elderly multigravida 12/05/2013 015 Overview: Desires [id number]; offer MSAFP after 15wks Patient received flu vaccine. 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 01/17/2009 12/05/2013 Overview: +RV culture; IV Abx in labor Ovarian cyst 07/05/2008 12/05/2013 Overview: L ovarian cyst on early sono -- repeat scan early August-[facility] for 08/03 Nausea with vomiting 06/29/2008 [...] as of this encounter (statuses as of 10/24/2023) Immunizations Name Administration Dates Next Due COVID-19 mRNA, LNP-s, No Pre serve, 2-Dose Series (Moderna) 07/03/2020,05/29/2020 H1N1 2009 Influenza, IM 03/15/2009 Hepatitis B, 20+ yrs 04/12/2023,11/10/2022,10/11 Pneumococcal Conjugate Vacci ne, 20-valent ([id number]) 10/11/2022 Pneumococcal Polysaccharide PPV23 (Pneumovax) 05/31/2011,2011(Deferred: Patient [...] in the Last Year Never true 05/22/2019 Utilities Answer Date Recorded Do you have trouble paying y our heating, water, or electric bill? (Adult - for ages 18 years and over) Not on file 10/23/2023 Is your family able to pay t he heat, water, or electric bill? (Household - for ages 0-17 years) Not on file 10/23/2023 Does your family have access to good internet? (Household - for ages 0-17 years) Not on file 10/23/2023 Social Connections Answer Date Recorded How often do you feel lonely or isolated from those around you? (Adult - for ages 18 years and over) Not on file 10/23/2023 Sex and Gender Information Value Date Recorded Sex Assigned at Female 11/19/2019 9:42 AM EDT Gender Identity Female 11/19/2019 9:42 AM EDT Sexual Orientation Straight 11/19/2019 9: 42 AM EDT Job Start Date Occupation Industry Not on file Not on file Not on file documented as of this encounter Functional Status Functional Status Response [...] No 09/28/2023 documented as of this encounter Plan of Treatment Upcoming Encounters Date Type Department Care Team (Late st Contact Info) Description 10/31/2023 2:00 PM EDT Office Visit Family Practice [facility] [address] [id number] Guerda Vásquez CRNP [address] [place] [address] 11/09/2023 9:15 AM EDT Office Visit Gynecology/Obstetics [place] [address] [place] [address] Hayley Rojas PA-C [address] [place] [address] 11/22/2023 1:00 PM EDT Imaging Cardiac Studies, [facility] [address] [address] 04/09/2024 10:00 AM EST Telemedicine [facility] [address] [facility] [place] [phone] Evi Bartholomew CRNP [address] [place] [address] Scheduled Procedures Name Priority Associated Diagnoses Date/Ti me COLONOSCOPY FLEXIBLE PROXIMA L DIAGNOSTIC Recall Screening for colon cancer Health Maintenance Due Date Last Done Comments Depression Monitoring 04/20/2022 04/20/2021 COVID-19 Vaccine ( season) 2023 07/03/2020, 05/29/2020 Cologuard 2023 Fecal [...] Not on filedocumented as of this encounter Advance Directives * Full Code [...] Advance Directives occurred with: Patient Care Teams Home Health Aid Relationship Specialty Start Date End Date Chaya Thao DO [address] [place] [address] PCP - General Family Medicine 03/03/16 documented as of this encounter
--- OUTSIDE RECORDS SUMMARY | 2023-11-02 13:52 | External Medical Summary | Summary of Care ---
Author Name Unknown Organization [facility] Address [address] [facility] [place] [address] Phone [phone] Care Team Providers Care Coal Carrier Name Role Phone Luke Escobar DO Primary Care Provider [phone] Reason for Visit * Reason Onset Date Comments Medication Refill 10/22/2023 Encounter Details Date Type Department Care Team (Late st Contact Info) Description 10/22/2023 Refill Family Practice [facility] [address] [place] [address] June Colvin DO [address] [place] [address] Allergies Active Allergy Reactions Criticality Noted Date Comments Iodinated Contrast Media 03/23/2010 hives documented as of this encounter (statuses as of 10/22/2023) Medications Medication Sig Dispensed Refills Start Date [...] pain). 60 Cap 2 09/21/2020 Active Fluticasone Furoate-Vilantero l 100-25 MCG/INH Inhalation [...] 200 MG Oral Tablet 150 08/17/2022 Active Synthroid 150 MCG Oral Tablet 1 [...] needed for Gas. 30 Tablet 09/28/2023 Active Omeprazole 40 MG Oral Capsule Delayed Release (PriLOSEC) take 1 capsule by mouth every morning 1 hour before breakfast 30 Capsule 11 10/22/2023 Active Omeprazole 40 MG Oral Capsule Delayed Release (PriLOSEC) take 1 capsule by mouth every morning 1 hour before breakfast 30 Capsule 11 12/12/2022 4 Discontinu ed(Refill) Hospital, Clinic, or Other Facility Administered Medication Ordered Dose Route Frequency Start Date End Date Status Albuterol Sulfate (Proventil) (2.5 MG/3ML) 0.083% inhalation solution 2.5 mgIndications:SOB (shortness of breath),Mild persistent asthma without complication 2.5 mg NEBULIZER ONCE PRN 08/27/2023 08/26/2024 Active documented as of this encounter (statuses as of 10/22/2023) Active Problems Problem Noted Date Diagnosed Date [...] as of this encounter (statuses as of 10/22/2023) Resolved Problems Problem Noted Date Diagnosed Date [...] PM Elderly multigravida 12/05/2013 015 Overview: Desires [id number]; offer MSAFP after 15wks Patient received flu vaccine. 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 01/17/2009 12/05/2013 Overview: +RV culture; IV Abx in labor Ovarian cyst 07/05/2008 12/05/2013 Overview: L ovarian cyst on early sono -- repeat scan early August-[facility] for 08/03 Nausea with vomiting [...] as of this encounter (statuses as of 10/22/2023) Immunizations Name Administration Dates Next Due COVID-19 mRNA, LNP-s, No Pre serve, 2-Dose Series (Moderna) 07/03/2020,05/29/2020 H1N1 2009 Influenza, IM 03/15/2009 Hepatitis B, 20+ yrs 04/12/2023,11/10/2022,10/11 Pneumococcal Conjugate Vacci ne, 20-valent ([id number]) 10/11/2022 Pneumococcal Polysaccharide PPV23 (Pneumovax) 05/31/2011,2011(Deferred: Patient [...] (15 years old or older) No 09/28/19 24 Cognitive Status Response Date of Assessm ent Because of a physical, menta l, or emotional condition, do you have serious difficulty concentrating, remembering, or making decisions? (5 years old or older) No 09/28/2023 documented as of this encounter Miscellaneous Notes * Telephone Encounter - Luke Escobar DO - 10/22/2023 3:34 PM EDTSigned Prescriptions: Disp Refills Omeprazole 40 MG Oral Capsule Delayed Rele*30 Cap*11 Sig: take 1 capsule by mouth every morning 1 hour before breakfast Authorizing Provider: LUKE ESCOBAR * Telephone Encounter - Josefa Nye LPN - 10/22/2023 2:03 PM EDTPending Prescriptions: Disp Refills Omeprazole 40 MG Oral Capsule Delayed Rele*30 Cap*11 Sig: take 1 capsule by mouth every morning 1 hour before breakfast * Telephone Encounter - Ana Lilia Pinto OSA - 10/22/2023 1:59 PM EDT Did you pend patient's preferred pharmacy and medication before forwarding?yes Pharmacy: [id number] [facility] Pending Prescriptions: Disp Refills Omeprazole 40 MG Oral Capsule Delayed Rel*30 Cap*11 Sig: take 1 capsule by mouth every morning 1 hour before breakfast Last Visit: 10/02/2023 (in office), 09/07/2021 (telemedicine) Next Visit: 10/31/2023 If no future appointments scheduled, and last appointment is greater than a year ago, please schedule patient for a follow-up appointment Last date the medication was ordered: 12.12.22 Is this request for a controlled substance?No Urine Drug Screen:No results found. However, due to the size of the patient record, not all encounters were searched. Please check Results Review for a complete set of results. Patient Phone Numbers Labs: Lab Results Component Value Date/Time CREAT 0.7 10/02/2023 11:20 AM CREAT 0.74 09/06/2020 12:00 AM CREAT 0.7 11/25/2014 02:08 PM POTASSIUM 4.0 10/02/2023 11:20 AM POTASSIUM 3.2 (A) 09/06/2020 12:00 AM POTASSIUM 4.1 11/25/2014 02:08 PM TSH 1.28 08/17/2023 11:48 AM TSH 1.09 04/12/2020 11:05 AM LDLCALC 114 08/27/2023 08:37 AM LDLCALC 78 10/19/2005 11:23 AM ALT 19 09/29/2023 06:34 AM ALT 28 11/25/2014 02:08 PM HGBA1C 5.3 09/26/2023 08:30 AM HGBA1C 5.5 03/14/2019 10:03 AM documented in this encounter Plan of Treatment Upcoming Encounters Date Type Department Care Team (Late st Contact Info) Description 10/31/2023 2:00 PM EDT Office Visit Family Practice [facility] [address] [facility] [place] [address] Guerda Vásquez CRNP [address] [facility] [place] [address] 11/09/2023 9:15 AM EDT Office Visit [facility]ne[facility] [place] [address] [facility] [phone] Hayley Rojas PA-C [address] [facility] [address] 11/22/2023 1:00 PM EDT Imaging Card[facility] Studies, [facility] [address] [facility] [place] [address] 04/09/2024 10:00 AM EST Telemedicine Sleep Disorders Ctr [facility] [address] [facility] [place] [phone] Evi Bartholomew CRNP [address] [place] [address] Scheduled Procedures Name Priority Associated Diagnoses Date/Ti [...] Additional history exists Hepatitis B Completed 04/12/2023, 070 11/2022, 10/11/2022 GARDASIL-HPV IMMUNIZATION SERIES Aged Out [...] Advance Directives occurred with: Patient Care Teams Coal Carrier Relationship Specialty Start Date End Date Luke Escobar DO [address] [place] [address] PCP - General Family Medicine 03/03/16 documented as of this encounter
--- OUTSIDE RECORDS SUMMARY | 2023-11-02 13:52 | External Medical Summary | Summary of Care ---
Author Name Unknown Organization [facility] Address [address] [place] [address] Phone [phone] Care Team Providers Care Acid Operator Name Role Phone Chaya Thao DO Primary Care Provider [phone] Reason for Visit * Reason Comments Post-Op Encounter Details Date Type Department Care Team (Latest Contact Info) Description 10/11/2023 1:15 PM EDT Office Visit Gynecology/Obstetics [facility] [address] [place] [phone] Hayley Rojas PA-C [address] [place] [address] Postoperative follow-up* Allergies Active Allergy Reactions Criticality Noted Date Comments Iodinated Contrast Media 03/23/2010 hives documented as of this encounter (statuses as of 10/13/2023) Medications Medication Sig Dispensed Refills Start Date [...] as of this encounter (statuses as of 10/13/2023) Active Problems Problem Noted Date Diagnosed Date [...] as of this encounter (statuses as of 10/13/2023) Resolved Problems Problem Noted Date Diagnosed Date [...] PM Elderly multigravida 12/05/2013 015 Overview: Desires [id number]; offer MSAFP after 15wks Patient received flu vaccine. 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 01/17/2009 12/05/2013 Overview: +RV culture; IV Abx in labor Ovarian cyst 07/05/2008 12/05/2013 Overview: L ovarian cyst on early sono -- repeat scan early August-[facility] for 08/03 Nausea with vomiting 06/29/2008 014 Overview: Diet discussed. Rx Phenergan 25 mg tabs and Zofran 8 mg ODT. Poor growth, affecting management of mother, antepartum condition or complication 09/17/2006 02/06/2008 Allergic conjunctivitis 03/16/2005 12/05/2015 Intermittent asthma with rel iever use up [...] as of this encounter (statuses as of 10/13/2023) Immunizations Name Administration Dates Next Due COVID-19 mRNA, LNP-s, No Pre serve, 2-Dose Series (Moderna) 07/03/2020,05/29/2020 H1N1 2009 Influenza, IM 03/15/2009 Hepatitis B, 20+ yrs 04/12/2023,11/10/2022,10/11 Pneumococcal Conjugate Vacci ne, 20-valent ([id number]) 10/11/2022 Pneumococcal Polysaccharide PPV23 (Pneumovax) 05/31/2011,2011(Deferred: Patient [...] Sign Reading Time Taken Comments Blood Pressure 114/70 10/11/2023 1:06 PM EDT Pulse - - Temperature - - Respiratory Rate - - Oxygen Saturation - - Inhaled Oxygen Concentration - - Weight 103.8 kg (228 lb 12.8 oz) 2023 1:06 PM EDT Height - - Body Mass Index 33.79 10/09/2023 12:28 PM EDT documented in this encounter Functional Status Functional [...] No 09/28/2023 documented as of this encounter Progress Notes * Hayley Rojas PA-C - 10/11/2023 1:37 PM EDT Chief Complaint: The patient is a 43 year old female here for postoperative appointment. History of Present Illness: Patient is here for postoperative appointment. Operation: 1. Total laparoscopic hysterectomy 2. Bilateral salpingectomy 3. TAP block Patient reports that left lower abdominal pain. Patient reports that she notices that the symptoms are deep and around the incision. Patient reports that she has a clot that she passed and then some vaginal bleeding after that, but not heavy. Patient reports reports that she light spotting when wiping on the toilet paper now. Patient reports that spotting is infrequent and very light now. Patient is not doing any heavy lifting. Patient reports that the incisions are healing well. Medications: Current Outpatient Medications Medication Sig Dispense Refill Cholecalciferol (VITAMIN D-3) 1000 UNITS Capsule Take 1 Cap by mouth daily. fexofenadine (TOMMY ALLERGY) 180 MG Tablet Take 1 Tab by mouth daily. Use as needed for worseningnasal allergy symptoms (Patient not taking: Reported on 09/25/2023) FLUoxetine HCl 40 MG Oral Capsule (PROzac) Take 2 Capsules by mouth in the morning. Pt takes 2 tablets daily. . Fluticasone Propionate 50 MCG/ACT Nasal Suspension (Flonase) Administer 2 Sprays into nostril daily. (Patient not taking: Reported on 08/17/2023) 16 g 5 Famotidine 20 MG Oral Tablet (Pepcid) Take 1 Tab by mouth 2 times a day. 60 Tab 11 Dicyclomine HCl 10 MG Oral Capsule (Bentyl) Take 1 Cap by mouth 4 times a day as needed (for abdomninal pain). 60 Cap 2 Fluticasone Furoate-Vilanterol 100-25 MCG/INH Inhalation Aerosol Powder Breath Activated (BREO ellipta) Inhale by mouth 1 Puff in the morning. Use for worsening/persistent asthma symptoms. (Patient not taking: Reported on 08/17/2023) 28 Each 5 Ferrous Sulfate 325 (65 Fe) MG Oral Tablet (Feosol) Take 1 Tablet by mouth daily with breakfast. Armodafinil 200 MG Oral Tablet 150 (Patient not taking: Reported on 09/25/2023) Omeprazole 40 MG Oral Capsule Delayed Release [...] by mouth every evening 30 Tablet 2 hydrOXYzine HCl 25 MG Oral Tablet Take 1 Tablet by mouth 3 times a day as needed for Anxiety. 60 Tablet 1 Metoprolol Tartrate 25 MG Oral Tablet (Lopressor) Take 0.5 Tablets by mouth every evening. 30 Tablet 3 Albuterol Sulfate HFA 108 (90 Base) MCG/ACT Inhalation Aerosol Solution Inhale 2 Puffs by mouth every 6 hours as needed for Cough or Wheezing. 18 g 2 ALPRAZolam 0.5 MG Oral Tablet (Xanax) Take 1 Tablet by mouth 3 times a day as needed for Sleep. 30 Tablet 0 Acetaminophen 325 MG Oral Tablet (Tylenol) Take [...] as needed for Gas. 30 Tablet 0 Current Facility-Administered Medications Medication Dose Route Frequency Provider Last Rate Last Admin Albuterol Sulfate (Proventil) (2.5 MG/3ML) 0.083% inhalation solution 2.5 mg 2.5 mg Nebulizer Once PRN June Colvin, Allergies: Review of patient's allergies indicates: Allergen Reactions Iodinated Contrast Media hives Past Medical History: Diagnosis Date ALLERGIC RHINITIS [...] performed by Audrey Rothman MD at ENDOSCOPY [facility] DENTAL SURGERY PROCEDURE NEC 1998 wisdom teeth EGD, FLEXIBLE, DIAGNOSTIC 11/24/2021 normal bx / ESOPHAGOGASTRODUODENOSCOPY (EGD), FLEXIBLE, TRANSORAL, DIAGNOSTIC performed by Audrey Mendieta MD at ENDOSCOPY [facility] INJECT DX/THER SUBSTANCE INTERLAMINAR LUMBAR/SACRAL W IMAGE GUIDE 11/04/2018 INJECTION SPINE LUMBAR OR SACRAL performed by Trey Calle DO at OR [facility] LAPAROSCOPY TOTAL HYSTX, UTERUS 250GM OR LESS TUBE/OVARY Bilateral 09/28/2023 LAPAROSCOPIC HYSTERECTOMY REMOVAL TUBES AND/OR OVARIES FOR UTERUS 250GM OR LESS performed by Parth Sarabia MD at OR [facility] LIGATE/CUT OVIDUCT(S) Bilateral 2014 REPAIR OF KNEE CARTILAGE Right 10/2016 Dr. Dey Review of Systems: Denies fever or chills. Positive for left lower abdominal pain around incision. Denies heavy vaginal bleeding. Positive for light vaginal spotting when wiping. Denies dysuria, urinary frequency or urinary urgency. Denies vaginal odor or itching. OBJECTIVE: BP 114/70 | Wt 103.8 kg (228 lb 12.8 oz) | LMP 03/31/2023 | BMI 33.79 kg/m | BSA 2.25 m General: awake, alert, and oriented x 3, normal affect, no acute distress Abdominal pain: soft, non-distended, no masses. Left lower abdominal tenderness on palpation aroundincision - appropriate. Incisions clean, dry and intact. ASSESSMENT/PLAN: Postoperative follow-up (Primary) Healing well from surgical procedure. Suspect appropriate tenderness around left incision. Advised patient to monitor closely. Advised patient to go to the emergency room heavy vaginal bleeding, fever, chills, severe abdominalpain, or any other concerns. Answered patient's questions. Reviewed surgical pathology with patient. Advised nothing in the vagina for 6 weeks. Advised no heavy lifting. Blood pressure is normal today. Patient has good support to help patient due to recent loss of her daughter. Pathology: A. Uterus, cervix, portions of bilateral fallopian tubes, hysterectomy with partial salpingectomy - Inactive endometrium - Cervix is unremarkable - Adenomyosis - Portions of bilateral tubes, unremarkable Return to the office for 6 weeks postoperative appointment or sooner if any concerns. Hayley Christy PA-C documented in this encounter Nursing Notes * Doreen Goyal CCMA - 10/11/2023 1:04 PM EDT Pt here for post op- reports bleeding 10/06/2023. No bleeding since. Having pain LLQ documented in this encounter Plan of Treatment Upcoming Encounters Date Type Department Care Team (Late st Contact Info) Description 10/16/2023 1:30 PM EDT PulmDiagnostic Pulmonary Function Lab, [facility] [address] [facility] [place] [address] [address], [address] [facility] [place] [address] 10/31/2023 2:00 PM EDT Office Visit Family Practice [facility] [address] [facility] [place] [address] Guerda Vásquez CRNP [address] [facility] [place] [address] 11/09/2023 9:15 AM EDT Office Visit Gynecology/Obstetics [facility] [address] [place] [phone] Hayley Rojas PA-C [address] [place] [address] 11/22/2023 1:00 PM EDT Imaging Cardiac Studies, [facility] [address] [facility] [place] [address] 04/09/2024 10:00 AM EST Telemedicine Sleep Disorders Ctr [facility] [address] [facility] [place] [phone] Evi Bartholomew CRNP [address] [place] [address] Scheduled Procedures Name Priority Associated Diagnoses Date/Ti me COLONOSCOPY FLEXIBLE PROXIMA L DIAGNOSTIC Recall Screening for colon cancer Health Maintenance Due Date Last Done Comments COVID-19 Vaccine (2022- season) 2023 07/03/2020, 05/29/2020 Cologuard 2023 Fecal [...] as of this encounter Visit Diagnoses Diagnosis Postoperative follow-up- Primary Follow-up examination, following unspecified surgery documented in this encounter Advance Directives * [...] Advance Directives occurred with: Patient Care Teams Acid Operator Relationship Specialty Start Date End Date Chaya Thao DO [address] [facility] [place] [address] PCP - General Family Medicine 03/03/16 documented as of this encounter"
--- OUTSIDE RECORDS SUMMARY | 2023-11-02 13:52 | External Medical Summary | Summary of Care ---
Author Name Unknown Organization [facility] [address] [place] [address] Phone [phone] Care Team Providers Care Lip And Gate Builder Name Role Phone Chaya Thao DO Primary Care Provider [phone] Encounter Details Date Type Department Care Team (Late st Contact Info) Description 10/22/2023 Orders Only Gynecology/Obstetrics [facility] [address], [place] [phone] Kourtney Cordova MD [address] [place] [address] Allergies Active Allergy Reactions Criticality Noted Date [...] needed for Gas. 30 Tablet 09/28/2023 Active Cephalexin 500 MG Oral Capsule (Keflex) Take 1 Capsule by mouth in the morning and 1 Capsule before bedtime. Do all this for 7 days. Until gone.. 14 Capsule 10/22/2023 Active Hospital, Clinic, or Other Facility Administered [...] PM Elderly multigravida 12/05/2013 015 Overview: Desires [id number]; offer MSAFP after 15wks Patient received flu vaccine. 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 01/17/2009 12/05/2013 Overview: +RV culture; IV Abx in labor Ovarian cyst 07/05/2008 12/05/2013 Overview: L ovarian cyst on early sono -- repeat scan early August-[facility] for 08/03 Nausea with vomiting [...] yrs 04/12/2023,11/10/2022,10/11 Pneumococcal Conjugate Vacci ne, 20-valent ([id number]) 10/11/2022 Pneumococcal Polysaccharide PPV23 (Pneumovax) 05/31/2011,2011(Deferred: Patient [...] 2:00 PM EDT Office Visit Family Practice [facility] [address] [place] [address] Guerda Vásquez CRNP [address] [place] [address] 11/09/2023 9:15 AM EDT Office Visit Gynecology[facility]stetics [place] [address] [facility] [phone] Hayley Rojas PA-C [address] [place] [address] 11/22/2023 1:00 PM EDT Imaging Cardiac Studies, [facility] [address] [facility] [place] [address] 04/09/2024 10:00 AM EST Telemedicine Sleep Disorders Ctr [facility] [address] [facility] [place] [phone] Evi Bartholomew CRNP [address] [facility] [place] [address] Scheduled Procedures Name Priority Associated Diagnoses Date/Ti me COLONOSCOPY FLEXIBLE PROXIMA L DIAGNOSTIC Recall Screening for colon cancer Health Maintenance Due Date Last Done Comments Depression Monitoring 04/20/2022 04/20/2021 COVID-19 Vaccine ( - 2022- season) 2023 07/03/2020, 05/29/2020 Cologuard [...] Advance Directives occurred with: Patient Care Teams Lip And Gate Builder Relationship Specialty Start Date End Date Chaya Thao DO [address] [place] [address] PCP - General Family Medicine 03/03/16 documented as of this encounter
[2023-11-02] MEDS ORDERED: DICYCLOMINE HCL 10 MG CAP PO PRN (15:00)
[2023-11-02] MEDS ORDERED: ALBUTEROL HFA 8 GM INHALER INH PRN (15:00)
[2023-11-02] MEDS ORDERED: NALOXONE HCL 0.4 MG/1 ML VIAL/CARP IV PRN (15:00)
[2023-11-02] MEDS ORDERED: hydrOXYzine HCl 25 MG TAB PO PRN (15:00)
[2023-11-02] MEDS ORDERED: MAGNESIUM HYDROXIDE SUSP 30 ML UDC PO PRN (15:00)
[2023-11-02] MEDS ORDERED: ONDANSETRON INJ 2 MG/ML 2 ML VIAL IV PRN (15:00)
[2023-11-02] MEDS ORDERED: bisacodyL 10 MG SUPP PR PRN (15:00)
[2023-11-02] MEDS ORDERED: METOCLOPRAMIDE HCL INJ 5 MG/ML 2 ML VIAL IV PRN (15:00)
[2023-11-02] MEDS: SODIUM CHLORIDE 0.9% 1,000 ML IV SCH (15:59)
[2023-11-02] MEDS: KETOROLAC 30 MG/ML VIAL IV SCH (16:00)
[2023-11-02] MEDS: oxyCODONE HCL IR 5 MG TAB (IMMEDIATE RELEASE) PO PRN (18:05)
[2023-11-02] MEDS: HYDROmorphone INJ 0.5 MG/0.5 ML SYR IV PRN (18:58)
[2023-11-02] MEDS: DOCUSATE SODIUM 100 MG CAP PO SCH (20:34)
[2023-11-02] MEDS: ASPIRIN 81 MG ECTAB PO SCH (20:34)
[2023-11-02] MEDS: METOPROLOL TARTRATE 25 MG TAB PO SCH (20:35)
[2023-11-02] MEDS: SENNA 8.6 MG TAB PO SCH (20:36)
[2023-11-02] MEDS: MONTELUKAST SODIUM 10 MG TABLET PO SCH (20:36)
[2023-11-03] MEDS: LEVOTHYROXINE SODIUM 150 MCG TABLET PO SCH (05:45)
[2023-11-03] MEDS: FLUoxetine HCL 20 MG CAP PO SCH (08:00)
[2023-11-03] MEDS: MULTIVITAMIN TAB PO SCH (08:00)
[2023-11-03] MEDS: dexAMETHasone 4 MG TAB PO SCH (08:01)
[2023-11-03] MEDS: ALPRAZolam 0.5 MG TABLET PO SCH (10:08)
--- NOTE | 2023-11-03 10:27 | Orthopedic Progress Note ---
Date of Service November 03, 2023 Assessment & Plan (1) Status post right knee replacement: Overall she is doing fairly well. She is not having much pain in the right knee. She will be seen by physical therapy today for ambulation and range of motion exercises. She is on aspirin for DVT prophylaxis. The nursing staff can change her dressing after physical therapy. She can be discharged home later today. She will follow-up orthopedics in 2 weeks. Baylee Og was seen and examined at bedside this morning. Overall she is doing very well. She is not having much pain in the right knee. She has been up and ambulating. She has no complaints.. Review of Systems All systems reviewed & are unremarkable except as noted in HPI & below. Physical Exam On physical examination of the right knee, the dressing is clean and dry. Her leg is out full extension. She has active dorsiflexion plantarflexion of her right ankle.. Results & Data Results & Data Laboratory Results . Diagnostic Findings Postoperative x-rays of the right knee show the prosthesis to be in anatomic alignment without any evidence of fracture, dislocation, or loosening.. PG Care Time/CCT Total # of Minutes Spent Total Time Spent with Patient: Total time spent is greater than 50% in coordination of care (as documented) at patient's floor/unit and/or counseling patient: Coding Level of Care Code 36153 Post Operative Follow-Up Diagnoses Status post right knee replacement Z96.651
--- NOTE | 2023-11-03 10:28 | Discharge Summary ---
Date of Service November 03, 2023 Principal Diagnosis Same as "Discharge Diagnosis" noted below under Discharge Instructions. Discharge Exam On physical examination of the right knee, the dressing is clean and dry. Her leg is out full extension. She has active dorsiflexion plantarflexion of her right ankle.. Discharge Data Procedures Performed Operation Date: 11/02/23 11:05 Actual Procedures p Right Total Knee Arthroplasty(Right) - Jimmie oMnreal DO Ordered Studies 11/02/23 05:00 US - OR guided needle placemen Routine Hospital Course (1) Status post right knee replacement: On November 02, 2023 Lenka arrived at [facility] and underwent a right knee replacement without complication. She had a spinal anesthetic. Postoperatively she was started on aspirin for DVT prophylaxis and transferred to the general orthopedic floors. Her hospital course was uneventful. On postop day #1, her vital signs were stable and her pain was well-controlled. She was able to participate well with physical therapy doing ambulation and range of motion exercises. She was then discharged home. She will follow-up with orthopedics in 2 weeks. PG Care Time/CCT Total # of Minutes Spent Total Time Spent with Patient: Total time spent is greater than 50% in coordination of care (as documented) at patient's floor/unit and/or counseling patient: Discharge Plan Discharge Items Patient Disposition: Home - Self-Care Reason For Visit: Degenerative Joint Disease Right Knee Discharge Diagnosis: Right knee replacement Activity: As commented below Non-emergency contact: Surgeon Call non-emergency contact if: your wound has increased redness and your wound has increased drainage Follow-up/Referrals: Chaya Thao DO [Primary Care Provider] - Diet: Regular Addtl Attending Provider Instructions: Activity and Therapy Recommendations: * If you are using [facility] then therapy will be provided at your home until they feel you have accomplished all of your goals. * If you are using [facility] then Physical Therapy will be provided until they feel you are ready to start Outpatient Physical Therapy. * If you are not using home therapy then Outpatient Physical Therapy should start about 3-5 days from your day of surgery. Therapy will last about 6-10 weeks * It is important not to put a pillow under your knee when you are relaxing or sleeping. It is just as important to make sure you are getting your knee perfectly straight as it is to regain your knee bend. * You were shown a series of exercises in the hospital. Do these exercises three times each day including the exercises you were shown in physical therapy. * Get up and walk several times each day. For the first four weeks, try not to stand or walk for more than one hour at a time. If you do stand or walk for more than one hour, you will not hurt anything, but your leg will likely swell. * As you feel comfortable, you may change from the walker or crutches to a cane and then to independent walking. Medications: * Narcotic You will likely be sent home from the hospital with a prescription for the narcotic pain medication that worked best throughout your stay. * Cefadroxil -take the antibiotic twice a day for 10 days to help prevent infection. * Aspirin Most patients will be required to take Aspirin 81mg twice a day for 6 weeks after surgery. This is obtained [id number] and a prescription is not necessary. * Other medications may be prescribed for specific circumstances. If you have any questions, please call the office at . * Resume previous home medications unless otherwise instructed TEDs/Elastic Stockings: The white elastic stockings help limit swelling and prevent blood clots from forming in your legs.~ The more you wear them, the more they work. Wear them for six weeks. Dressing Care: The dressing can be changed after physical therapy on postop day #1. Daily dry dressing changes for a few days, especially if the incision is still draining some. If the incision is not draining then you may leave the iban open to air. If there is a little bit of drainage or if the iban are getting stuck on your clothing then cover the incision with a dry dressing. The iban will be removed at your 2 week follow-up appointment. Showering: You may shower 5 days from the day of surgery as long as the incision is no longer draining. You may shower with the iban exposed. Let soapy water run over the iban and pat them dry. Do not scrub or soak the incision. Things To Watch For: * Drainage from the incision site that occurs more than one week after your surgery. * Increased redness at the incision site. * Fever above 102 degrees Fahrenheit. * Unusual chest pain or shortness of breath. * Call [facility] at with any of the above problems Follow-Up Visit: Follow-up with Dr. Monreal's PA (Jimmie Griffith) 2-3 weeks after your day of surgery. He will remove your iban and answer any questions. If you have any additional questions or concerns, Dr Monreal is usually in the office at the same time and will be available An appointment was probably scheduled when you signed-up for surgery in the office. If you have any questions call Office Instructions: More detailed instructions as well as Frequently Asked Questions were provided in a folder by our office when you signed-up for surgery. Please review these instructions when you get home. If you have any further questions or concerns, please feel free to call the office at [phone] Pending Studies at Discharge: No Stand-Alone Forms: My [facility], Smoking Cessation Medications and DC Order Prescriptions: New cefadroxil 500 mg capsule 500 mg PO BID 10 Days Qty: 20 0RF aspirin 81 mg Tablet,Delayed Release (Dr/Ec) 81 mg PO BID 42 Days Qty: 84 0RF Continued albuterol sulfate 90 mcg/actuation HFA aerosol inhaler 2 puff INH Q6H PRN (Reason: SOB) Qty: 18 fluoxetine [Prozac] 40 mg Capsule 80 mg PO QAM levothyroxine [Levoxyl] 150 mcg tablet 150 - 300 mcg PO UD Rx Instructions: 1 tab 6 days a week and 2 tab 1 day a week montelukast 10 mg tablet 10 mg PO QPM ibuprofen 800 mg Tablet 800 mg PO TID PRN (Reason: Pain) Patient Comments: has been taking TID acetaminophen 500 mg Tablet 1,000 mg PO Q6H PRN (Reason: Pain) Patient Comments: taking TID metoprolol tartrate 25 mg Tablet 12.5 mg PO QPM alprazolam 0.5 mg tablet 0.5 mg PO DAILY oxycodone 5 mg Capsule 5 mg PO QID PRN (Reason: Pain) Qty: 30 0RF armodafinil 250 mg tablet 250 mg PO QAM Patient Comments: 10/02/23-med is currently on hold per pt. due to high blood pressure dicyclomine 10 mg Capsule 10 mg PO QID PRN (Reason: Abdominal cramps) hydroxyzine HCl 25 mg tablet 25 mg PO TID PRN (Reason: anxiety) Qty: 10 0RF omeprazole 40 mg capsule,delayed release(DR/EC) 40 mg PO QAM ferrous sulfate [Iron (ferrous sulfate)] 325 mg (65 mg iron) Tablet 325 mg PO QAM cholecalciferol (vitamin D3) [Vitamin D3] 10 mcg (400 unit) Capsule 10 mcg PO QAM Discharge Orders: Discharge Order (Routine); Ordered 11/03/23 Ordered By: Jimmie Monreal Admission Data Admit Date/Time: 11/02/23 12:31 Attending Provider: Jimmie Monreal Admit Provider: Jimime Monreal Primary Care Provider: Chaya Thao
[2023-11-05] MEDS ORDERED: LEVOTHYROXINE SODIUM 150 MCG TABLET PO SCH (06:30)
== END 2023-11-03 11:56 | disposition home or self-care (01) ==
LOC: 3E 09:15 → ASU 09:15

== ENCOUNTER 2024-04-11 08:06 | Observation (INO) ==
--- NOTE | 2024-03-13 12:14 | History & Physical Report ---
Date of Service March 13, 2024 Assessment & Plan (1) Osteoarthritis of left knee: We will proceed with a left total knee arthroplasty. Postoperatively she will be started on aspirin for DVT prophylaxis and kept overnight in the hospital for postop medical management. She plans to use energy physical therapy upon discharge. History of Present Illness Chief Complaint: Osteoarthritis of the left knee. Primary Care Provider: Chaya ThaoDO Og is a pleasant 44-year-old female who has been dealing with chronic increasing left knee pain. X-rays and clinical examination been diagnostic for advanced arthritis of the left knee. After failed conservative treatment, she has elected proceed with a left total knee arthroplasty. I did a right knee replacement on her 4 months ago and she has done well with that.. Allergies Allergy/AdvReac Type Severity Reaction Status Date / Time Iodinated Contrast Media Allergy Severe Hives, Verified 03/12/24 08:13 Shortness of Breath pollen extracts Allergy Mild Itching, Verified 03/12/24 08:13 Sneezing, Congestion Home Medications Medication Instructions Recorded Confirmed Type albuterol sulfate 90 mcg/actuation 2 puff inhalation Q6H PRN SOB #18 01/31/19 03/12/24 History aerosol inhaler grams fluoxetine 40 mg capsule (Prozac) 80 mg PO QAM 09/06/20 03/12/24 History levothyroxine 150 mcg tablet 150 - 300 mcg PO UD 09/06/20 03/12/24 History (Levoxyl) cholecalciferol (vitamin D3) 10 10 mcg PO QAM 08/23/23 03/12/24 History mcg (400 unit) capsule (Vitamin D3) ferrous sulfate 325 mg (65 mg 325 mg PO QAM 08/23/23 03/12/24 History iron) tablet (Iron (ferrous sulfate)) omeprazole 40 mg capsule,delayed 40 mg PO QAM 08/23/23 03/12/24 History release armodafinil 250 mg tablet 250 mg PO QAM 09/16/23 03/12/24 History dicyclomine 10 mg capsule 10 mg PO QID PRN Abdominal cramps 09/17/23 03/12/24 History metoprolol tartrate 25 mg tablet 12.5 mg PO QPM 10/02/23 03/12/24 History alprazolam 0.5 mg tablet 0.5 mg PO DAILY PRN Anxiety 11/02/23 03/12/24 History Past Med/Surg History Problem List Osteoarthritis of left knee Status post right knee replacement (~10/2023) Osteoarthritis of right knee Heart palpitations (Acute) Grief (Acute) Grief reaction- 09/16/23 - seen in [facility] Osteoarthritis of knees, bilateral PLMD (periodic limb movement disorder) Depression Hypothyroidism Medical History Nausea and vomiting after administration of anesthetic agent Asthma stable and controlled - usually aggravated by temperature changes/illness Seasonal allergies ADHD ADHD meds currently on hold due to palpitations Excessive daytime sleepiness GERD (gastroesophageal reflux disease) well controlled and stable History of anemia due to blood loss during menstrual cycles, had recent hysterectomy (09/28/23 at [facility]) Hypothyroidism Depression Currently stable- following with therapist- feels stable for surgery Mild obstructive sleep apnea "mild">tried device, unable to tolerate PLMD (periodic limb movement disorder) Osteoarthritis of knees, bilateral History of palpitations 09/2023, "feels it was stress induced," reason for Metoprolol>getting further testing summer 2023 (possible ZIO monitor per PCP records); f/u PCP currently (denies issues since [place] admission 09/2023) Ventricular septal defect - "born with this, has been monitored for years, thought to be mostly closed by cardiology">no current issues - follows with cardio q 10 years (no recent visits) Surgical History History of total right knee replacement (TKR) Hx of arthroscopy of right knee History of carpal tunnel release of both wrists History of esophagogastroduodenoscopy (EGD) Hx of colonoscopy Hx of LASIK [place] teeth extracted S/P laparoscopic hysterectomy 09/28/23, [facility] H/O section H/O tubal ligation Family History Other Obstructive sleep apnea Social History Smoking Status: Never smoker Second Hand Exposure: No; Do You Dip or Chew Tobacco: No; Hx Alcohol Use: No Hx Substance Use: No Preferred Language: Salvadorean Communication Ability: Effective Assistant Media Planner Required: No Beliefs That Will Affect Care: None marital status: Current Living Situation: Spouse current occupational status: employed Feels Safe at Home: Yes Assistive Devices: Glasses Review of Systems All systems reviewed & are unremarkable except as noted in HPI & below. Physical Exam On physical exam of the left knee, she has decreased range of motion. Pain over the distal femoral condyles.. Constitutional WD/WN, vitals as above Eyes PERRL, conjunctivae normal, anicteric sclerae ENMT external ear and nose normal, oropharynx normal Neck trachea midline, no thyromegaly Respiratory normal respiratory effort Cardiovascular RRR, no murmur, no edema Gastrointestinal (Abdomen) normal bowel sounds, soft, nontender, no hepatosplenomegaly Psychiatric A+Ox3, euthymic affect Results & Data Results & Data Laboratory Results . Diagnostic Findings X-rays of the left knee show advanced osteoarthritis with joint space narrowing, osteophyte formation, and [id number] articulation. PG Care Time/CCT Total # of Minutes Spent Total Time Spent with Patient: Total time spent is greater than 50% in coordination of care (as documented) at patient's floor/unit and/or counseling patient: Coding Level of Care Code None Diagnoses Osteoarthritis of left knee M17.12
--- NOTE | 2024-03-13 13:38 | Communication Note ---
Date of Service: March 13, 2024 - I was notified by Fela with surgeon's office that [facility] PCP started patient on azithromycin today for persistent cough. Negative COVID test 03/07/24. I left a message requesting patient return call to further discuss symptoms. - PCP office visit 03/13/24 [facility]: "...Almost 2 weeks ago Body aches [place] sick Sunday went to Urgent Care Low grade fever Coughing Started to get better. Sunday night started to get fever again Body aches Coughing Sore throat Has been exposed to bacterial pneumonia. Supposed to be having knee surgery on Sunday..cough, chest congestion, body aches, fever, chills, nasal/head congestion, sore throat, ear pain...Azithromycin 250 MG Oral Tablet (Zithromax Z-Junaid); Take two tablets by mouth on first day, then 1 tablet daily until gone..." - Case discussed in detail with Dr. Land who advised unless patient feels at baseline tomorrow and is cleared by PCP the case needs postponed for at least 2 weeks. Surgeon's office made aware.
--- NOTE | 2024-04-09 13:14 | Anesthesiology Consultation ---
Date of Service April 09, 2024 Assessment & Plan (1) Encounter for pre-operative examination: Plan - acceptable to proceed pending anesthesiologist evaluation am DOS. - PCP office visit 03/20/24 [facility]: "...possible pneumonia. Recent exposure to pneumonia with symptoms of fever, cough and chest heaviness. Completed a 5 day course of azithromycin with some improvement but symptoms persist. Order chest x-ray to rule out pneumonia. Prescribe Augmentin, but hold off on starting unless chest x-ray shows clear pneumonia or if symptoms do not improve in a few days..." I contacted patient who states that symptoms fully resolved after completing Augmentin. - Outpatient joint assessment: Patient is currently scheduled for inpatient pathway. If re-evaluated and patient/surgeon requests outpatient pathway, patient is not ideal candidate for outpatient joint program per 10/09/23 PAT note. - Per dishroom attendant on 03/12/24: No known infectious disease contacts, current infectious disease symptoms in past 10 days or COVID positive test result in the past 30 days. Chart Review Chart Review: Acceptable Risk for Surgery and Patient NOT seen in Pre Admission Testing History Surgery Operation Date: 04/11/24 10:00 Proposed Procedures p Left Total Knee Arthroplasty - Jimmie Monreal, DO Height/Weight Height: 5 ft 9 in Weight: 104.326 kg Allergies Allergy/AdvReac Type Severity Reaction Status Date / Time Iodinated Contrast Media Allergy Severe Hives, Verified 03/12/24 08:13 Shortness of Breath pollen extracts Allergy Mild Itching, Verified 03/12/24 08:13 Sneezing, Congestion Medications Home Medications Medication Instructions Recorded Confirmed Last Taken albuterol sulfate 90 mcg/actuation 2 puff inhalation Q6H PRN SOB #18 01/31/19 03/12/24 2 Weeks Ago aerosol inhaler grams ~10/19/23 fluoxetine 40 mg capsule (Prozac) 80 mg PO QAM 09/06/20 03/12/24 11/02/23 08:00 levothyroxine 150 mcg tablet 150 - 300 mcg PO UD 09/06/20 03/12/24 11/02/23 08:00 (Levoxyl) cholecalciferol (vitamin D3) 10 10 mcg PO QAM 08/23/23 03/12/24 11/01/23 09:00 mcg (400 unit) capsule (Vitamin D3) ferrous sulfate 325 mg (65 mg 325 mg PO QAM 08/23/23 03/12/24 10/31/23 iron) tablet (Iron (ferrous sulfate)) omeprazole 40 mg capsule,delayed 40 mg PO QAM 08/23/23 03/12/24 11/02/23 08:00 release armodafinil 250 mg tablet 250 mg PO QAM 09/16/23 03/12/24 11/01/23 09:00 dicyclomine 10 mg capsule 10 mg PO QID PRN Abdominal cramps 09/17/23 03/12/24 1 Month Ago ~10/02/23 metoprolol tartrate 25 mg tablet 12.5 mg PO QPM 10/02/23 03/12/24 11/01/23 23:00 alprazolam 0.5 mg tablet 0.5 mg PO DAILY PRN Anxiety 11/02/23 03/12/24 11/01/23 18:00 Past Medical History Medical History ADHD ADHD meds currently on hold due to palpitations Asthma stable and controlled - usually aggravated by temperature changes/illness Depression Currently stable- following with therapist- feels stable for surgery Excessive daytime sleepiness GERD (gastroesophageal reflux disease) well controlled and stable History of anemia due to blood loss during menstrual cycles, had recent hysterectomy (09/[address] [facility]) History of palpitations 09/2023, "feels it was stress induced," reason for Metoprolol>getting further testing summer 2023 (possible ZIO monitor per PCP records); f/u PCP currently (denies issues since [place] admission 09/2023) Hypothyroidism Mild obstructive sleep apnea "mild">tried device, unable to tolerate Nausea and vomiting after administration of anesthetic agent Osteoarthritis of knees, bilateral PLMD (periodic limb movement disorder) Seasonal allergies Ventricular septal defect - "born with this, has been monitored for years, thought to be mostly closed by cardiology">no current issues - follows with cardio q 10 years (no recent visits) Past Family History Family History Other Obstructive sleep apnea Past Surgical History Surgical History H/O section H/O tubal ligation History of carpal tunnel release of both wrists History of esophagogastroduodenoscopy (EGD) History of total right knee replacement (TKR) Hx of arthroscopy of right knee Hx of colonoscopy Hx of LASIK S/P laparoscopic hysterectomy 09/28/23, [facility] [place] teeth extracted Social History Smoking Status: Never smoker Do You Dip or Chew Tobacco: No Hx Alcohol Use: No alcohol intake frequency: holidays/special occasions only Hx Substance Use: No substance use type: does not use Lab Results Anesthesia Preop Results Results Anesthesia Widget: WBC 6.29 K/ul (4.8-10.8) 04/02/24 Hgb 13.2 g/dl (12.0-16.0) 04/02/24 Hct 38.5 % (37.0-47.0) 04/02/24 Plt 265 K/uL (130-400) 04/02/24 Na 137 mmol/L (136-145) 04/02/24 K 3.6 mmol/L (3.5-5.1) 04/02/24 Cl 102 mmol/L (98-107) 04/02/24 CO2 29 mmol/L (21-32) 04/02/24 BUN 11 mg/dl (6-23) 04/02/24 Creat 0.64 mg/dl (0.6-1.2) 04/02/24 Glucose Level 105 mg/dl (70-99(Fasting)) H 04/02/24 PT 11.2 Seconds (9.0-12.0) 04/02/24 PTT 28 Seconds (21-31) 04/02/24 INR 1.0 (0.9-1.1) 04/02/24 SARS-CoV-2, RNA, NAAT Negative 03/07/24 Blood Type O Positive 04/02/24 Antibody Screen NEGATIVE 04/02/24 Testing Electrocardiogram Date: 09/17/23 NSR, rate 79 bpm Chest X-Ray Date: 03/20/24 No active disease. Echocardiogram Date: 09/17/23 EF 62% Normal LV wall motion Mild cLVH No significant valvular disease Stress Test Date: 02/19/24 METS 9 MPHR 87% Negative for inducible ischemia EF 60-64% Mild cLVH Grade I diastolic dysfunction Mildly enlarged aortic root, 3.8 cm Aortic root diameter has mildly increased. Muscular ventricular septal defect not visualized on the current study Other Testing Chest CT 09/03/23 No acute finding
[~2024-04-11 08:06] MED LIST changes: -BUPIVACAINE 0.5 % 5 MG/1 ML PF 10ML VIAL ONE
[2024-04-11] MEDS ORDERED: MIDAZOLAM HCL 1 MG/ML 2ML VIAL ONE (08:46)
[2024-04-11] MEDS ORDERED: PROPOFOL IV EMULSION 10 MG/ML 20 ML VIAL IV ONE ×2 (08:47→11:02)
[2024-04-11] MEDS: ACETAMINOPHEN 500 MG TAB PO SCH (09:03)
[2024-04-11] MEDS: GABAPENTIN 900 MG DOSE PO SCH (09:03)
[2024-04-11] MEDS: FAMOTIDINE 20 MG TAB PO SCH (09:03)
[2024-04-11] MEDS: dexAMETHasone**PF** 10 MG/ML VIAL IV SCH (09:03)
[2024-04-11] MEDS: SODIUM CHLORIDE 0.9% 1,000 ML IV SCH (09:11)
--- NOTE | 2024-04-11 09:33 | History & Physical Bridge Note ---
Date of Service April 11, 2024 History & Physical Bridge Note I have examined the patient, reviewed the History & Physical and in the interval since the performance of the History & Physical I have noted the following changes of clinical significance: no changes noted
[2024-04-11] MEDS ORDERED: HYDROmorphone INJ 1 MG/ML SYRINGE IV PRN (09:53)
[2024-04-11] MEDS ORDERED: ONDANSETRON INJ 2 MG/ML 2 ML VIAL IV PRN ×2 (09:53→12:57)
[2024-04-11] MEDS ORDERED: ePHEDrine sulfate 50 MG/ML AMP IV PRN (09:53)
[2024-04-11] MEDS ORDERED: ATROPINE SULFATE 0.1 MG/ML 10ML SYR IV PRN (09:53)
[2024-04-11] MEDS ORDERED: fentaNYL citrate PF 100 MCG/2 ML VIAL IV PRN (09:53)
[2024-04-11] MEDS: TRANEXAMIC ACID 1,000 MG **IV Pre-op IV SCH (10:31)
[2024-04-11] MEDS: ceFAZolin 2000MG 2,000 MG/15 ML SYR IV SCH ×2 (10:42→17:58)
[2024-04-11] MEDS ORDERED: GLYCOPYRROLATE 0.2 MG/ML VIAL ONE (10:51)
[2024-04-11] MEDS ORDERED: KETAMINE HCL 10MG/ML SYR ONE (10:51)
[2024-04-11] MEDS ORDERED: PHENYLEPHRINE HCL 10 MG/ML VIAL ONE (11:14)
[2024-04-11] MEDS ORDERED: SODIUM CHLORIDE 0.9% PF INJ 10 ML VIAL ONE (11:14)
[2024-04-11] MEDS ORDERED: PHENYLEPHRINE 100MCG/ML 5ML SYR ONE (11:14)
[2024-04-11] MEDS: ORTHO JOINT ANESTHETIC ONE (11:17)
[2024-04-11] MEDS: ROPIV 0.5% 246mg, Ketorolac 30mg, EPINEPHrine 0.5mg in NSS INFIL SCH (11:32)
[2024-04-11] MEDS: TRANEXAMIC ACID 1,000 MG **IV Intra-op IV SCH (11:40)
--- NOTE | 2024-04-11 12:01 | Operative Report ---
PG Post Operative Report Pre & Post Diagnosis Operation Date: 04/11/24 10:00 Pre-Op Diagnosis: Osteoarthritis of left knee Post-Op Diagnosis: Osteoarthritis of left knee I identified the patient and participated in the time-out.: Yes Procedure Operation Date: 04/11/24 10:00 Actual Procedures p Left Total Knee Arthroplasty(Left) - Jimmie Monreal DO Surgeon Jimmie Monreal DO Outsole Handler None Estimated Blood Loss 30 Findings Consistent with Post-Op Diagnosis Specimens Left femoral tibial bone Description of Procedure Implants used: I used a [employer] Person[employer] total knee arthroplasty system with a size 8 CR narrow femur, D tibia, 28 oval patella, and a size 14 medial congruent polyethylene bearing. All components were cemented in place with Biomet cement. Lenka arrived [facility] for the above procedure. She was seen in the preoperative holding area and the operative extremity was identified and signed. A she was given a preoperative antibiotic, TXA, a spinal anesthetic and an adductor nerve block. She was taken back to the operating room and laid on the table in supine position. She was given basic sedation. The operative knee was then prepped and draped in sterile fashion. A timeout was done, and the patient and the operative extremity was properly identified. A midline incision was made directly over the patella. Dissection was taken down to the extensor mechanism. A subvastus arthrotomy was used. The medial retinaculum was released and the fat pad was mostly excised. The knee was flexed and the ACL, PCL, and meniscus were removed. A drill was sent down the center of the femoral canal followed by an intramedullary juju. Off that juju a distal femoral cutting block was placed. 9 mm was resected off the distal femur at 5 of valgus. A posterior referencing AP sizing guide was then placed on the distal femur. The femur measured to be a size 8. 2 drill holes were placed in 3 of external rotation. A 4-in-1 cutting block was then impacted into place. Anterior, posterior, and chamfer cuts were then made. The proximal tibia was then exposed. An external tibial alignment guide was placed. A tibial cut guide was then anchored in place and the proximal tibia was then resected. The posterior aspect of the knee was then opened up and any additional meniscus fragments and osteophytes were removed. The tibia measured to be a size D. The tibial plate was then placed in the appropriate rotation and the tibia was drilled and punched. Trial components were then placed. I used a size 14 medial congruent polyethylene insert. The knee was brought through a full range of motion and felt to be stable. The peg holes for the femoral component were then drilled. The patella was then everted and 9 mm was resected off the posterior aspect of the patella. The patella measured to be a size 28 oval. 3 peg holes were then drilled. A trial patella was placed. The knee was once again brought through a full range of motion and felt to be stable. Trial components were then removed. The surrounding soft tissues were injected with 100 cc of an orthopedic pain control cocktail. All components were then cemented into place with Biomet cement. The final polyethylene insert was then snapped into place. Once cement was dry the tourniquet was deflated. Hemostasis was obtained. A dilute betadyne lavage was then done for 3 minutes. The joint was then irrigated with normal saline solution. The subvastus arthrotomy was then closed with #1 Vicryl suture. The skin was closed with 2-0 Vicryl, 3-0V lock suture, and iban. A soft compressive dressing was placed. She was then transferred to a hospital bed and taken to the postanesthesia care unit in stable condition. She tolerated the procedure well. I attest to the content of the Intraoperative Record and any orders documented therein. Any exceptions are noted below.
[2024-04-11] MEDS ORDERED: METOCLOPRAMIDE HCL INJ 5 MG/ML 2 ML VIAL IV PRN (12:57)
[2024-04-11] MEDS ORDERED: MAGNESIUM HYDROXIDE SUSP 30 ML UDC PO PRN (12:57)
[2024-04-11] MEDS ORDERED: DICYCLOMINE HCL 10 MG CAP PO PRN (12:57)
[2024-04-11] MEDS ORDERED: ALBUTEROL HFA 8 GM INHALER INH PRN (12:57)
[2024-04-11] MEDS ORDERED: bisacodyL 10 MG SUPP PR PRN (12:57)
[2024-04-11] MEDS ORDERED: HYDROmorphone INJ 0.5 MG/0.5 ML SYR IV PRN (12:57)
[2024-04-11] MEDS ORDERED: NALOXONE HCL 0.4 MG/1 ML VIAL/CARP IV PRN (12:57)
[2024-04-11] MEDS ORDERED: ALPRAZolam 0.5 MG TABLET PO PRN (12:57)
--- NOTE | 2024-04-11 12:57 | Anesthesiology Progress Note ---
Date of Service April 11, 2024 Anesthesia Post Procedure Vital Signs Vital Signs: Temp Pulse Resp BP Pulse Ox O2 Del Method O2 Flow Rate 04/11/24 12:30 36.5 C 71 12 124/81 93 Room Air 04/11/24 12:25 72 12 127/75 100 Oxymask 2 04/11/24 12:15 76 12 130/77 100 Oxymask 7 04/11/24 12:05 36.7 C 83 21 136/75 97 Oxymask 7 04/11/24 08:47 37.0 C 69 18 121/87 96 Room Air Transfer of Care Handoff Completed per policy Notes Mental Status: alert / awake / arousable and participated in evaluation Patient Amnestic to Procedure: Yes Nausea / Vomiting: adequately controlled Pain: adequately controlled Airway Patency, RR, SpO2: stable & adequate BP & HR: stable & adequate Hydration State: stable & adequate Neuraxial Anesthesia: was administered and sensory block is resolving Anesthetic Complications: no major complications apparent and Pt Satisfied with anesthetic care
--- NOTE | 2024-04-11 12:59 | XRay Report ---
XR knee LT 1 or 2V routine CLINICAL HISTORY: Surgical Post Op COMPARISON: Left knee radiographs December 25, 2023. FINDINGS: Alignment of the total left knee arthroplasty is anatomic. There is no periprosthetic frac ture or unexpected radiopaque foreign body. There are skin iban. IMPRESSION: Expected findings following total left knee arthroplasty. ACT 112: Negative or not required by law. Electronically signed by: Michael Teresa M.D. 04/11/2024 12:55 PM
[2024-04-11] MEDS: LR 500ML BOLUS, THEN 15ML/HR IV SCH (13:36)
[2024-04-11] MEDS: LR 60ML/HR IV SCH (13:37)
[2024-04-11] MEDS: KETOROLAC 30 MG/ML VIAL IV SCH (14:06)
[2024-04-11] MEDS: oxyCODONE HCL IR 5 MG TAB (IMMEDIATE RELEASE) PO PRN (15:40)
[2024-04-11] MEDS: METOPROLOL TARTRATE 25 MG TAB PO SCH (21:07)
[2024-04-11] MEDS: ASPIRIN 81 MG ECTAB PO SCH (21:07)
[2024-04-11] MEDS: SENNA 8.6 MG TAB PO SCH (21:07)
[2024-04-11] MEDS: MIRTAZAPINE TAB 15 MG TAB PO SCH (21:07)
[2024-04-11] MEDS: DOCUSATE SODIUM 100 MG CAP PO SCH (21:07)
[2024-04-11 23:19] VITALS: RESP 16
[2024-04-12] MEDS: LEVOTHYROXINE SODIUM 150 MCG TABLET PO SCH (05:52)
[2024-04-12 07:20] VITALS: BP 100/61; PULSE 74; TEMP 97.5; O2SAT 96
[2024-04-12] MEDS: FERROUS SULFATE 325 MG TAB PO SCH (08:16)
[2024-04-12] MEDS: FLUoxetine HCL 20 MG CAP PO SCH (08:16)
[2024-04-12] MEDS: dexAMETHasone 4 MG TAB PO SCH (08:17)
[2024-04-12] MEDS: MULTIVITAMIN TAB PO SCH (08:17)
[2024-04-12] MEDS: PANTOprazole 40 MG TAB PO SCH (08:17)
--- NOTE | 2024-04-12 09:56 | Orthopedic Progress Note ---
Date of Service April 12, 2024 Assessment & Plan (1) Status post left knee replacement: Overall she is doing fairly well. She is not having much pain in her knee. She will be seen by physical therapy today for ambulation and range of motion exercises. The nursing staff can change her dressing after physical therapy. She is on aspirin for DVT prophylaxis. She can be discharged to home later today. She will follow with orthopedics in 2 weeks. Baylee Og was seen and examined at bedside this morning. Overall she is doing very well. She is not having much pain in her knee. She has been up and ambulating to the bathroom. She has no complaints.. Review of Systems All systems reviewed & are unremarkable except as noted in HPI & below. Physical Exam On physical exam of the left knee, the dressing is clean and dry. Her leg is out full extension. She has active dorsiflexion plantarflexion of her left ankle.. Results & Data Results & Data Laboratory Results . Diagnostic Findings Postoperative x-rays of the left knee show the prosthesis to be in anatomic alignment without any evidence of fracture complication, or loosening.. PG Care Time/CCT Total # of Minutes Spent Total Time Spent with Patient: Total time spent is greater than 50% in coordination of care (as documented) at patient's floor/unit and/or counseling patient: Coding Level of Care Code 38002 Post Operative Follow-Up Diagnoses Status post left knee replacement Z96.652
--- NOTE | 2024-04-12 09:57 | Discharge Summary ---
Date of Service April 12, 2024 Admission HPI (Per Admitting) Lenka is a pleasant 44-year-old female who has been dealing with chronic increasing left knee pain. X-rays and clinical examination been diagnostic for advanced arthritis of the left knee. After failed conservative treatment, she has elected proceed with a left total knee arthroplasty. I did a right knee replacement on her 4 months ago and she has done well with that.. Admission Exam (Per Admitting) On physical exam of the left knee, she has decreased range of motion. Pain over the distal femoral condyles.. Principal Diagnosis Same as "Discharge Diagnosis" noted below under Discharge Instructions. Discharge Exam On physical exam of the left knee, the dressing is clean and dry. Her leg is out full extension. She has active dorsiflexion plantarflexion of her left ankle.. Discharge Data Procedures Performed Operation Date: 04/11/24 10:00 Actual Procedures p Left Total Knee Arthroplasty(Left) - Jimmie Monreal DO Ordered Studies 04/11/24 05:00 US - OR guided needle placemen Routine Hospital Course (1) Status post left knee replacement: On April 11, 2024 Lenka arrived at [facility] and underwent a left knee replacement without complication. She had a spinal anesthetic. Postoperatively she was started on aspirin for DVT prophylaxis and transferred to the general orthopedic floors. Her hospital course is uneventful. On postop day #1, her vital signs were stable and her pain was well-controlled. She was able to participate well with physical therapy doing ambulation and range of motion exercises. She was then discharged to home. She will follow-up with orthopedics in 2 weeks. PG Care Time/CCT Total # of Minutes Spent Total Time Spent with Patient: Total time spent is greater than 50% in coordination of care (as documented) at patient's floor/unit and/or counseling patient: Discharge Plan Discharge Items Patient Disposition: Home - Self-Care Reason For Visit: Arthritis Left Knee Discharge Diagnosis: Left knee replacement Activity: As commented below Non-emergency contact: Surgeon Call non-emergency contact if: your wound has increased redness and your wound has increased drainage Follow-up/Referrals: Chaya Thao DO [Primary Care Provider] - Diet: Regular Addtl Attending Provider Instructions: Activity and Therapy Recommendations: * If you are using [facility] then therapy will be provided at your home until they feel you have accomplished all of your goals. * If you are using [facility] then Physical Therapy will be provided until they feel you are ready to start Outpatient Physical Therapy. * If you are not using home therapy then Outpatient Physical Therapy should start about 3-5 days from your day of surgery. Therapy will last about 6-10 weeks * It is important not to put a pillow under your knee when you are relaxing or sleeping. It is just as important to make sure you are getting your knee perfectly straight as it is to regain your knee bend. * You were shown a series of exercises in the hospital. Do these exercises three times each day including the exercises you were shown in physical therapy. * Get up and walk several times each day. For the first four weeks, try not to stand or walk for more than one hour at a time. If you do stand or walk for more than one hour, you will not hurt anything, but your leg will likely swell. * As you feel comfortable, you may change from the walker or crutches to a cane and then to independent walking. Medications: * Narcotic You will likely be sent home from the hospital with a prescription for the narcotic pain medication that worked best throughout your stay. * Cefadroxil -take the antibiotic twice a day for 10 days to help prevent infection. * Aspirin Most patients will be required to take Aspirin 81mg twice a day for 6 weeks after surgery. This is obtained [id number] and a prescription is not necessary. * Other medications may be prescribed for specific circumstances. If you have any questions, please call the office at . * Resume previous home medications unless otherwise instructed TEDs/Elastic Stockings: The white elastic stockings help limit swelling and prevent blood clots from forming in your legs.~ The more you wear them, the more they work. Wear them for six weeks. Dressing Care: The dressing can be changed after physical therapy on postop day #1. Daily dry dressing changes for a few days, especially if the incision is still draining some. If the incision is not draining then you may leave the iban open to air. If there is a little bit of drainage or if the iban are getting stuck on your clothing then cover the incision with a dry dressing. The iban will be removed at your 2 week follow-up appointment. Showering: You may shower 5 days from the day of surgery as long as the incision is no longer draining. You may shower with the iban exposed. Let soapy water run over the iban and pat them dry. Do not scrub or soak the incision. Diet: You may resume your previous diet. Things To Watch For: * Drainage from the incision site that occurs more than one week after your surgery. * Increased redness at the incision site. * Fever above 102 degrees Fahrenheit. * Unusual chest pain or shortness of breath. * Call [facility] at with any of the above problems Follow-Up Visit: Follow-up with Dr. Monreal's office 2-3 weeks after your day of surgery. We will remove your iban and answer any questions. If you have any additional questions or concerns, Dr Monreal is usually in the office at the same time and will be available An appointment was probably scheduled when you signed-up for surgery in the office. If you have any questions call Office Instructions: More detailed instructions as well as Frequently Asked Questions were provided in a folder by our office when you signed-up for surgery. Please review these instructions when you get home. If you have any further questions or concerns, please feel free to call the office at [phone] Pending Studies at Discharge: No Stand-Alone Forms: [facility], Smoking Cessation Medications and DC Order Prescriptions: New oxycodone 5 mg tablet 5 mg PO Q6H PRN (Reason: pain) Qty: 30 0RF cefadroxil 500 mg capsule 500 mg PO BID 10 Days Qty: 20 0RF aspirin 81 mg Tablet,Delayed Release (Dr/Ec) 81 mg PO BID 42 Days Qty: 84 0RF Continued albuterol sulfate 90 mcg/actuation HFA aerosol inhaler 2 puff INH Q6H PRN (Reason: SOB) Qty: 18 fluoxetine [Prozac] 40 mg Capsule 80 mg PO QAM levothyroxine [Levoxyl] 150 mcg tablet 150 - 300 mcg PO UD Rx Instructions: 1 tab 6 days a week and 2 tab 1 day a week metoprolol tartrate 25 mg Tablet 12.5 mg PO QPM alprazolam 0.5 mg tablet 0.5 mg PO DAILY PRN (Reason: Anxiety) armodafinil 250 mg tablet 250 mg PO QAM Patient Comments: 10/02/23-med is currently on hold per pt. due to high blood pressure dicyclomine 10 mg Capsule 10 mg PO QID PRN (Reason: Abdominal cramps) omeprazole 40 mg capsule,delayed release(DR/EC) 40 mg PO QAM ferrous sulfate [Iron (ferrous sulfate)] 325 mg (65 mg iron) Tablet 325 mg PO QAM cholecalciferol (vitamin D3) [Vitamin D3] 10 mcg (400 unit) Capsule 10 mcg PO QAM mirtazapine 15 mg Tablet 30 mg PO HS Discharge Orders: Discharge Order (Routine); Ordered 04/12/24 Ordered By: Jimmie Monreal Admission Data Admit Date/Time: 04/11/24 12:04 Attending Provider: Jimmie Monreal Admit Provider: Jimmie Monreal Primary Care Provider: Chaya Thao
[2024-04-13] MEDS ORDERED: LEVOTHYROXINE SODIUM 150 MCG TABLET PO SCH (06:30)
--- OUTSIDE RECORDS SUMMARY | 2024-04-13 07:34 | External Medical Summary | Summary of Care ---
Author Name Unknown Organization [facility] Address [address] [place] [address] Phone [phone] Care Team Providers Care Marketing Admin Name Role Phone June Colvin DO Primary Care Provider [phone] Reason for Referral * Precert (Diagnostic Medical) (Within 10 days (routine)) - Pending Review Specialty Diagnoses / Procedures Referred By Contlele t Referred To Contact Sleep Disorders Diagnoses Hypersomnia Family history of narcolepsy Procedures MULTIPLE SLEEP LATENCY TEST Evi Bartholomew CRNP [address] [place] [address] Phone: tel: fax: Referral ID Status Reason Start Date Expiration Date V isits Requested Visits Authorized [id number] Pending Review 04/09/[phone] * Precert (Diagnostic Medical) (Within 10 days (routine)) - Pending Review Specialty Diagnoses / Procedures Referred By Contlele t Referred To Contact Sleep Disorders Diagnoses JORDAN (obstructive sleep apnea) Hypersomnia PLMD (periodic limb movement disorder) Restless legs syndrome (RLS) Procedures SLEEP STUDY, W/O CPAP Evi Bartholomew CRNP [address] [place] [address] Phone: tel: fax: Referral ID Status Reason Start Date Expiration Date V isits Requested Visits Authorized [id number] Pending Review 04/09/[phone] Encounter Details Date Type Department Care Team (Late st Contact Info) Description 04/09/2024 10:00 AM EST Telemedicine [facility] [address] [place] [phone] Evi Bartholomew CRNP [address] [place] [address] JORDAN (obstructive sleep apnea)*; Hypersomnia; PLMD (periodic limb movement disorder); Restless legs syndrome (RLS); Family history of narcolepsy Allergies Active Allergy Reactions Criticality Noted Date Comments Iodinated Contrast Media 03/23/2010 hives documented as of this encounter (statuses as of 04/09/2024) Medications Cholecalciferol (VITAMIN D-3) 1000 UNITS Capsule Take 1 Cap by mouth daily. 6 Active fexofenadine (TOMMY ALLERGY) 180 MG Tablet Take 1 Tab by mouth daily. Use as needed for worsening nasal allergy symptoms 0 Active FLUoxetine HCl 40 MG Oral Capsule (PROzac) Take 2 Capsules by mouth in the morning. Pt takes 2 tablets daily. . Active Fluticasone Propionate 50 MCG/ACT Nasal Suspension (Flonase)Indicati ons:Seasonal allergic rhinitis due to pollen Administer 2 Sprays into nostril daily. 16 g 5 1 Active Famotidine 20 MG Oral Tablet (Pepcid)Indicatio ns:Acute gastritis without hemorrhage, unspecified gastritis type Take 1 Tab by mouth 2 times a day. 60 Tab 11 1 Active Dicyclomine HCl 10 MG Oral Capsule (Bentyl) Take 1 Cap by mouth 4 times a day as needed (for abdomninal pain). 60 Cap 2 1 Active Ferrous Sulfate 325 (65 Fe) MG Oral Tablet (Feosol) Take 1 Tablet by mouth daily with breakfast. Active Synthroid 150 MCG Oral Tablet 1 tablet 6 days a week and 2 tablets 1 day a week (at least 30 min prior to breakfast or other meds) levothyroxine- generic not working 40 Tablet 5 08/09/202 3 Active Montelukast Sodium 10 MG Oral Tablet (Singulair) take 1 tablet by mouth every evening 30 Tablet 2 3 Active Metoprolol Tartrate 25 MG Oral Tablet [...] with Ibuprofen 30 Tablet 1 4 Active Omeprazole 40 MG Oral Capsule Delayed Release (PriLOSEC) take 1 capsule by mouth every morning 1 hour before breakfast 30 Capsule 11 4 Active Mirtazapine 30 MG Oral Tablet (Remeron) Take 1 Tablet by mouth at bedtime. 4 Active Armodafinil 250 MG Oral Tablet Take 1 Tablet by mouth in the morning. 4 Active Fluticasone Furoate-Vilantero l 100-25 MCG/ACT Inhalation Aerosol Powder Breath Activated (BREO ellipta)Indicatio ns:Mild persistent asthma without complication Inhale 1 Puff by mouth in the morning. Use for worsening/pers istent asthma symptoms. 28 Each 5 4 Active Hospital, Clinic, or Other Facility Administered Medication Ordered Dose Route Frequency Start Date End Date Status Albuterol Sulfate (Proventil) (2.5 MG/3ML) 0.083% inhalation solution 2.5 mgIndications:SOB (shortness of breath),Mild persistent asthma without complication 2.5 mg NEBULIZER ONCE PRN 08/27/2023 08/26/2024 Active documented as of this encounter (statuses as of 04/09/2024) Active Problems Problem Noted Date Diagnosed Date [...] hypothyroidism 11/13/2016 History of 3 sections 06/29/2008 Overview (01/25/2009): Repeat C-Sx at term scheduled Patient given flu vaccine. 01/25/2009 Reyna Florentino RN VSD (ventricular septal defect) 02/06/2003 Overview (12/05/2013): echo at 22 -24wks SBE (subacute bacterial endocarditis) prophylaxi s candidate 02/06/2003 documented as of this encounter (statuses as of 04/09/2024) Resolved Problems Problem Noted Date Diagnosed Date Resolved Date Vaginal burning 04/13/2023 09/25/2023 LUQ pain 12/02/2021 01/12/2023 Allergic conjunctivitis, bilateral 01/21/2020 09/04/2020 Allergic rhinitis 01/21/2020 09/04/2020 Snoring 02/05/2018 09/04/2020 Bilateral carpal tunnel syndrome 04/06/2016 09/04/2020 Palpitations 03/03/2016 09/04/2020 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 Placenta previa without hemorrhage 06/29/2014 12/30/2016 Supervision of other high-risk 03/16/2014 04/06/2016 Overview (08/10/2015): ICD-10 update of inactive term Placenta previa without hemorrhage 03/16/2014 07/17/2014 Overview (03/25/2014): 1. Discussed complications associated with placenta previa. [...] 12/30/2016 Hypothyroid in , antepartum 12/05/2013 07/17/2014 Overview (12/30/2013): 12/05/13 @ [facility] pt taking Levothyroxine 175mcg and Liothyronine 5mg daily; TSH: 1.65 Endocrinology 12/17/13: increased cytomel 5mg in AM, 2.5mg in PM Elderly multigravida 12/05/2013 015 Overview (01/29/2014): Desires [id number]; offer MSAFP after 15wks Patient received flu vaccine. 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 01/17/2009 12/05/2013 Overview (01/20/2009): +RV culture; IV Abx in labor Ovarian cyst 07/05/2008 12/05/2013 Overview (07/28/2008): L ovarian cyst on early sono -- repeat scan early August-formerly [facility] for 08/03 Nausea with vomiting 06/29/2008 014 Overview (06/29/2008): Diet discussed. Rx Phenergan 25 mg tabs and Zofran 8 mg ODT. Poor growth, affecting management of mother, antepartum condition or complication 09/17/2006 02/06/2008 Allergic conjunctivitis 03/16/2005 1205/2015 Intermittent asthma with rel iever use up to twice per week 03/16/2005 01/21/2020 Headache 11/25/2003 02/06/2008 Overview (07/28/2015): ICD-10 update of inactive term Hypothyroidism 02/06/2003 12/05/2013 Overview (01/20/2009): On Meds -- check studies every trimester TSH @28w-13; increase Levoythyroxine to 175mcg daily repeat TSH in 4-6weeks TSH@ 36w -5.72; increase Levothyroxine to 200mcg Allergic rhinitis 02/06/2003 04/06/2016 EXTRINSIC ASTHMA, UNSPEC 02/06/200306/2007 PATELLAR TENDINITIS- patellar dislocation 02/06/2003 02/06/2008 Major depressive disorder 02/06/2003 Overview (02/27/2017): On Zoloft 200mg daily ICD-10 update of inactive term PRESCRIP-ORAL CONTRACEPT 02/06/200306/2007 documented as of this encounter (statuses as of 04/09/2024) Immunizations Name Administration Dates Next Due COVID-19 mRNA, LNP-s, No Pre serve, 2-Dose Series (Moderna) 07/03/2020,05/29/2020 H1N1 2009 Influenza, IM 03/15/2009 Hepatitis B, 20+ yrs 04/12/2023,11/10/2022,10/11 Pneumococcal Conjugate Vacci ne, 20-valent ([id number]) 10/11/2022 Pneumococcal Polysaccharide PPV23 (Pneumovax) 05/31/2011,2011(Deferred: Patient Refused) Seasonal Influenza Vac., MDV , IM, 0.5 mL (Fluzone) 01/29/2014,03/10/2013,02/14/2012,02/05,01/25/2009,05/02/2007 Seasonal Influenza, PF, 6 M & above, IM , (FluLaval or Fluzone) 03/09/2023,02/10/2022,03/24/2021,02/05,01/16/2019,02/05/2018,01/26/20 17 Seasonal Influenza, Quadriva lent, No Preserve, IM 04/06/2016 04/06/2017 TDAP (age 10 and older)(Boostrix) 07/24/2014 TDAP, [...] in the Last Year Never true 05/22/2019 Comments No Sex and Gender Information Value Date Recorded Sex Assigned at Female 11/19/2019 9:42 AM EDT Legal Sex Female 6:02 AM EST Gender Identity Female 11/19/2019 9:42 AM EDT Sexual Orientation Straight 11/19/2019 9: 42 AM EDT 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 Answer Date of Assessment Author No 09/28/2023 6:35 PM EDT Brooke Dorado RN * Are you blind or do you have serious difficulty seeing, even when wearing glasses? Answer Date of Assessment Author No 09/28/2023 6:35 PM EDT Brooke Dorado RN * Do you have serious difficulty walking or climbing stairs? (5 years old or older) Answer Date of Assessment Author No 09/28/2023 6:35 PM EDT Brooke Dorado RN * Do you have difficulty dressing or bathing? (5 years old or older) Answer Date of Assessment Author No 09/28/2023 6:35 PM EDT Brooke Dorado RN * Because of a physical, mental, or emotional condition, do you have difficulty doing errands alone such as visiting a doctors office or shopping? (15 years old or older) Answer Date of Assessment Author No 09/28/2023 6:35 PM HALINAT Brooke Dorado RN documented as of this encounter Mental Status * Because of a physical, mental, or emotional condition, do you have serious difficulty concentrating, remembering, or making decisions? (5 years old or older) Answer Entry Date Author No 09/28/2023 6:35 PM Brooke Frias RN documented in this encounter Patient Instructions * Patient Instructions* Evi Bartholomew CRNP - 04/09/2024 10:27 AM EST Oral Appliances Please contact one of the below dentists, or one listed on the website below, to be evaluated for an oral appliance for obstructive sleep apnea. This device can be very effective for treatment of your condition. Work with your dentist to have your medical insurance cover some of the cost (insurance code [id number]). Not all dentists bill medical insurance for the device. PLEASE CONTACT US IF YOU ARE DEEMED TO NOT BE A GOOD CANDIDATE FOR THE ORAL APPLIANCE BY THE DENTIST OR YOU ARE NOT ABLE TO OBTAIN ONE FOR OTHER REASONS. [facility] [phone] Dr. Teofilo Cano [facility] [address] [place] [address] [email or web address] [address] [place] [address] [email or web address] Dr. [facility] [address], [place] Dr. Jimmie Chauhan [facility] [address] [facility] [address] [place], [place] Dr. Asher Rodriguez [address], [place] [phone] Dr. Carl Salazar [address] [place] [address] [address] [place], [place] Dr. Maninder Márquez [facility] [address] [place], [place] [address] [facility] [address] [place], [place] [email or web address] -> then click "Find an [facility]ADSMDentist" and search in your location documented in this encounter Progress Notes * Evi Bartholomew CRNP - 04/09/2024 10:00 AM EST Patient location: HOME. I was in a hospital or clinic location. After connecting through televideo,patient was verified with two unique identifiers. Patient (or authorized legal branch customer service representative) was then informed that this was a Telemedicine visit and being conducted confidentially over secure lines. Methods to assure confidentiality were taken. Patient acknowledged consent and understanding of pr ivacy and security of the Telemedicine visit. The patient agreed to participate. [facility] Lenka Meyer is a 44 year old female seen today for follow-up with history of mild JORDAN and hypersomnolence with history of depression and hypothyroidism. Excessive daytime sleepiness noted since early 20s. Mother with history of JORDAN. Oldest child diagnosed with narcolepsy, age 15. -Sleep testing early s, unsure of results [...] 44, EtCO2 wnl -> MSLT not performed -09/2023: ferritin 25, transferrin sat 15% -> oral iron initiated Interim History: JORDAN: Hasn't pursued oral appliance therapy, forgot Mostly side sleeping, occasionally prone Snoring reported Sleep schedule: Mirtazapine 30 mg taken nightly In bed 11p, asleep by 11:30p Wakes once a night to use restroom, max 2x Wake up 6:45a Tired on waking Hypersomnia: Armodafinil 250 mg restarted daily by psychiatry Benefits with use, preventing need to nap but still very tired If not taken, she is exhausted and will easily doze No HH, sleep paralysis Has weakness in the knees with extreme sadness Sleep inertia Vivid dreaming with naps RLS/PLMD: Continues with rare urge sensations, resolved with movement Legs move without her realizing it Continues iron supplementation daily [place] Sleepiness Scale Question 04/09/2024 9:57 AM EST - Filed by Patient What is the chance you will doze [...] dozing Score (range: 0 - 24) 14 Restless Leg Syndrome Rating Scale Question 04/09/2024 9:58 AM EST - Filed by Patient Please complete the following questions. In the past week... Overall, how would you rate the RLS discomfort in your legs or arms? Mild Overall, how would you rate the need to move around because of your RLS symptoms? Mild How severe was your sleep disturbance due to your RLS symptoms? Mild How severe was your tiredness or sleepiness during the day due to your RLS symptoms? Moderate How severe was your RLS as a whole? Mild Overall, how severe was the impact of your RLS symptoms on your ability to carry out your daily affairs, for example, carrying out a satisfactory family, home, social, school, or work? Mild How severe was your mood disturbance due to your RLS symptoms, for example, angry, depressed, sad, anxious, or irritable? Moderate In the past week, Overall, how much relief of your RLS arm or leg discomfort did you get from moving around? Either complete or almost complete relief How often did you get RLS symptoms? Occasionally (1 day in 1 week) When you had RLS symptoms, how severe were they on average? Mild (less than 1 hour per 24 hours) Score (range: 1 - 40) 12 (Moderate) Problem List: Patient Active Problem List Diagnosis [...] Current Outpatient Medications Medication Sig Dispense Refill Armodafinil 250 MG Oral Tablet Take 1 Tablet by mouth in the morning. Fluticasone Furoate-Vilanterol 100-25 MCG/ACT Inhalation Aerosol Powder Breath Activated (BREO ellipta) Inhale 1 Puff by mouth in the morning. Use for worsening/persistent asthma symptoms. 28 Each 5 Mirtazapine 30 MG Oral Tablet (Remeron) Take 1 Tablet by mouth at bedtime. Omeprazole 40 MG Oral Capsule Delayed Release (PriLOSEC) take 1 capsule by mouth every morning 1 hour before breakfast 30 Capsule 11 Acetaminophen 325 MG Oral Tablet (Tylenol) Take 3 Tablets by mouth every 8 hours as needed for Pain, Moderate. Alternate with Ibuprofen 30 Tablet 1 Albuterol Sulfate HFA 108 (90 Base) MCG/ACT Inhalation Aerosol Solution Inhale 2 Puffs by mouth every 6 hours as needed for Cough or Wheezing. 18 g 2 ALPRAZolam 0.5 MG Oral Tablet (Xanax) Take 1 Tablet by mouth 3 times a day as needed for Sleep. 30 Tablet 0 Metoprolol Tartrate 25 MG Oral Tablet (Lopressor) [...] levothyroxine- generic not working 40 Tablet 5 Ferrous Sulfate 325 (65 Fe) MG Oral Tablet (Feosol) Take 1 Tablet by mouth daily with breakfast. Dicyclomine HCl 10 MG Oral Capsule (Bentyl) Take 1 Cap by mouth 4 times a day as needed (for abdomninal pain). 60 Cap 2 Famotidine 20 MG Oral Tablet (Pepcid) Take 1 Tab by mouth 2 times a day. 60 Tab 11 Fluticasone Propionate 50 MCG/ACT Nasal Suspension (Flonase) Administer 2 Sprays into nostril daily. 16 g 5 FLUoxetine HCl 40 MG Oral Capsule (PROzac) Take 2 Capsules by mouth in the morning. Pt takes 2 tablets daily. . fexofenadine (TOMMY ALLERGY) 180 MG Tablet Take 1 Tab by mouth daily. Use as needed for worseningnasal allergy symptoms Cholecalciferol (VITAMIN D-3) 1000 UNITS Capsule Take 1 Cap by mouth daily. Current Facility-Administered Medications Medication Dose Route Frequency Provider Last Rate Last Admin Albuterol Sulfate (Proventil) (2.5 MG/3ML) 0.083% inhalation solution 2.5 mg 2.5 mg Nebulizer Once PRN June Colvin, Physical Exam: Constitutional: Alert, oriented and in no acute distress Skin: No abnormal mask markings on face Chest: Normal respiratory effort at rest Neuro: Fluent speech Psych: Appropriate mood and affect. Assessment & Plan: JORDAN (obstructive sleep apnea) (Primary) Mild JORDAN based on 4% AHI criteria, positional related Previously intolerant to CPAP therapy with worsened sleep quality Agreeable to looking into oral appliance therapy - list of providers provided under patient instructions Continue to avoid supine sleep as able Hypersomnia Onset 20+ years Continue to avoid engaging in activities that require full alertness when feeling sleepy or tired Continue to strive for a minimum of 7 hours of total sleep time nightly with routine sleep and wakescheduling as able Family history of narcolepsy- oldest child Once JORDAN is treated, plan for reassessment with PSG/MSLT if hypersomnia persists Hold armodafinil the week of testing Complete sleep logs 2 weeks prior to testing PLMD (periodic limb movement disorder) Restless legs syndrome (RLS) May be secondary to anemia and/or untreated JORDAN Low iron stores noted in september, now s/p hysterectomy on daily iron -> hold iron x2 days prior to morning lab drawn to reassess iron stores Reminder to avoid taking iron with dairy, calcium, magnesium Follow Up: Return in about 6 months [facility] I spent a total of 40-54 minutes (exact time 40 mins) on the date of service in preparation, delivery, and documentation of the care provided to Lenka Meyer excluding any time spent in the performance of separately billed services or time spent by another provider/QHP. documented in this encounter Plan of Treatment Scheduled Orders Name Type Priority Associated Diagnoses Orde r Schedule FERRITIN Lab Routine PLMD (periodic limb movement disorder) Restless legs syndrome (RLS) Expected: 04/09/2024 (Approximate), Expires: 04/09/2025 IRON SCREEN, INCLUDING TIBC Lab Routine PLMD (periodic limb movement disorder) Restless legs syndrome (RLS) Expected: 04/09/2024 (Approximate), Expires: 04/09/2025 SLEEP STUDY, W/O CPAP Procedures Routine JORDAN (obstructive sleep apnea) Hypersomnia PLMD (periodic limb movement disorder) Restless legs syndrome (RLS) Ordered: 04/09/2024 MULTIPLE SLEEP LATENCY TEST Procedures Routine Hypersomnia Family history of narcolepsy Ordered: 04/09/2024 TOXICOLOGY, URINESCREEN W/ CONFIRMATION Lab Routine Hypersomnia Expected: 04/09/2024 (Approximate), Expires: 04/09/2025 Scheduled Procedures Name Priority Associated Diagnoses Date/Ti me COLONOSCOPY FLEXIBLE PROXIMA L DIAGNOSTIC Recall Screening for colon cancer Health Maintenance Due Date Last Done Comments Depression Monitoring 04/20/2022 04/20/2021 Cologuard 2023 Fecal Occult Blood Test 2023 Sigmoidoscopy 2023 Influenza Vaccine (FLU shot) (#1) 2024 03/09/2023, 02/10/2022, 03/24/2021, Additional history exists Mammogram 03/26/2024 03/26/2023, 03/07, 04/12/2021, Additional history exists DTap/Tdap Vaccines (3 - Td or Tdap) 07/24/2024 07/24/2014, 02/12/2009 TSH 08/16/2024 08/17/2023, 05/07, 03/19/2023, Additional history exists Diabetes Screening 10/01/2026 10/02/2023, 0 09/29/2023, 09/28/2023, Additional history exists Colonoscopy 11/24/2026 11/24/2021, 11/05, 09/27/2020, Additional history exists Colorectal Cancer Screening 11/24/2026 Lipid Panel 08/26/2028 08/27/2023, 10/19/2005 COVID-19 Vaccine Discontinued 07/03/2020, 05/29/2020 RETIRED - COLONOSCOPY-ANNUAL AGES 18-100 Discontinued 11/24/2021, 11/24/2021, 09/27/2020, Additional history exists RETIRED - COLONOSCOPY-EVERY 5 YRS AGES 18-100 Discontinued 11/24/2021, 11/24/2021, 09/27/2020, Additional history exists Cervical Cancer Screening Discontinued Pap Smear Discontinued 01/10/2022, 07/06, 12/19/2015, Additional history exists Pneumococcal Vaccine: Pediatrics (0 to 5 Years) and At-Risk Patients (6 to 64 Years) Completed 10/11/2022, 05/31/2011 Hepatitis B Vaccine Completed 04/12/2023, 11/10/2022, 10/11/2022 HPV (Gardasil) Vaccine Aged Out No lo nger eligible based on patient's age to complete [...] limb movement disorder Restless legs syndrome (RLS) Family history of narcolepsy Family history of other condition documented in this encounter Advance Directives * [...] Advance Directives occurred with: Patient Care Teams Marketing Admin Relationship Specialty Start Date End Date June Colvin DO [address] [place] [id number] PCP - General Family Medicine 11/18/23 documented as of this encounter
--- OUTSIDE RECORDS SUMMARY | 2024-04-13 21:26 | External Medical Summary | Summary of Care ---
Author Name Unknown Organization [facility] Address [address] [place] [address] Phone [phone] Care Team Providers Care Dental Laboratory Technician Apprentice Name Role Phone June Colvin DO Primary Care Provider [phone] Reason for Visit * Reason Comments eRx-Medication Refill Encounter Details Date Type Department Care Team (Late st Contact Info) Description 04/09/2024 Refill Endocrinology, [place] [address] [place], [place] [id number] Neeru Engle MD Allergies Active Allergy Reactions Criticality Noted Date Comments Iodinated Contrast Media 03/23/2010 hives documented as of this encounter (statuses as of 04/11/2024) Medications Cholecalciferol (VITAMIN D-3) 1000 UNITS Capsule Take 1 Cap by mouth daily. 12/22/19 16 Active fexofenadine (TOMMY ALLERGY) 180 MG Tablet Take 1 Tab by mouth daily. Use as needed for worsening nasal allergy symptoms 01/21/20 20 Active FLUoxetine HCl 40 MG Oral Capsule (PROzac) Take 2 Capsules by mouth in the morning. Pt takes 2 tablets daily. . Active Fluticasone Propionate 50 MCG/ACT Nasal Suspension (Flonase)Indicat ions:Seasonal allergic rhinitis due to pollen Administer 2 Sprays into nostril daily. 16 g 5 05/27/19 21 Active Famotidine 20 MG Oral Tablet (Pepcid)Indicati ons:Acute gastritis without hemorrhage, unspecified gastritis type Take 1 Tab by mouth 2 times a day. 60 Tab 11 09/01/19 21 Active Dicyclomine HCl 10 MG Oral Capsule (Bentyl) Take 1 Cap by mouth 4 times a day as needed (for abdomninal pain). 60 Cap 2 09/22/19 21 Active Ferrous Sulfate 325 (65 Fe) MG Oral Tablet (Feosol) Take 1 Tablet by mouth daily with breakfast. Active Montelukast Sodium 10 MG Oral Tablet (Singulair) take 1 tablet by mouth every evening 30 Tablet 2 12/16/19 23 Active Metoprolol Tartrate 25 MG Oral Tablet (Lopressor) Take 0.5 Tablets by mouth every evening. 30 Tablet 3 09/19/19 24 Active Albuterol Sulfate HFA 108 (90 Base) MCG/ACT Inhalation Aerosol SolutionIndicati ons:Mild intermittent asthma with exacerbation Inhale 2 Puffs by mouth every 6 hours as needed for Cough or Wheezing. 18 g 2 09/19/19 24 Active ALPRAZolam 0.5 MG Oral Tablet (Xanax) Take 1 Tablet by mouth 3 times a day as needed for Sleep. 30 Tablet 09/19/19 24 Active Acetaminophen 325 MG Oral Tablet (Tylenol) Take 3 Tablets by mouth every 8 hours as needed for Pain, Moderate. Alternate with Ibuprofen 30 Tablet 1 09/28/19 24 Active Omeprazole 40 MG Oral Capsule Delayed Release (PriLOSEC) take 1 capsule by mouth every morning 1 hour before breakfast 30 Capsule 11 02/01/20 24 Active Mirtazapine 30 MG Oral Tablet (Remeron) Take 1 Tablet by mouth at bedtime. 02/11/20 24 Active Armodafinil 250 MG Oral Tablet Take 1 Tablet by mouth in the morning. 02/12/20 24 Active Fluticasone Furoate-Vilanter ol 100-25 MCG/ACT Inhalation Aerosol Powder Breath Activated (BREO ellipta)Indicati ons:Mild persistent asthma without complication Inhale 1 Puff by mouth in the morning. Use for worsening/per sistent asthma symptoms. 28 Each 5 03/20/20 24 Active Synthroid 150 MCG Oral Tablet Take 1 pill 6 days/week and 2 pills 1 day/week APPT NEEDED FOR FUTURE REFILLS 40 Tablet 5 04/11/20 24 Active Synthroid 150 MCG Oral Tablet 1 tablet 6 days a week and 2 tablets 1 day a week (at least 30 min prior to breakfast or other meds) levothyroxine - generic not working 40 Tablet 5 12/14/19 23 024 Discontinued Hospital, Clinic, or Other Facility Administered Medication Ordered Dose Route Frequency Start Date End Date Status Albuterol Sulfate (Proventil) (2.5 MG/3ML) 0.083% inhalation solution 2.5 mgIndications:SOB (shortness of breath),Mild persistent asthma without complication 2.5 mg NEBULIZER ONCE PRN 08/27/2023 08/26/2024 Active documented as of this encounter (statuses as of 04/11/2024) Active Problems Problem Noted Date Diagnosed Date [...] as of this encounter (statuses as of 04/11/2024) Resolved Problems Problem Noted Date Diagnosed Date [...] Elderly multigravida 12/05/2013 015 Overview (01/29/2014): Desires [id number]; offer MSAFP after 15wks Patient received flu vaccine. 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 01/17/2009 12/05/2013 Overview (01/20/2009): +RV culture; IV Abx in labor Ovarian cyst 07/05/2008 12/05/2013 Overview (07/28/2008): L ovarian cyst on early sono -- repeat scan early August-[facility] for 08/03 Nausea with vomiting [...] as of this encounter (statuses as of 04/11/2024) Immunizations Name Administration Dates Next Due COVID-19 mRNA, LNP-s, No Pre serve, 2-Dose Series (Moderna) 07/03/2020,05/29/2020 H1N1 2009 Influenza, IM 03/15/2009 Hepatitis B, 20+ yrs 04/12/2023,11/10/2022,10/11 Pneumococcal Conjugate Vacci ne, 20-valent ([id number]) 10/11/2022 Pneumococcal Polysaccharide PPV23 (Pneumovax) 05/31/2011,2011(Deferred: Patient [...] 09/28/2023 6:35 PM HALINAT Brooke Dorado RN * Do you have [...] 09/28/2023 6:35 PM EDT Brooke Dorado RN documented as of this encounter Mental Status * Because of a physical, mental, or emotional condition, do you have serious difficulty concentrating, remembering, or making decisions? (5 years old or older) Answer Entry Date Author No 09/28/2023 6:35 PM Brooke Frias RN documented in this encounter Miscellaneous Notes * Telephone Encounter - Cherri Angel MD - 04/11/2024 9:13 AM ESTSigned Prescriptions: Disp Refills Synthroid 150 MCG Oral Tablet 40 Tab*5 Sig: Take 1 pill 6 days/week and 2 pills 1 day/week APPT NEEDED FOR FUTURE REFILLS Authorizing Provider: CHERRI ANGEL * Telephone Encounter - Shavon Quintana [facility] - 04/11/2024 8:24 AM EST Pending Prescriptions: Disp Refills Synthroid 150 MCG Oral Tablet [Pharmacy Me*40 Tab*5 Sig: TAKE 1 TABLET BY MOUTH ONCE DAILY FOR 6 DAYS PER WEEK AND 2 TABLETS 1 DAY A WEEK AT LEAST 30 MINUTES BEFORE BREAKFAST OR OTHER MEDS * Telephone Encounter - Shavon Quintana [facility] - 04/11/2024 8:22 AM EST Pending Prescriptions: Disp Refills Synthroid 150 MCG Oral Tablet [Pharmacy M*40 Tab*5 Sig: TAKE 1 TABLET BY MOUTH ONCE DAILY FOR 6 DAYS PER WEEK AND 2 TABLETS 1 DAY A WEEK AT LEAST 30 MINUTES BEFORE BREAKFAST OR OTHER MEDS Last Visit: 09/27/2022 (in office), Visit date not found (telemedicine) Next Visit: Visit date not found If no future appointments scheduled, and last appointment is greater than a year ago, please schedule patient for a follow-up appointment Last date the medication was ordered: 12/13/22 Is this request for a controlled substance?No [...] 11:48 AM TSH 1.09 04/12/2020 11:05 AM LDL 114 08/27/2023 08:37 AM LDL 78 10/19/2005 11:23 AM ALT 19 09/29/2023 06:34 AM ALT 28 11/25/2014 02:08 PM HGBA1C 5.3 09/26/2023 08:30 AM HGBA1C 5.5 03/14/2019 10:03 AM documented in this encounter Plan of Treatment Scheduled Procedures Name Priority Associated Diagnoses Date/Ti [...] Advance Directives occurred with: Patient Care Teams Dental Laboratory Technician Apprentice Relationship Specialty Start Date End Date June Colvin DO [address] [address] PCP - General Family Medicine 11/18/23 documented as of this encounter
== END 2024-04-12 11:28 | disposition home or self-care (01) ==
LOC: 3N 08:06 → ASU 08:06